=== PATIENT | female | born 1950 | race Caucasian/White ===

== ENCOUNTER → 2018-07-03 12:56 | Outpatient (CLI) | payer MEDICARE, OTHER, SELFPAY ==
--- NOTE | 2018-07-03 13:05 | XR_ITS ---
EXAM: XR thoracic spine 3V HISTORY: Back pain, follow-up fracture ITS.REASON: COMPRESSION FX Comparison: 04/05/2017 FINDINGS: There is normal alignment. There is diffuse osteopenia. There has been a prior vertebroplasty at T7. On her wedge compression changes are also present at the 5 with loss of height anteriorly of 50%. The compressive changes were present on 04/05/2017 MRI. The vertebral plasty has been performed in the interval. There is minimal amount of extrusion of the bone cement in the disc space. IMPRESSION: 1. Wedge compression fractures of T5 and T7. Prior vertebroplasty at T7. No significant change from the previous MRI 2. Generalized osteopenia
--- NOTE | 2018-07-03 13:05 | XR_ITS ---
EXAM: XR lumbar spine min 4V HISTORY: Back pain, follow-up compression fracture ITS.REASON: COMPRESSION FX ORDERING PHYSICIAN: Enio Pritchett PATIENT AGE: 68 years COMPARISON: None FINDINGS: Normal alignment. No fracture or dislocation. There is degenerative disc disease at L5-S1. Atherosclerotic calcification is present in the aortoiliac vessels. Facet arthritic changes are present also at L4-L5 and L5-S1. 3 mm calcific density overlies upper pole the right kidney and a 4 mm calcific density overlies upper pole the left kidney consistent with bilateral nephrolithiasis. IMPRESSION: 1. Degenerative disc disease L5-S1 with facet arthritic changes at L4-L5 and L5-S1. 2. Bilateral nephrolithiasis
== END ==
PROVIDERS: PCP Family Medicine; Visit Provider Family Medicine
DX: S22.050A Wedge compression fracture of T5-T6 vertebra, initial encounter for closed fracture (principal)
CPT/HCPCS: 72072; 72110

== ENCOUNTER → 2020-03-25 13:30 | Outpatient (CLI) | payer MEDICARE, OTHER, SELFPAY ==
[2020-03-25 13:45] LABS: Chol/HDL Ratio 3.7 (1-3.5); Cholesterol 187 mg/dl (140-200); HDL Cholesterol 51 mg/dl (40-60); Triglycerides 130 mg/dl (30-150); VLDL Cholesterol 26 mg/dL (0-40)
[2020-03-25 13:56] LABS: Direct LDL Cholesterol 106.81 mg/dL (100-129)
[2020-03-25 14:04] LABS: T4 (Thyroxine) 10.9 ug/dl (5.53-11.0)
[2020-03-25 14:17] LABS: Thyroid Stimulating Hormone 2.33 uIU/mL (0.465-4.68)
== END ==
PROVIDERS: Visit Provider Family Medicine
DX: I10 Essential (primary) hypertension (principal); R53.83 Other fatigue
CPT/HCPCS: 80061; 84436; 84443

== ENCOUNTER 2020-04-05 17:37 | Observation (INO) | payer MEDICARE, OTHER, SELFPAY ==
[2020-04-05] VITALS (8 sets, daily range): BP systolic 90–136; BP diastolic 51–87; PULSE 70–86; RESP 16–25; TEMP 36.9–37.2; O2SAT 95–97; BMI 27.4; BMI 29.0
--- NOTE | 2020-04-05 17:41 | XR_ITS ---
PROCEDURE: XR CHEST PORTABLE CLINICAL HISTORY: soa Shortness of air COMPARISON: No exams were available for comparison FINDINGS: Mild cardiomegaly without failure. The lungs are clear without infiltrates, suspicious nodules, or pleural effusions. Prior vertebroplasty midthoracic spine IMPRESSION: Mild cardiomegaly otherwise negative Dictated by: Demian Haskins MD 04/06/2020 07:21 Electronically signed by Demian Haskins MD in [place] 04/06/2020 07:21
--- NOTE | 2020-04-05 17:41 | ECG_ITS ---
APPROVED REPORT Exam: Resting ECG HR:83 bpm ECG Measurements Heart Rate 83 AXES WI 170 P 65 QRSd 88 QRS 41 QT 362 T 59 QTc 425 <Conclusion> Normal sinus rhythm RSR' or QR pattern in V1 suggests right ventricular conduction delay Borderline ECG Electronically signed by : Derrell Saeed, 04/06/2020 17:55:00
--- NOTE | 2020-04-05 17:41 | HMH.EDGENADL ---
ED Disposition Clinical Impression: Elevated troponin, Viral upper respiratory illness Disposition: Admitted as Observation Condition on Discharge: Fair Referrals: Rafael Pritchett MD [Primary Care Provider] - - Critical Care Critical Care Time: No Attestation: On , the high probability of a clinically significant, sudden or life threatening deterioration of the following system(s) required my full and direct attention, intervention and personal management. The time I documented below is in addition to time spent performing reported procedures but includes the following listed in this critical care notation. Medical Decision Making - Thanh Inquiry Pt receiving controlled substance: No Vital Signs: 04/05/20 17:37 04/05/20 18:32 Temperature 98.4 F Temperature Source Oral Pulse Rate [Right] 86 84 Respiratory Rate 25 H 20 Blood Pressure [Right Arm] 136/87 97/69 L Blood Pressure Mean [Right Arm] 103 78 Blood Pressure Source [Right Arm] Automatic Cuff Blood Pressure Position [Right Arm] Sitting 02 Sat by Pulse Oximetry 97 97 Oxygen Delivery Method Room Air - Lab Data Lab Results 04/05/20 18:02: Specimen Source R/r, O2 % R/a, ABG pH 7.42, ABG pCO2 29.8 L, ABG pO2 71.2 L, ABG HCO3 19.0 L, ABG Total CO2 19.9 L, ABG O2 Saturation 94, ABG Base Excess -5.5 L, Demian Test Y 04/05/20 18:04: WBC 11.2 H, RBC 3.76 L, Hgb 12.7, Hct 37.1, MCV 98.6, MCH 33.7 H, MCHC 34.2, RDW 13.0, Plt Count 213, MPV 7.9, Neut % (Auto) 90.3 H, Lymph % (Auto) 4.9 L, [place] % (Auto) 3.5, Eos % (Auto) 1.1, Baso % (Auto) 0.2, Neut # (Auto) 10.1 H, Lymph # (Auto) 0.5 L, [place] # (Auto) 0.4, Eos # (Auto) 0.1, Baso # (Auto) 0.0, Total Counted 100, Neutrophils % (Manual) 85 H, Band Neutrophils % 3.0, Lymphocytes % (Manual) 5 L, Monocytes % (Manual) 5, Metamyelocytes % 2.0 H, Platelet Estimate Normal, RBC Morphology Normal 04/05/20 18:04: Sodium 132 L, Potassium 4.6, Chloride 102, Carbon Dioxide 23, Anion Gap 11.6, BUN 29 H, Creatinine 1.80 H, Estimated Creat Clear 35, Estimated GFR 28 L, Est GFR ( Amer) 34 L, Glucose 113 H, Calcium 8.9, Total Bilirubin 0.9, AST 25, ALT 15, Alkaline Phosphatase 99, Troponin I 0.25 H, Total Protein 6.5, Albumin 3.5, Globulin 3.0, Albumin/Globulin Ratio 1.2 04/05/20 18:04: Lactate 1.2 04/05/20 18:04: NT-Pro-B Natriuret Pep 1060 H 04/05/20 18:04: SARS-CoV-2 IgG Ab (Rapid) Negative, SARS-CoV-2 IgM Ab (Rapid) Negative Result diagrams: 04/05/20 18:04 04/05/20 18:04 Orders (Tests/Meds): ED MEDICATIONS Discontinued Medications Generic Name Dose Route Start Last Admin Trade Name Cuongq PRN Reason Stop Dose Admin Ketorolac Tromethamine 15 mg 04/05/20 18:28 04/05/20 18:57 Toradol 30mg/Ml Vial IV 04/05/20 18:29 15 mg ONCE ONE Administration ORDERS Category Date Time Status XR chest portable Stat Exams 04/05/20 17:41 Taken C-Reactive Protein Stat Lab 04/05/20 18:04 Results Comprehensive Metabolic Panel Stat Lab 04/05/20 18:04 Results Erythrocyte Sedimentation Rate Stat Lab 04/05/20 18:04 Received Flu A&B Antigens, Rapid [Rapid Influenza A&B Antigens] Lab 04/05/20 18:45 Received Stat Respiratory Panel (COVID), PCR Stat Lab 04/05/20 18:45 Received Troponin I Q3H Lab 04/05/20 20:00 Ordered Troponin I Q3H Lab 04/05/20 23:45 Ordered Troponin I Stat Lab 04/05/20 18:04 Results Blood Culture Stat Micro 04/05/20 18:04 Received ABG [Arterial Blood Gas] Stat RT 04/05/20 17:43 Ordered ECG Request by /Reuben Stat Y 04/05/20 17:41 Ordered - Radiology Data #1 Image(s): Chest Image Reviewed: Yes I reviewed the patient's radiology image Preliminary Findings: Normal/NAD - ECG Data Tracing #1 EKG interpreted by Peewee Chaparro MD: Rhythm: sinus Rate: 83 [place]: normal Ectopy: none Conduction: normal ST Segment Changes: none T Wave Changes: none Q Waves: none No evidence of acute ischemia or injury Baseline artifact present, but I consider the EKG adequate for accur
[2020-04-05 18:03] LABS: ABG Base Excess -5.5 mmol/L (-2.4-2.3); ABG Oxygen Saturation 94 % (90-100); ABG PCO2 29.8 mmhg (35.0-45.0); ABG PH 7.42 mmol/L (7.35-7.45); ABG PO2 71.2 mmhg (80-100); ABG TCO2 19.9 mmhg (23-27); Allen's Test Y; Oxygen R/A %; Source R/R
[2020-04-05 18:16] LABS: Basophils % 0.2 % (0.1-2.0); Eosinophils # 0.1 K/mm3 (0.0-0.4); Eosinophils % 1.1 % (0.1-12.0); Hematocrit 37.1 % (37.0-47.0); Hemoglobin 12.7 g/dL (12.2-16.2); Lymphocytes # 0.5 K/mm3 (0.7-4.5); Lymphocytes % 4.9 % (10-50); Mean Corpuscular HGB Conc 34.2 g/dL (31.8-35.4); Mean Corpuscular Hemoglobin 33.7 pg (27.0-31.2); Mean Corpuscular Volume 98.6 fl (81-99); Mean Platelet Volume 7.9 fl (7.4-10.4); Monocytes # 0.4 K/mm3 (0.1-1.0); Monocytes % 3.5 % (1.7-9.3); Neutrophils # 10.1 K/mm3 (1.8-7.8); Neutrophils % 90.3 % (37.0-80.0); Platelet Count 213 K/mm3 (142-424); Red Blood Count 3.76 M/mm3 (4.20-5.40); White Blood Count 11.2 K/mm3 (4.8-10.8)
[2020-04-05 18:17] LABS: MANUAL DIFFERENTIAL MANUAL DIFFERENTIAL (MANUAL DIFF)
[2020-04-05 18:20] LABS: Chloride 102 mmol/L (98-107)
[2020-04-05 18:21] LABS: Sodium 132 mmol/L (136-145)
[2020-04-05 18:23] LABS: Alanine Aminotransferase 15 U/L (12-78); Alkaline Phosphatase 99 U/L (38-126); Aspartate Amino Transferase 25 U/L (14-36); Bilirubin,Total 0.9 mg/dl (0.2-1.3); Blood Urea Nitrogen 29 mg/dl (7-17); Creatinine Clearance Estimated 35 mL/min (50-200); Estimated Glomerular Filt Rate 28 ml/min (>60); GFR (African American) 34 ML/MIN (>60); Potassium 4.6 mmoL/L (3.5-5.1)
[2020-04-05 18:24] LABS: Albumin Level 3.5 g/dl (3.5-5.0); Albumin/Globulin Ratio 1.2 (1.1-1.8); Anion Gap 11.6 mEq/L (5-15); Calcium 8.9 mg/dl (8.4-10.2); Carbon Dioxide 23 mmol/L (22.0-30.0); Glucose 113 mg/dl (74-100); Lactic Acid 1.2 mmol/L (0.7-2.1); Total Protein,Serum 6.5 g/dl (6.3-8.2)
[2020-04-05 18:33] LABS: NT Pro Brain Natriuretic Pep. 1060 pg/mL (0-125)
[2020-04-05 18:36] LABS: Troponin I 0.25 ng/ml (0.00-0.034)
[2020-04-05 18:42] LABS: Lymphocytes % 5 % (10-50); Monocytes % 5 % (2-9); Neutrophils % 85 % (42-76); Platelet Estimate Normal; RBC Morphology Normal; Total Cells Counted 100
[2020-04-05 18:43] LABS: Coronavirus 19 IgG Antibody Negative (Negative); Coronavirus 19 IgM Antibody Negative (Negative)
--- NOTE | 2020-04-05 19:04 | PC.NURSE ---
speaking to Dr Montaño
[2020-04-05 19:07] LABS: Adenovirus,PCR Not Detected (NotDetected); Bordetella Pertussis Not Detected (NotDetected); Chlamydophila Pneumoniae, PCR Not Detected (NotDetected); Coronavirus 19, PCR Not Detected (NotDetected); Coronavirus 229E Not Detected (NotDetected); Coronavirus NL63 Not Detected (NotDetected); Coronavirus OC43 Not Detected (NotDetected); Coronovirus HKU1,PCR Not Detected (NotDetected); Human Metapneumovirus Not Detected (NotDetected); Influenza A, PCR Not Detected (NotDetected); Influenza AH1, 2009 Not Detected (NotDetected); Influenza AH1, PCR Not Detected (NotDetected); Influenza AH3,PCR Not Detected (NotDetected); Influenza B, PCR Not Detected (NotDetected); Mycoplasma Pneumoniae, PCR Not Detected (NotDected); Parainfluenza 1, PCR Not Detected (NotDetected); Parainfluenza 2, PCR Not Detected (NotDetected); Parainfluenza 3, PCR Not Detected (NotDetected); Parainfluenza 4, PCR Not Detected (NotDetected); Respiratory Syncytial Virus Not Detected (NotDetected); Rhinovirus/Enterovirus Not Detected (NotDetected)
[2020-04-05 19:08] LABS: C-Reactive Protein 172.4 mg/L (0-4)
[2020-04-05 19:20] LABS: Erythrocyte Sedimentation Rate 110 mm/hr (0-30)
--- NOTE | 2020-04-05 20:47 | PC.NURSE ---
report called to ALEXANDRA Zavala
--- NOTE | 2020-04-05 21:00 | PC.NURSE ---
patient up to floor via wheelchair.
[2020-04-05 21:13] LABS: Troponin I 0.21 ng/ml (0.00-0.034)
--- NOTE | 2020-04-05 21:18 | HMH.HP ---
*Admission Date: 04/05/20 *Chief complaint: cough *History of present illness: pt presented to the ed with fever and prod cough with headache and chest pain -ught in by ambulance. States that she has a bad headache. She has a cough, sometimes produces small amounts of colored mucus. She has a sore throat. She has rhinorrhea. She is short of breath when she lays down. She says she has had the symptoms for 5 days, but has had fevers for 9 days. She is a smoker and has been diagnosed with COPD, but is not on any treatment for that. No known exposures to any illnesses, including COVID-19. pt was admitted for eval and treatment - [facility] History I have reviewed the patient's past medical history: Yes Medical History: Reports:: Anxiety, Congestive Heart Failure, Chronic Obstructive Pulmonary Disease (COPD), Depression, Gall Bladder Disease, Hyperlipidemia, Hypertension, Renal Disease *Have you ever received a pneumonia vaccine?: No *Have you received a flu vaccine this season?: No Other Medical History: Reports: Arthritis Other Surgeries: Yes: Appendectomy - *Social History Smoking Status: Current every day smoker # Packs/Day (cigarettes): 1 Alcohol Intake: never *Occupational Status:: retired *Travel in the last 8 weeks: None - Psychiatric History Pschychiatric History:: Reports:: Anxiety, Depression Family Hx:: Non-contributory Review of Systems - Review of Systems Review of systems:: pertinent systems reviewed and negative unless documented below - Constitutional Reports fatigue, Reports fever(s), Reports weakness - Eyes Denies change in vision - ENT Denies sore throat - *Cardiovascular Reports shortness of breath with activity, Denies chest pain at rest - *Respiratory Denies cough - *Gastrointestinal Denies abdominal pain - *Genitourinary Denies blood in urine - *Musculoskeletal Denies joint pain - Integumentary/Breasts Denies rash - *Neurologic Reports headache(s), Denies seizure-like activity, Denies localized weakness - Psychiatric Denies anxiety Meds Home Medications Medication Instructions Recorded Confirmed Type aspirin 81 mg tablet,delayed 81 mg PO DAILY 03/25/20 04/05/20 History release diltiazem HCl 120 mg capsule,24 120 mg PO DAILY cap 03/25/20 04/05/20 History hr,extended release fluoxetine 20 mg capsule 20 mg PO DAILY cap 03/25/20 04/05/20 History lorazepam 1 mg tablet 1 mg PO TID tab 03/25/20 04/05/20 History losartan 100 mg tablet 100 mg PO DAILY tab 03/25/20 04/05/20 History meloxicam 7.5 mg tablet 7.5 mg PO DAILY tab 03/25/20 04/05/20 History omeprazole 40 mg capsule,delayed 40 mg PO DAILY cap 03/25/20 04/05/20 History release ropinirole 1 mg tablet 1 mg PO DAILY tab 03/25/20 04/05/20 History spironolactone 25 mg tablet 25 mg PO DAILY tab 03/25/20 04/05/20 History Atorvastatin Calcium [Lipitor 40mg 40 mg PO DAILY 04/05/20 04/05/20 History Tab] Hydrocodone/Acetaminophen [[place] 1 tab PO BID 04/05/20 04/05/20 History 7.5-325 Tablet] Ranolazine [Ranolazine ER] 500 mg PO BID 04/05/20 04/05/20 History Allergies Allergy/AdvReac Type Severity Reaction Status Date / Time No Known Allergies Allergy Unverified 03/25/20 10:29 Exam Vital signs and Labs for Last 24 Hours: Temp Pulse Resp BP Pulse Ox 98.7 F 71 21 90/57 L 96 04/05/20 21:11 04/05/20 21:11 04/05/20 21:11 04/05/20 21:11 04/05/20 21:11 Laboratory Results - last 24 hr 04/05/20 18:02: Specimen Source R/r, O2 % R/a, ABG pH 7.42, ABG pCO2 29.8 L, ABG pO2 71.2 L, ABG HCO3 19.0 L, ABG Total CO2 19.9 L, ABG O2 Saturation 94, ABG Base Excess -5.5 L, Demian Test Y 04/05/20 18:04: WBC 11.2 H, RBC 3.76 L, Hgb 12.7, Hct 37.1, MCV 98.6, MCH 33.7 H, MCHC 34.2, RDW 13.0, Plt Count 213, MPV 7.9, Neut % (Auto) 90.3 H, Lymph % (Auto) 4.9 L, [place] % (Auto) 3.5, Eos % (Auto) 1.1, Baso % (Auto) 0.2, Neut # (Auto) 10.1 H, Lymph # (Auto) 0.5 L, [place] # (Auto) 0.4, Eos # (Auto) 0.1, Baso # (Au
[2020-04-06] VITALS: BP 91/56; PULSE 60; PULSE 62; RESP 18; TEMP 36.7; O2SAT 94
[2020-04-06 00:23] LABS: Troponin I 0.16 ng/ml (0.00-0.034)
[2020-04-06 04:00] VITALS: BP 93/45; PULSE 60; PULSE 70; RESP 16; TEMP 36.7; O2SAT 94
--- NOTE | 2020-04-06 04:42 | PC.NURSE ---
Pt is a new admit this shift. Pt was admitted for elevated troponin and viral upper respiratory infection. Pt is A&O x4. Lung sounds are clear with the exception of the bilatral bases which have expiratory wheezing. Bowel sounds are active in all four quadrants. Skin is warm, dry and intact. Pt has a 20 g in the LAC, IV flushes appropriately. Pt is on RA and has tolerated appropriately t/o this shift. Call light is within reach along with all other safety precautions. No complaints at this time, will continue to monitor.
[2020-04-06 05:48] VITALS: BMI 29.0
--- NOTE | 2020-04-06 07:01 | PC.NURSE ---
MD Cain notified of blood culture results. New orders: Start pt on Invanz 1 Gram IV.
[2020-04-06 08:00] VITALS: BP 97/51; PULSE 60; PULSE 65; RESP 16; TEMP 36.7; O2SAT 94
--- NOTE | 2020-04-06 08:11 | P.CONPHA_ITS ---
[facility] Pharmacy VTE Monitoring - Patient Demographics Admission date: 04/05/20 Report Date: 04/06/20 Time: 08:11 Allergies/Adverse Reactions: Patient Allergies No Known Allergies Allergy (Unverified 03/25/20 10:29) Height: 1.65 m Weight: 78.982 kg Patient Problems: Current Active Problems Elevated troponin (Acute) Viral upper respiratory illness (Acute) - VTE Risk Labs: VTE Related Lab Results Hgb 12.7 g/dL (12.2-16.2) 04/05/20 18:04 Hct 37.1 % (37.0-47.0) 04/05/20 18:04 Plt Count 213 K/mm3 (142-424) 04/05/20 18:04 BUN 29 mg/dl (7-17) H 04/05/20 18:04 Creatinine 1.80 mg/dl (0.52-1.04) H 04/05/20 18:04 Estimated Creat Clear 35 mL/min (50-200) 04/05/20 18:04 VTE Score: 10 VTE Risk Level: Moderate Risk - Prophylaxis VTE Prophylaxis Ordered?: Yes Types of VTE Prophylaxis: TEDS Knee High Location of Applied Device: Bilateral Lower Extremeties - VTE Diagnosis Confirmed Treatment or plan recommended: Continue Current Treatment
--- NOTE | 2020-04-06 09:15 | HMH.ACPN2 ---
Internal Medicine - PN: Subj *Date: 04/07/20 *Time: 06:44 Interval history: doing ok - has positive blood culture - gram neg - abx started Exam Vital signs and Labs for Last 24 Hours: Temp Pulse Resp BP Pulse Ox 98.1 F 65 16 97/51 L 94 L 04/06/20 08:00 04/06/20 08:00 04/06/20 08:00 04/06/20 08:00 04/06/20 08:00 Laboratory Results - last 24 hr 04/05/20 18:02: Specimen Source R/r, O2 % R/a, ABG pH 7.42, ABG pCO2 29.8 L, ABG pO2 71.2 L, ABG HCO3 19.0 L, ABG Total CO2 19.9 L, ABG O2 Saturation 94, ABG Base Excess -5.5 L, Demian Test Y 04/05/20 18:04: WBC 11.2 H, RBC 3.76 L, Hgb 12.7, Hct 37.1, MCV 98.6, MCH 33.7 H, MCHC 34.2, RDW 13.0, Plt Count 213, MPV 7.9, Neut % (Auto) 90.3 H, Lymph % (Auto) 4.9 L, [place] % (Auto) 3.5, Eos % (Auto) 1.1, Baso % (Auto) 0.2, Neut # (Auto) 10.1 H, Lymph # (Auto) 0.5 L, [place] # (Auto) 0.4, Eos # (Auto) 0.1, Baso # (Auto) 0.0, Total Counted 100, Neutrophils % (Manual) 85 H, Band Neutrophils % 3.0, Lymphocytes % (Manual) 5 L, Monocytes % (Manual) 5, Metamyelocytes % 2.0 H, Platelet Estimate Normal, RBC Morphology Normal 04/05/20 18:04: Sodium 132 L, Potassium 4.6, Chloride 102, Carbon Dioxide 23, Anion Gap 11.6, BUN 29 H, Creatinine 1.80 H, Estimated Creat Clear 35, Estimated GFR 28 L, Est GFR ( Amer) 34 L, Glucose 113 H, Calcium 8.9, Total Bilirubin 0.9, AST 25, ALT 15, Alkaline Phosphatase 99, Troponin I 0.25 H, C-Reactive Protein 172.4 H, Total Protein 6.5, Albumin 3.5, Globulin 3.0, Albumin/Globulin Ratio 1.2 04/05/20 18:04: Lactate 1.2 04/05/20 18:04: NT-Pro-B Natriuret Pep 1060 H 04/05/20 18:04: SARS-CoV-2 IgG Ab (Rapid) Negative, SARS-CoV-2 IgM Ab (Rapid) Negative 04/05/20 18:04: ESR 110 H 04/05/20 18:45: Influenza Type A Ag Negative, Influenza Type B Ag Negative 04/05/20 18:45: Chlamy pneumoniae PCR Not detected, Adenovirus (PCR) Not detected, B. pertussis DNA (PCR) Not detected, Coronavirus OC43 (PCR) Not detected, Coronavirus HKU1 (PCR) Not detected, Coronavirus 229E (PCR) Not detected, COVID-19 PCR Not detected, Coronavirus NL63 (PCR) Not detected, Human Metapneumovir PCR Not detected, Influenza A (H1) PCR Not detected, Influ A (H1N1/09) PCR Not detected, Influenza A (H3) PCR Not detected, Influenza Type A (PCR) Not detected, Influenza Type B (PCR) Not detected, M. pneumoniae (PCR) Not detected, Parainfluenza 1 (PCR) Not detected, Parainfluenza 2 (PCR) Not detected, Parainfluenza 3 (PCR) Not detected, Parainfluenza 4 (PCR) Not detected, RSV (PCR) Not detected, Entero/Rhino (PCR) Not detected 04/05/20 20:40: Troponin I 0.21 H 04/05/20 23:50: Troponin I 0.16 H I & O for Last 24 hours: Intake & Output 04/03/20 04/04/20 04/05/20 04/06/20 11:59 11:59 11:59 11:59 Intake Total 480 / 480 Balance 480 / 480 Weight 174 lb 2 oz Microbiology Reports for the Last 24 Hours: Microbiology 04/05/20 18:04 Blood Blood Culture - Preliminary 04/05/20 18:04 Blood Blood Culture - Preliminary - Constitutional no acute distress - *Routine HEENT Exam Head: Present: normocephalic Eye: Present: EOMI, PERRL ENT: Present: mucous membranes dry - *Routine Neck Exam Present: supple - *Routine Respiratory Exam Present: CTA bilaterally - *Routine Cardiovascular Exam Present: RRR - *Routine Abdominal Exam Present: soft - *Routine Extremities Exam Absent: calf tenderness - *Routine Skin Exam Present: intact - *Routine Neurological Exam Present: alert - Routine Psychiatric Exam Present: normal affect Assessment and Plan (1) Elevated erythrocyte sedimentation rate Current visit: Yes Status: Acute Category: Medical Code(s): R70.0 - Elevated erythrocyte sedimentation rate (2) Elevated troponin Current visit: Yes Status: Acute Category: Medical Code(s): R79.89 - Other specified abnormal findings of blood chemistry (3) Overweight (BMI 25.0-29.9) Current visit: Yes Status: Acute Category: Medical Code(s): E66.3 - Overweight (4) H
[2020-04-06 10:11] LABS: Chloride 103 mmol/L (98-107); Sodium 132 mmol/L (136-145)
[2020-04-06 10:12] LABS: Potassium 3.9 mmoL/L (3.5-5.1)
[2020-04-06 10:15] LABS: Anion Gap 12.9 mEq/L (5-15); Blood Urea Nitrogen 32 mg/dl (7-17); Calcium 8.8 mg/dl (8.4-10.2); Carbon Dioxide 20 mmol/L (22.0-30.0); Creatinine Clearance Estimated 40 mL/min (50-200); Estimated Glomerular Filt Rate 32 ml/min (>60); GFR (African American) 38 ML/MIN (>60); Glucose 192 mg/dl (74-100)
[2020-04-06 10:17] LABS: Basophils % 0.1 % (0.1-2.0); Eosinophils % 0.2 % (0.1-12.0); Hemoglobin 12.6 g/dL (12.2-16.2); Lymphocytes # 0.6 K/mm3 (0.7-4.5); Lymphocytes % 5.1 % (10-50); Mean Corpuscular HGB Conc 34.9 g/dL (31.8-35.4); Mean Corpuscular Hemoglobin 33.7 pg (27.0-31.2); Mean Corpuscular Volume 96.6 fl (81-99); Mean Platelet Volume 8.5 fl (7.4-10.4); Monocytes # 0.2 K/mm3 (0.1-1.0); Monocytes % 1.7 % (1.7-9.3); Neutrophils % 92.9 % (37.0-80.0); Platelet Count 204 K/mm3 (142-424); Red Blood Count 3.73 M/mm3 (4.20-5.40); White Blood Count 10.8 K/mm3 (4.8-10.8)
[2020-04-06 10:19] LABS: MANUAL DIFFERENTIAL MANUAL DIFFERENTIAL (MANUAL DIFF)
--- NOTE | 2020-04-06 10:31 | HMH.PHAINT ---
MEDICATION RECONCILIATION COMPLETED ON PATIENT USING PATIENTS OWN RX BOTTLES AND EXTERNAL FILL HISTORY FROM PHARMACY. -BHAVNA GARCIA, TEED
[2020-04-06 10:45] LABS: Lymphocytes % 6 % (10-50); Neutrophils % 94 % (42-76); RBC Morphology Normal; Total Cells Counted 100
[2020-04-06 10:46] LABS: Platelet Estimate Clumped
[2020-04-06 12:00] VITALS: PULSE 80
--- NOTE | 2020-04-06 13:14 | PC.NURSE ---
WENT TO THE ROOM AND EXPLAINED TO PT WHY WE NEEDED A IN AND OUT CATH FOR A CLEAN SPECIMEN. PT STATED SHE DID NOT WANT THE IN AND OUT CATH. PT WAS GIVEN 3 CASTILE WIPES AND WAS EDUCATED ON HOW TO CLEAN PROPERLY BEFORE VOIDING. CLEAN HAT WAS PLACED IN THE TOILET. PT VOIDED. URINE COLLECTED. SENT TO LAB.
[2020-04-06 13:39] LABS: Microscopic, Urine URINE MICROSCOPIC (MICROSCOPIC)
[2020-04-06 14:12] LABS: Appearance,Urine CLOUDY (Clear); Bilirubin,Urine Negative (Negative); Blood, Urine TRACE-L (Negative); Color,Urine YELLOW (Yellow); Glucose,Urine (UA) Negative (Negative); Ketones,Urine Negative (Negative); Leukocyte Esterase,Urine 3+ (Negative); Nitrate,Urine Negative (Negative); PH,Urine 5.5 (5.0-8.5); Protein,Urine Negative (Negative)
[2020-04-06 14:22] LABS: Bacteria,Urine 1+ /lpf; RBC,Urine Occasional #/hpf (0-3); WBC,Urine TNTC #/hpf (0-3)
[2020-04-06 16:00] VITALS: BP 120/71; PULSE 69; PULSE 74; RESP 18; TEMP 37.1; O2SAT 93
--- NOTE | 2020-04-06 18:34 | PC.NURSE ---
PT IS RESTING IN BED. NO COMPLAINTS OF DISCOMFORT. ALERT AND ORIENTED X4. PT HAS BEEN AMBULATING TO THE BATHROOM T/O THE SHIFT. EATING AND DRINKING WELL. LUNG SOUNDS CLEAR. BOWEL SOUNDS NORMAL. PT STATES SHE IS HOPING TO GET TO GO HOME TOMORROW. WILL CONTINUE TO MONITOR.
[2020-04-06 20:00] VITALS: BP 124/73; PULSE 70; PULSE 71; RESP 18; TEMP 37.1; O2SAT 94
[2020-04-07] VITALS: BP 114/63; PULSE 70; PULSE 78; RESP 16; TEMP 36.7; O2SAT 95
[2020-04-07 03:52] VITALS: BP 123/72; PULSE 79; RESP 19; TEMP 36.6; O2SAT 94
[2020-04-07 04:00] VITALS: PULSE 70
[2020-04-07 05:00] VITALS: BMI 29.3
--- NOTE | 2020-04-07 07:55 | HMH.ACPN2 ---
Internal Medicine - PN: Subj *Date: 04/07/20 *Time: 07:55 Interval history: afebrile no chest pain gnr in bc final sensitivity pending Exam Vital signs and Labs for Last 24 Hours: Temp Pulse Resp BP Pulse Ox 97.8 F 70 19 123/72 94 L 04/07/20 03:52 04/07/20 04:00 04/07/20 03:52 04/07/20 03:52 04/07/20 03:52 Laboratory Results - last 24 hr 04/06/20 09:03: Urine Color Yellow, Urine Appearance Cloudy, Urine pH 5.5, Ur Specific [place] 1.010, Urine Protein Negative, Urine Glucose (UA) Negative, Urine Ketones Negative, Urine Blood Trace-l, Urine Nitrate Negative, Urine Bilirubin Negative, Urine Urobilinogen 1.0, Ur Leukocyte Esterase 3+ A, Urine RBC Occasional, Urine WBC Tntc, Ur Squamous Epith Cells 5-10, Urine Bacteria 1+ 04/06/20 09:57: Sodium 132 L, Potassium 3.9, Chloride 103, Carbon Dioxide 20 L, Anion Gap 12.9, BUN 32 H, Creatinine 1.60 H, Estimated Creat Clear 40, Estimated GFR 32 L, Est GFR ( Amer) 38 L, Glucose 192 H D, Calcium 8.8 04/06/20 09:57: WBC 10.8, RBC 3.73 L, Hgb 12.6, Hct 36.0 L, MCV 96.6, MCH 33.7 H, MCHC 34.9, RDW 13.0, Plt Count 204, MPV 8.5, Neut % (Auto) 92.9 H, Lymph % (Auto) 5.1 L, [place] % (Auto) 1.7, Eos % (Auto) 0.2, Baso % (Auto) 0.1, Neut # (Auto) 10.0 H, Lymph # (Auto) 0.6 L, [place] # (Auto) 0.2, Eos # (Auto) 0.0, Baso # (Auto) 0.0, Total Counted 100, Neutrophils % (Manual) 94 H, Lymphocytes % (Manual) 6 L, Platelet Estimate Clumped, RBC Morphology Normal I & O for Last 24 hours: Intake & Output 04/04/20 04/05/20 04/06/20 04/07/20 23:59 23:59 23:59 23:59 Intake Total 2295 / 2295 1270 / 1270 Output Total 900 / 900 Balance 1395 / 1395 1270 / 1270 Weight 174 lb 6 oz 174 lb 2 oz 176 lb 6 oz Microbiology Reports for the Last 24 Hours: Microbiology 04/05/20 18:04 Blood Blood Culture - Preliminary 04/05/20 18:04 Blood Blood Culture - Preliminary - Constitutional no acute distress - *Routine HEENT Exam Head: Present: normocephalic Eye: Absent: conjunctival icterus ENT: Present: mucous membranes moist - *Routine Neck Exam Present: supple, trachea midline - *Routine Respiratory Exam Present: CTA bilaterally. Absent: decreased breath sounds, prolonged expiratory phase, respiratory distress, wheezes, crackles - *Routine Cardiovascular Exam Present: RRR, Normal S1, Normal S2. Absent: murmur, JVD - *Routine Abdominal Exam Present: soft. Absent: tenderness, distended, rebound, guarding, organomegaly, mass - *Routine Extremities Exam Absent: cyanosis, clubbing, edema Comments: arthritic changes, diffuse compression fractures t spine - Routine Back/Spine/Pelvis Exam Back/Spine: Present: vertebral tenderness, pain with rotation - *Routine Skin Exam Present: intact. Absent: cyanosis - *Routine Neurological Exam Present: alert, oriented X3 - Routine Psychiatric Exam Present: normal affect, normal thought process Assessment and Plan (1) Elevated erythrocyte sedimentation rate Current visit: Yes Status: Acute Category: Medical Code(s): R70.0 - Elevated erythrocyte sedimentation rate (2) Elevated troponin Current visit: Yes Status: Acute Category: Medical Code(s): R79.89 - Other specified abnormal findings of blood chemistry (3) Overweight (BMI 25.0-29.9) Current visit: Yes Status: Acute Category: Medical Code(s): E66.3 - Overweight (4) Hyponatremia Current visit: Yes Status: Acute Category: Medical Code(s): E87.1 - Hypo-osmolality and hyponatremia (5) Renal insufficiency Current visit: Yes Status: Acute Category: Medical Code(s): N28.9 - Disorder of kidney and ureter, unspecified (6) Elevated brain natriuretic peptide (BNP) level Current visit: Yes Status: Acute Category: Medical Code(s): R79.89 - Other specified abnormal findings of blood chemistry (7) COPD (chronic obstructive pulmonary disease) Current visit: Yes Status: Acute Qualifiers: COPD type: unspecified C
--- NOTE | 2020-04-07 07:55 | HMH.CNCARD ---
History of Present Illness Consult date: 04/07/20 Requesting physician: Alvin Cain Consult reason: chest pain Chief complaint: chest pain, SOA Additional Medical History:: 1. Mild coronary artery disease by cardiac catheterization, 2012 and 2015, medical therapy recommended 2. Tobacco use A. COPD 3. Hypertension A. Echo, 04/07/2020, Preliminary report with EF>55% and no significant valve disease 4. Hyperlipidemia A. Statin therapy 5. Anxiety/depression 6. CKD, stage 3 A. Cr 1.6, GFR 32 and Cr clearance 40 during 03/2020 hospitalization History of present illness: 70-year-old white female admitted through the ER for chest pain and shortness of breath that have reportedly been ongoing over the last several years but recently worse to the point of waking her up at night. Patient states she will take up to 2 nitroglycerin before getting relief. Symptoms typically occur with activity and have been stable for a while but the onset at night was new. Work-up in the ER included elevated troponins of 2.25 along with evidence of UTI with E. coli noted on blood cultures. Patient is on ertapenem and has been afebrile during this hospitalization. EKG showed no acute ST segment changes. Review of her records show cardiac catheterizations both in 2012 and 2015 with reports of mild coronary artery disease with medical therapy recommended. Patient is anxious to get home to take care of her and her son who is 33 but mentally... age 11 and her 2 dogs. [facility] History Medical History: Reports:: Anxiety, Cancer (skin), Congestive Heart Failure, Chronic Obstructive Pulmonary Disease (COPD), Depression, Gall Bladder Disease, Heart Murmur, Hyperlipidemia, Hypertension, Renal Disease Denies:: Diabetes Mellitus Type 1, Diabetes Mellitus Type 2 *Have you ever received a pneumonia vaccine?: Yes *Have you received a flu vaccine this season?: Yes Other Medical History: Reports: Arthritis, Cataracts Laterality Cases: Left: Other Other Surgeries: Yes: Appendectomy, Cardiac Catheterization, Cholecystectomy, Skin Cancer Excision, Tubal Ligation - *Social History Last grade of school completed: 11th or 12th Smoking Status: Current every day smoker Tobacco Type: cigarettes # Packs/Day (cigarettes): 1 Alcohol Intake: current Alcohol Intake Frequency:: holidays/special occasions only *Occupational Status:: retired *Travel in the last 8 weeks: Inside the [place] - Psychiatric History Pschychiatric History:: Reports:: Anxiety, Depression Family Hx:: Non-contributory Meds Home Medications Medication Instructions Recorded Confirmed Type aspirin 81 mg tablet,delayed 81 mg PO DAILY 03/25/20 04/05/20 History release diltiazem HCl 120 mg capsule,24 120 mg PO DAILY cap 03/25/20 04/05/20 History hr,extended release fluoxetine 20 mg capsule 20 mg PO DAILY cap 03/25/20 04/05/20 History lorazepam 1 mg tablet 0.5 mg PO TIDP PRN tab 03/25/20 04/06/20 History losartan 100 mg tablet 100 mg PO DAILY tab 03/25/20 04/05/20 History meloxicam 7.5 mg tablet 7.5 mg PO DAILY tab 03/25/20 04/05/20 History omeprazole 40 mg capsule,delayed 40 mg PO DAILY cap 03/25/20 04/05/20 History release ropinirole 1 mg tablet 1 mg PO DAILY tab 03/25/20 04/05/20 History spironolactone 25 mg tablet 25 mg PO DAILY tab 03/25/20 04/05/20 History Atorvastatin Calcium [Lipitor 40mg 40 mg PO HS 04/05/20 04/06/20 History Tab] Hydrocodone/Acetaminophen [[place] 1 tab PO BIDP PRN 04/05/20 04/06/20 History 7.5-325 Tablet] Ranolazine [Ranolazine ER] 500 mg PO BID 04/05/20 04/05/20 History Allergies Allergy/AdvReac Type Severity Reaction Status Date / Time No Known Allergies Allergy Unverified 03/25/20 10:29 Review of Systems - Review of Systems Review of systems:: pertinent systems reviewed and negative unless documented below - *Cardiovascular Reports chest pain, Reports shortness of breath, Reports shortness of breath with a
[2020-04-07 08:00] VITALS: BP 137/84; PULSE 70; PULSE 73; RESP 18; TEMP 36.8; O2SAT 94
--- NOTE | 2020-04-07 08:00 | CA_ITS ---
APPROVED REPORT EXAM: Comprehensive 2D, Doppler, and color-flow Echocardiogram Coach Driver: Lesa Randolph RVT Ht: 5 ft 4 in Wt: 174lbs BSA: 1.84 BP: 97/51 mmHg Indications: MURMUR,ELEVATED TROP,FEVER,SOA,SMOKER,COPD, 2D Dimensions LVOT 2.22 cm (M/F) 1.5-2.5 M-Mode Dimensions RVDd 2.89 cm (0.9-2.6) LVDd 5.00 cm (3.5-5.7) LVDs 3.54 cm (3.5-5.7) IVSd 0.64 cm (0.6-1.1) PWd 0.68 cm (0.6-1.1) EF (Teich) 55.80% FS 29.20% EDV (Teich) 118.20 mL ESV (Teich) 52.30 mL LV Diastology E/A Ratio 0.95 Mitral Valve MV A Velocity 85.00 (40-130 cm/s) Left Ventricle Left atrium is mildly enlarged, left ventricle is normal size, mild concentric left ventricular hypertrophy, visually estimated ejection fraction 55% with no regional wall motion abnormality, grade 1 diastolic dysfunction seen without tissue Doppler evidence of raise left atrial pressure. Right Ventricle Right atrium and right ventricle are mildly enlarged with normal contractility. Aortic Valve Aortic valve is minimally thickened and fibrosed, there is no aortic stenosis or aortic insufficiency. Mitral Valve Mitral valve leaflets are minimally thickened, there is mild mitral regurgitation. Tricuspid Valve Tricuspid valve is grossly normal, there is mild tricuspid regurgitation, tricuspid regurgitation jet velocity is inadequate for calculation of the right ventricular systolic pressure. Pulmonic Valve Pulmonic valve is poorly visualized. Great Vessels Aortic root is normal size. Pericardium No significant pericardial effusion noted. Conclusion 1. Mild biatrial alignment, normal left ventricular size, mild concentric left ventricular hypertrophy, visually estimated ejection fraction 55% with no regional wall motion abnormality, grade 1 diastolic dysfunction seen without tissue Doppler evidence of raise left atrial pressure. 2. Mildly enlarged right ventricle with normal contractility. 3. Mild mitral and tricuspid regurgitation. 4. No significant pericardial effusion noted. Electronically signed by : Ubaldo Bagley, 04/07/2020 17:19:26
--- NOTE | 2020-04-07 10:18 | SW/DCPLANNER ---
I have spoke with this patient regarding discharge plans. Patient stated that she is ready to return home today. Patient will need IM/IV antibiotics at time of discharge. Patient is agreeable and prefers to return to [facility] daily for outpatient antibiotics. Patient may discharge home today.
[2020-04-07 12:00] VITALS: PULSE 60
--- NOTE | 2020-04-07 12:54 | HMH.DCSUM ---
General - General Admission date:: 04/05/20 Discharge date: 04/07/20 HPI HPI: pt presented to the ed with fever and prod cough with headache and chest pain -ught in by ambulance. States that she has a bad headache. She has a cough, sometimes produces small amounts of colored mucus. She has a sore throat. She has rhinorrhea. She is short of breath when she lays down. She says she has had the symptoms for 5 days, but has had fevers for 9 days. She is a smoker and has been diagnosed with COPD, but is not on any treatment for that. No known exposures to any illnesses, including COVID-19. pt was admitted for eval and treatment - Hospital Course Hospital Course: placed on iv invanz for uti bc=gram neg rods, ecoli final id pending troponins elevated x 3 seen in consultation w/cardiol plan is for cath later this week, she prefers Dr London only imdur added anxious to go home today will plan for 10 day course of antibiotics will stay on invanz for now pending final id Objective Vital signs: Temp Pulse Resp BP Pulse Ox 98.2 F 73 18 137/84 94 L 04/07/20 08:00 04/07/20 08:00 04/07/20 08:00 04/07/20 08:00 04/07/20 08:00 no acute distress, cooperative - *Routine HEENT Exam Head: Present: normocephalic, atraumatic. Absent: hematoma Eye: Absent: conjunctival icterus ENT: Present: mucous membranes moist - *Routine Neck Exam Present: supple, trachea midline - *Routine Respiratory Exam Present: CTA bilaterally, diminished air movement. Absent: accessory muscle use, rales, respiratory distress, wheezes, crackles - *Routine Cardiovascular Exam Present: RRR, Normal S1, Normal S2. Absent: murmur - *Routine Abdominal Exam Present: soft. Absent: tenderness, distended, rebound, guarding - *Routine Extremities Exam Present: joint swelling. Absent: cyanosis, clubbing, edema - Routine Back/Spine/Pelvis Exam Back/Spine: Present: vertebral tenderness. Absent: CVA tenderness - *Routine Skin Exam Present: intact, normal turgor. Absent: cyanosis, mottling, jaundice - *Routine Neurological Exam Present: alert, oriented X3, moving all extremities, hearing grossly intact, normal speech. Absent: vision grossly intact - Routine Psychiatric Exam Present: normal affect, normal thought process, cooperative, good insight, good judgment Results Pending studies at discharge: blood culture final sensitivity Labs on day of discharge: Labs from last 24 hours 04/06/20 09:03 Urine Color Yellow Urine Appearance Cloudy Urine pH 5.5 Ur Specific [place] 1.010 Urine Protein Negative Urine Glucose (UA) Negative Urine Ketones Negative Urine Blood Trace-l Urine Nitrate Negative Urine Bilirubin Negative Urine Urobilinogen 1.0 Ur Leukocyte Esterase 3+ A Urine RBC Occasional Urine WBC Tntc Ur Squamous Epith Cells 5-10 Urine Bacteria 1+ Preliminary micro results at discharge 04/05/20 18:04 Blood Culture - Preliminary Blood Gram Negative Rods 04/05/20 18:04 Blood Culture - Preliminary Blood Gram Negative Rods DS: Diagnosis - Discharge Diagnosis (1) Elevated erythrocyte sedimentation rate Start date: 04/05/20 Status: Acute (2) Elevated troponin Start date: 04/05/20 Status: Acute (3) Overweight (BMI 25.0-29.9) Status: Chronic (4) Hyponatremia Status: Acute (5) Renal insufficiency Start date: 04/05/20 Status: Acute (6) Elevated brain natriuretic peptide (BNP) level Start date: 04/05/20 Status: Acute (7) COPD (chronic obstructive pulmonary disease) Status: Chronic (8) Tobacco use Status: Chronic (9) UTI (urinary tract infection) Status: Acute (10) Arthritis Status: Chronic (11) History of stroke in adulthood Status: Chronic (12) Gram-negative bacteremia Start date: 04/05/20 Status: Acute Discharge Plan - Patient Discharge Instructions ACTIVITY: Limited activity DI
--- NOTE | 2020-04-07 15:05 | HMH.PHAINT ---
Discharge medication education completed. Pt prescriptions for Plavix and imdur sent to [facility] in [place]. Pt encouraged to call us with anyquestion or concerns
== END 2020-04-07 14:50 | disposition home or self-care (01) ==
LOC: ER 19:09 → 2ND 19:16
PROVIDERS: Admitting Provider Internal Medicine Adolescent Medicine; Emergency Provider Emergency Medicine; PCP Emergency Medicine; Visit Provider Family Medicine
DX: R07.9 Chest pain, unspecified (principal); N39.0 Urinary tract infection, site not specified; N18.3 Chronic kidney disease, stage 3 (moderate); I12.9 Hypertensive chronic kidney disease with stage 1 through stage 4 chronic kidney disease, or unspecified chronic kidney disease; I50.9 Heart failure, unspecified; J44.9 Chronic obstructive pulmonary disease, unspecified; Z72.0 Tobacco use; Z79.82 Long term (current) use of aspirin; Z79.899 Other long term (current) drug therapy; R78.81 Bacteremia; B96.20 Unspecified Escherichia coli [E. coli] as the cause of diseases classified elsewhere
CPT/HCPCS: 36415; 71045; 80048; 80053; 81001; 82803; 83605; 83880; 84484; 85007; 85025; 85651; 86140; 86328; 87040; 87077; 87086; 87088; 87186; 87275; 87276; 87581; 87633; 87798; 93005; 93306; 96374; 96375; 99285; G0378; J1335

== ENCOUNTER 2020-04-08 13:15 | Outpatient (CLI) | payer MEDICARE, OTHER, SELFPAY ==
[2020-04-08 13:38] VITALS: BP 111/70; PULSE 68; RESP 18; TEMP 36.8; O2SAT 96
== END 2020-04-08 13:38 | disposition home or self-care (01) ==
LOC: INF 13:26
PROVIDERS: Visit Provider Family Medicine
DX: R78.81 Bacteremia (principal)
CPT/HCPCS: 96372; J1335

== ENCOUNTER 2020-04-09 07:58 | Day surgery (SDC) | payer MEDICARE, OTHER, SELFPAY ==
[2020-04-09] VITALS (18 sets, daily range): BP systolic 100–163; BP diastolic 64–95; PULSE 52–67; RESP 16–20; TEMP 36.4; O2SAT 92–98; BMI 29.3
--- NOTE | 2020-04-09 | IR_ITS ---
APPROVED REPORT Patient Location: Outpatient PROCEDURES Left heart catheterization Left ventriculogram Selective coronary angiogram INDICATION Recent non-ST elevation myocardial infarction, Known coronary artery disease Informed consent was obtained prior to the procedure. COMPLICATIONS none Estimated Blood Loss: less than 10 mls TECHNIQUE One percent lidocaine was used to anesthetize the right groin. The right femoral artery was accessed via the Seldinger technique. A 4-Frisian sheath was placed in the right femoral artery. The JL-4 and JR-4 catheter was also used to perform left heart catheterization left ventriculogram and selective coronary angiogram. At the end of the procedure the patient was transferred to the post-op holding area in stable condition for arterial sheath removal. ANGIOGRAPHIC RESULTS The left main artery Normal The left anterior descending artery Has proximal 10 to 20% stenoses followed by mid vessel 30% stenosis The circumflex artery Nondominant has mid vessel 30% stenosis The right coronary artery Is a dominant vessel and has proximal 30% stenosis and a long tubular 30% stenosis through this entire mid course The JOHNSON ventriculogram reveals Normal 65% The left ventricular end-diastolic pressure 10 mmHg IMPRESSION Mild [id number] coronary artery disease as described above Type II myocardial infarction with recent elevated troponins likely stemming from urosepsis Normal ejection fraction Normal left ventricular end-diastolic pressure PLAN 1. Continue medical management Electronically signed by : Nicola London, 04/09/2020 10:49:15
[2020-04-09 08:56] LABS: Chloride 107 mmol/L (98-107); Potassium 4.2 mmoL/L (3.5-5.1); Sodium 136 mmol/L (136-145)
[2020-04-09 08:59] LABS: Anion Gap 10.2 mEq/L (5-15); Basophils % 0.6 % (0.1-2.0); Blood Urea Nitrogen 18 mg/dl (7-17); Calcium 8.7 mg/dl (8.4-10.2); Carbon Dioxide 23 mmol/L (22.0-30.0); Creatinine Clearance Estimated 54 mL/min (50-200); Eosinophils # 0.3 K/mm3 (0.0-0.4); Eosinophils % 3.5 % (0.1-12.0); Estimated Glomerular Filt Rate 44 ml/min (>60); GFR (African American) 54 ML/MIN (>60); Glucose 93 mg/dl (74-100); Hematocrit 35.5 % (37.0-47.0); Hemoglobin 12.4 g/dL (12.2-16.2); Lymphocytes # 1.3 K/mm3 (0.7-4.5); Lymphocytes % 18.9 % (10-50); Mean Corpuscular Hemoglobin 33.7 pg (27.0-31.2); Mean Corpuscular Volume 96.2 fl (81-99); Mean Platelet Volume 7.9 fl (7.4-10.4); Monocytes # 0.5 K/mm3 (0.1-1.0); Monocytes % 6.7 % (1.7-9.3); Neutrophils % 70.3 % (37.0-80.0); Platelet Count 264 K/mm3 (142-424); Red Blood Count 3.68 M/mm3 (4.20-5.40); Red Cell Distribution Width 13.3 % (11.5-17.5); White Blood Count 7.1 K/mm3 (4.8-10.8)
== END 2020-04-09 14:19 | disposition home or self-care (01) ==
PROVIDERS: PCP Family Medicine; Visit Provider Internal Medicine
DX: I21.A1 Myocardial infarction type 2 (principal); I21.4 Non-ST elevation (NSTEMI) myocardial infarction; I11.0 Hypertensive heart disease with heart failure; I50.9 Heart failure, unspecified; I25.10 Atherosclerotic heart disease of native coronary artery without angina pectoris; Z72.0 Tobacco use; Z79.899 Other long term (current) drug therapy
CPT/HCPCS: 80048; 85025; 93458; 99152; C1725; C1769; J1335; J1644; Q9967

== ENCOUNTER 2020-04-10 11:01 | Outpatient (CLI) | payer MEDICARE, OTHER, SELFPAY ==
[2020-04-10 11:24] VITALS: BP 148/89; PULSE 68; RESP 18; TEMP 36.1; O2SAT 97
== END 2020-04-10 11:24 | disposition home or self-care (01) ==
LOC: INF 11:01
PROVIDERS: Visit Provider Family Medicine
DX: R78.81 Bacteremia (principal); N39.0 Urinary tract infection, site not specified
CPT/HCPCS: 96372; J1335

== ENCOUNTER 2020-04-11 14:07 | Outpatient (CLI) | payer MEDICARE, OTHER, SELFPAY ==
[2020-04-11 14:24] VITALS: BP 134/74; PULSE 69; RESP 18; TEMP 36.7; O2SAT 97
--- NOTE | 2020-04-11 14:24 | PC.NURSE ---
1424 Invanz 1 gram IM given per B/L gluteus maxiumus, 500mg IM L, 500mg IM R. Pt tolerated well
== END 2020-04-11 14:37 | disposition home or self-care (01) ==
LOC: INF 14:07
PROVIDERS: Visit Provider Family Medicine
DX: N39.0 Urinary tract infection, site not specified (principal); R78.81 Bacteremia
CPT/HCPCS: 96372; J1335

== ENCOUNTER → 2020-04-12 13:21 | Outpatient (CLI) | payer MEDICARE, OTHER, SELFPAY ==
[2020-04-12 14:25] VITALS: BP 107/61; PULSE 54; RESP 16; TEMP 36.9; O2SAT 94
[2020-04-12 14:29] VITALS: BP 125/68; PULSE 63; RESP 16; TEMP 36.8; O2SAT 93
--- NOTE | 2020-04-12 15:05 | PC.NURSE ---
Pt given 1 gm invanz 0.5 gm in each gluteus. Pt tolerated well, and chose not to wait for mx after injections. VSS.
== END ==
PROVIDERS: PCP Family Medicine; Visit Provider Family Medicine
DX: N39.0 Urinary tract infection, site not specified (principal); R78.81 Bacteremia
CPT/HCPCS: 96372; 96374; J1335

== ENCOUNTER 2020-04-13 09:33 | Outpatient (CLI) | payer MEDICARE, OTHER, SELFPAY ==
[2020-04-13 09:33] VITALS: BP 108/69; PULSE 68; RESP 18; TEMP 36.8; O2SAT 95
== END 2020-04-13 10:00 | disposition home or self-care (01) ==
LOC: INF 09:35
PROVIDERS: PCP Family Medicine; Visit Provider Family Medicine
DX: N39.0 Urinary tract infection, site not specified (principal); R78.81 Bacteremia
CPT/HCPCS: 96372; J1335

== ENCOUNTER 2020-04-14 11:58 | Outpatient (CLI) | payer MEDICARE, OTHER, SELFPAY ==
[2020-04-14 12:09] VITALS: BP 125/71; PULSE 65; RESP 18; TEMP 36.2; O2SAT 95
--- NOTE | 2020-04-14 12:18 | PC.NURSE ---
1218 Invanz 1 gram IM given, 500mg L gluteus eyad, 500mg R gluteus eyad for total of 1 gram.
== END 2020-04-14 12:28 | disposition home or self-care (01) ==
LOC: INF 11:58
PROVIDERS: Visit Provider Family Medicine
DX: N39.0 Urinary tract infection, site not specified (principal); R78.81 Bacteremia
CPT/HCPCS: 96372; J1335

== ENCOUNTER 2020-04-15 12:48 | Outpatient (CLI) | payer MEDICARE, OTHER, SELFPAY ==
[2020-04-15 13:04] VITALS: BP 129/77; PULSE 63; RESP 18; TEMP 36.4; O2SAT 96
== END 2020-04-15 13:20 | disposition home or self-care (01) ==
LOC: INF 12:48
PROVIDERS: Visit Provider Family Medicine
DX: N39.0 Urinary tract infection, site not specified (principal); R78.81 Bacteremia
CPT/HCPCS: 96372; J1335

== ENCOUNTER → 2020-04-16 12:01 | Outpatient (CLI) | payer MEDICARE, OTHER, SELFPAY ==
--- NOTE | 2020-04-16 12:20 | CA_ITS ---
APPROVED REPORT Pit Steward: PINO Laterality: Bilateral Indications: bilateral bruits Risk Factors Hypertension: Hyperlipidemia Smoking Doppler Spectral Velocity Analysis ECA (R) 62.90/6.40 cm/s ECA (L) 62.60/13.40 cm/s dICA (R) 62.10/24.00 cm/s dICA (L) 89.80/29.90 cm/s Brown (R) 68.80/21.80 cm/s Brown (L) 75.60/24.70 cm/s pICA (R) 80.10/27.70 cm/s pICA (L) 48.60/15.00 cm/s dCCA (R) 48.30/12.80 cm/s dCCA (L) 49.20/14.50 cm/s pCCA (R) 59.90/12.40 cm/s pCCA (L) 60.70/9.00 cm/s Vert (R) 28.70/9.40 cm/s Vert (L) 41.20/14.40 cm/s ICA/CCA 1.66 ICA/CCA 1.83 Findings Duplex evaluation demonstrates stenosis of the right proximal internal carotid artery in the range of 20-49% with PSV <140 cm/sec, EDV <100 cm/sec, and IC/CC Ratio <4.0.Duplex evaluation demonstrates stenosis of the left proximal internal carotid artery 20-49% with PSV <140 cm/sec, EDV <100 cm/sec, and IC/CC Ratio <4.0. Conclusion Duplex evaluation demonstrates stenosis of the right proximal internal carotid artery in the range of 20-49% with PSV <140 cm/sec, EDV <100 cm/sec, and IC/CC Ratio <4.0.Duplex evaluation demonstrates stenosis of the left proximal internal carotid artery 20-49% with PSV <140 cm/sec, EDV <100 cm/sec, and IC/CC Ratio <4.0. Electronically signed by : Demian Haskins MD 04/16/2020 16:25:35
== END ==
PROVIDERS: PCP Family Medicine; Visit Provider Family Medicine
DX: R09.89 Other specified symptoms and signs involving the circulatory and respiratory systems (principal)
CPT/HCPCS: 93880

== ENCOUNTER → 2020-12-15 17:35 | Outpatient (CLI) | payer MEDICARE, OTHER, SELFPAY | PROVIDERS: Visit Provider Family Medicine | DX: L02.91 Cutaneous abscess, unspecified (principal) | CPT/HCPCS: 87070; 87077; 87186; 87205 ==

== ENCOUNTER → 2021-03-26 17:26 | Outpatient (CLI) | payer MEDICARE, OTHER, SELFPAY ==
[2021-03-26 20:00] LABS: Thyroid Stimulating Hormone 2.01 uIU/mL (0.465-4.68)
== END ==
PROVIDERS: Visit Provider Family Medicine
DX: E03.9 Hypothyroidism, unspecified (principal)
CPT/HCPCS: 84443

== ENCOUNTER 2021-04-19 15:30 | Emergency (ER) | payer MEDICARE, OTHER, SELFPAY ==
[2021-04-19 15:32] VITALS: BP 118/82; PULSE 70; RESP 18; TEMP 36.7; O2SAT 98; BMI 25.8
--- NOTE | 2021-04-19 15:44 | ECG_ITS ---
APPROVED REPORT Exam: Resting ECG HR:67 bpm ECG Measurements Heart Rate 67 AXES ND 188 P 91 QRSd 88 QRS 8 QT 408 T 63 QTc 431 Conclusion Normal sinus rhythm Normal ECG Electronically signed by : Reece Dumont, 04/21/2021 17:03:33
--- NOTE | 2021-04-19 15:55 | CT_ITS ---
PROCEDURE INFORMATION: Exam: CT Head Without Contrast Exam date and time: 04/19/2021 3:55 PM Age: 71 years old Clinical indication: Injury or trauma; Fall; Blunt trauma (contusions or hematomas); Additional info: Fall/loc TECHNIQUE: Imaging protocol: Computed tomography of the head without contrast. Radiation optimization: All CT scans at this facility use at least one of these dose optimization techniques: automated exposure control; mA and/or kV adjustment per patient size (includes targeted exams where dose is matched to clinical indication); or iterative reconstruction. COMPARISON: NECKW CT SOFT TISSUE NECK W/CONTRAST 07/27/2016 10:19 AM FINDINGS: Brain: No hemorrhage, mass effect or midline shift. Age-related atrophy and chronic white matter ischemic changes, with no evidence of an acute intracranial abnormality. Cerebral ventricles: No ventriculomegaly. Paranasal sinuses: Visualized sinuses are unremarkable. No fluid levels. Mastoid air cells: Visualized mastoid air cells are well aerated. Vasculature: The vasculature demonstrates diffuse mild atherosclerotic calcification. Bones/joints: No acute fracture. Soft tissues: No acute changes IMPRESSION: 1. No hemorrhage, mass effect or midline shift. 2. Age-related atrophy and chronic white matter ischemic changes, with no evidence of an acute intracranial abnormality.
--- NOTE | 2021-04-19 15:55 | XR_ITS ---
PROCEDURE INFORMATION: Exam: XR Left Elbow Exam date and time: 04/19/2021 3:55 PM Age: 71 years old Clinical indication: Injury or trauma; Fall; Blunt trauma (contusions or hematomas); Elbow; Left TECHNIQUE: Imaging protocol: XR Left elbow. Views: 1 or 2 views. COMPARISON: No relevant prior studies available. FINDINGS: Bones/joints: There is no evidence of acute fracture. There is no evidence of joint malalignment or dislocation. Soft tissues: There are no soft tissue masses or fluid collections. IMPRESSION: 1. No evidence of acute fracture. 2. No evidence of acute dislocation.
--- NOTE | 2021-04-19 15:55 | XR_ITS ---
PROCEDURE INFORMATION: Exam: XR Left Shoulder Exam date and time: 04/19/2021 3:55 PM Age: 71 years old Clinical indication: Injury or trauma; Fall; Blunt trauma (contusions or hematomas); Shoulder; Left TECHNIQUE: Imaging protocol: XR Left shoulder. Views: 2 or more views. COMPARISON: CR XR CHEST PORTABLE 04/05/2020 6:01 PM FINDINGS: Bones/joints: There is no evidence of acute fracture. There is no evidence of joint malalignment or dislocation. Soft tissues: There are no soft tissue masses or fluid collections. IMPRESSION: 1. No evidence of acute fracture. 2. No evidence of acute dislocation.
--- NOTE | 2021-04-19 15:55 | XR_ITS ---
PROCEDURE INFORMATION: Exam: XR Left Wrist Exam date and time: 04/19/2021 3:55 PM Age: 71 years old Clinical indication: Injury or trauma; Fall; Blunt trauma (contusions or hematomas); Wrist; Left TECHNIQUE: Imaging protocol: XR Left wrist. Views: 1 or 2 views. COMPARISON: No relevant prior studies available. FINDINGS: Bones/joints: Bones are osteopenic. There is no evidence of acute fracture. There is no evidence of joint malalignment or dislocation. Degenerative changes of the 1st carpometacarpal joint. Soft tissues: There are no soft tissue masses or fluid collections. IMPRESSION: 1. Bones are osteopenic. 2. No evidence of acute fracture. 3. No evidence of acute dislocation.
--- NOTE | 2021-04-19 15:55 | XR_ITS ---
PROCEDURE INFORMATION: Exam: XR Left Knee Exam date and time: 04/19/2021 3:55 PM Age: 71 years old Clinical indication: Injury or trauma; Fall; Blunt trauma; Knee; Left TECHNIQUE: Imaging protocol: XR Left knee. Views: 1 or 2 views. COMPARISON: No relevant prior studies available. FINDINGS: Bones/joints: Suprapatellar joint effusion. There is no evidence of acute fracture. There is no evidence of joint malalignment or dislocation. Soft tissues: Mild soft tissue swelling. IMPRESSION: 1. Suprapatellar joint effusion. 2. Mild soft tissue swelling. 3. No evidence of acute fracture. 4. No evidence of acute dislocation.
--- NOTE | 2021-04-19 15:55 | XR_ITS ---
PROCEDURE INFORMATION: Exam: XR Left Hip Exam date and time: 04/19/2021 3:55 PM Age: 71 years old Clinical indication: Injury or trauma; Fall; Blunt trauma (contusions or hematomas); Left; Hip TECHNIQUE: Imaging protocol: XR Left hip. Views: 2 or 3 views hip with pelvis when performed. COMPARISON: CR [id number] XR lumbar spine min 4V 07/03/2018 1:26 PM FINDINGS: Bones/joints: There is no evidence of acute fracture. There is no evidence of joint malalignment or dislocation. Mild degenerative changes of the left hip. Soft tissues: There are no soft tissue masses or fluid collections. IMPRESSION: 1. No evidence of acute fracture. 2. No evidence of acute dislocation. 3. Mild degenerative changes of the left hip.
--- NOTE | 2021-04-19 15:55 | XR_ITS ---
PROCEDURE INFORMATION: Exam: XR Chest Exam date and time: 04/19/2021 3:55 PM Age: 71 years old Clinical indication: Injury or trauma; Fall; Blunt trauma (contusions or hematomas) TECHNIQUE: Imaging protocol: XR of the chest. Views: 1 view. COMPARISON: CR XR CHEST PORTABLE 04/05/2020 6:01 PM FINDINGS: Lungs: The lungs are hyperinflated, consistent with underlying small airways disease. Pleural spaces: There is no evidence of pneumothorax. Heart/Mediastinum: Unremarkable. No cardiomegaly. Vasculature: The vasculature demonstrates diffuse mild atherosclerotic calcification. Bones/joints: Vertebroplasty changes of the thoracic spine present. The thoracic spine demonstrates moderate degenerative changes at multiple levels. IMPRESSION: 1. The lungs are hyperinflated, consistent with underlying small airways disease. 2. There is no evidence of pneumothorax.
--- NOTE | 2021-04-19 16:03 | CT_ITS ---
PROCEDURE INFORMATION: Exam: CT Cervical Spine Without Contrast Exam date and time: 04/19/2021 4:03 PM Age: 71 years old Clinical indication: Injury or trauma; Fall; Blunt trauma TECHNIQUE: Imaging protocol: Computed tomography images of the cervical spine without contrast. Radiation optimization: All CT scans at this facility use at least one of these dose optimization techniques: automated exposure control; mA and/or kV adjustment per patient size (includes targeted exams where dose is matched to clinical indication); or iterative reconstruction. COMPARISON: NECKW CT SOFT TISSUE NECK W/CONTRAST 07/27/2016 10:19 AM FINDINGS: Bones/joints: There is a nonspecific reversal of the normal cervical lordosis. There is no evidence of acute fracture. Discs/Spinal canal/Neural foramina: The cervical spine demonstrates mild degenerative changes at multiple levels. Lungs: Lung apices are normal. Vasculature: The vasculature demonstrates diffuse mild atherosclerotic calcification. Soft tissues: Unremarkable. IMPRESSION: 1. There is a nonspecific reversal of the normal cervical lordosis. 2. The cervical spine demonstrates mild degenerative changes at multiple levels. 3. No evidence of acute fracture.
[2021-04-19 16:05] LABS: Basophils # 0.1 K/mm3 (0-0.2); Basophils % 0.8 % (0.1-2.0); Eosinophils # 0.2 K/mm3 (0.0-0.4); Eosinophils % 2.7 % (0.1-12.0); Hematocrit 36.7 % (37.0-47.0); Hemoglobin 12.4 g/dL (12.2-16.2); Lymphocytes % 26.1 % (10-50); Mean Corpuscular HGB Conc 33.7 g/dL (31.8-35.4); Mean Corpuscular Volume 97.9 fl (81-99); Mean Platelet Volume 7.9 fl (7.4-10.4); Monocytes # 0.4 K/mm3 (0.1-1.0); Monocytes % 5.4 % (1.7-9.3); Neutrophils % 64.9 % (37.0-80.0); Platelet Count 325 K/mm3 (142-424); Red Blood Count 3.75 M/mm3 (4.20-5.40); Red Cell Distribution Width 13.8 % (11.5-17.5); White Blood Count 7.7 K/mm3 (4.8-10.8)
[2021-04-19 16:06] LABS: Chloride 106 mmol/L (98-107); Sodium 136 mmol/L (136-145)
[2021-04-19 16:07] LABS: Potassium 4.3 mmoL/L (3.5-5.1)
--- NOTE | 2021-04-19 16:07 | PC.NURSE ---
Pt with rad
[2021-04-19 16:09] LABS: Blood Urea Nitrogen 21 mg/dl (7-17); Creatinine Clearance Estimated 49 mL/min (50-200); Estimated Glomerular Filt Rate 44 ml/min (>60); GFR (African American) 53 ML/MIN (>60)
[2021-04-19 16:10] LABS: Anion Gap 11.3 mEq/L (5-15); Calcium 9.2 mg/dl (8.4-10.2); Carbon Dioxide 23 mmol/L (22.0-30.0); Glucose 87 mg/dl (74-100)
[2021-04-19 16:22] LABS: Troponin I < 0.01 ng/ml (0.00-0.034)
--- NOTE | 2021-04-19 16:33 | XR_ITS ---
PROCEDURE INFORMATION: Exam: XR Left Ribs Exam date and time: 04/19/2021 4:33 PM Age: 71 years old Clinical indication: Injury or trauma; Fall; Rib area, left side; Blunt trauma TECHNIQUE: Imaging protocol: XR Left ribs. Views: 2 views. COMPARISON: CR XR CHEST PORTABLE 04/19/2021 4:20 PM FINDINGS: Bones/joints: There is no evidence of acute fracture. Vertebroplasty changes of the thoracic spine noted. Pleural space: There is no evidence of pneumothorax. Soft tissues: There are no soft tissue masses or fluid collections. IMPRESSION: 1. No evidence of acute fracture. 2. There is no evidence of pneumothorax.
--- NOTE | 2021-04-19 16:42 | PC.NURSE ---
pt returned from rad
[2021-04-19 17:00] VITALS: BP 130/75; PULSE 67; O2SAT 96
[2021-04-19 17:29] VITALS: BP 109/64; PULSE 67; O2SAT 94
[2021-04-19 18:00] VITALS: BP 129/78; PULSE 64; RESP 12; O2SAT 96
--- NOTE | 2021-04-19 18:05 | HMH.EDFALL ---
ED Disposition Clinical Impression: Near syncope Concussion without loss of consciousness Qualifiers: Encounter type: initial encounter Qualified Code(s): S06.0X0A - Concussion without loss of consciousness, initial encounter Left knee sprain Qualifiers: Encounter type: initial encounter Involved ligament of knee: unspecified ligament Qualified Code(s): S83.92XA - Sprain of unspecified site of left knee, initial encounter Disposition: Home, Self-Care Condition on Discharge: Good Instructions: How to Prevent Falls Referrals: Rafael Pritchett MD [Primary Care Provider] - - Critical Care Critical Care Time: No Attestation: On 04/19/21, the high probability of a clinically significant, sudden or life threatening deterioration of the following system(s) required my full and direct attention, intervention and personal management. The time I documented below is in addition to time spent performing reported procedures but includes the following listed in this critical care notation. Medical Decision Making - Medical Records Medical records reviewed: Yes: I reviewed the patient's medical records. - Thanh Inquiry Pt receiving controlled substance: Yes Thanh was queried for this patient: No Reason not queried -: Thanh login issues Risks and benefits of using a controlled substance: were discussed with pt by me Vital Signs: 04/19/21 15:32 04/19/21 17:00 04/19/21 17:29 Temperature 98.1 F Temperature Source Oral Pulse Rate 67 67 Pulse Rate [Left Radial] 70 Respiratory Rate 18 Blood Pressure 130/75 109/64 L Blood Pressure [Right Arm] 118/82 Blood Pressure Mean [Right Arm] 94 Blood Pressure Source [Right Arm] Automatic Cuff Blood Pressure Position [Right Arm] Sitting 02 Sat by Pulse Oximetry 98 96 94 L Oxygen Delivery Method Room Air - Lab Data Lab Results 04/19/21 15:50: WBC 7.7, RBC 3.75 L, Hgb 12.4, Hct 36.7 L, MCV 97.9, MCH 33.0 H, MCHC 33.7, RDW 13.8, Plt Count 325, MPV 7.9, Neut % (Auto) 64.9, Lymph % (Auto) 26.1, Kane % (Auto) 5.4, Eos % (Auto) 2.7, Baso % (Auto) 0.8, Neut # (Auto) 5.0, Lymph # (Auto) 2.0, Kane # (Auto) 0.4, Eos # (Auto) 0.2, Baso # (Auto) 0.1 04/19/21 15:50: Sodium 136, Potassium 4.3, Chloride 106, Carbon Dioxide 23, Anion Gap 11.3, BUN 21 H, Creatinine 1.20 H, Estimated Creat Clear 49, Estimated GFR 44 L, Est GFR ( Amer) 53 L, Glucose 87, Calcium 9.2, Troponin I < 0.01 Result diagrams: 04/19/21 15:50 04/19/21 15:50 Orders (Tests/Meds): ED MEDICATIONS Discontinued Medications Generic Name Dose Route Start Last Admin Trade Name Freq PRN Reason Stop Dose Admin Morphine Sulfate 4 mg 04/19/21 16:57 04/19/21 17:25 Morphine 4mg/Ml Syringe IV 04/19/21 16:58 4 mg ONCE ONE Administration Ondansetron HCl 4 mg 04/19/21 16:57 04/19/21 17:25 Ondansetron 4mg/2ml Vial IV 04/19/21 16:58 4 mg ONCE ONE Administration ORDERS Category Date Time Status Troponin I Q3H Lab 04/19/21 19:00 Ordered Troponin I Q3H Lab 04/19/21 22:00 Ordered - Radiology Data #1 Image(s): Chest, Shoulder, Elbow, Wrist, Hip, Knee Image Reviewed: Yes I reviewed the patient's radiology results, Yes I reviewed the patient's radiology image, Yes I have reviewed radiologist's interpretation TECHNIQUE: Imaging protocol: XR Left ribs. Views: 2 views. COMPARISON: CR XR CHEST PORTABLE 04/19/2021 4:20 PM FINDINGS: Bones/joints: There is no evidence of acute fracture. Vertebroplasty changes of the thoracic spine noted. Pleural space: There is no evidence of pneumothorax. Soft tissues: There are no soft tissue masses or fluid collections. IMPRESSION: 1. No evidence of acute fracture. 2. There is no evidence of pneumothorax. TECHNIQUE: Imaging protocol: XR Left wrist. Views: 1 or 2 views. COMPARISON: No relevant prior studies available. FINDINGS: Bones/joints: Bones are osteopenic. There is no evidence of acute fracture.
[2021-04-19 19:01] VITALS: BP 129/78; PULSE 64; RESP 12; TEMP 36.7; O2SAT 98
== END 2021-04-19 19:03 | disposition home or self-care (01) ==
PROVIDERS: Emergency Provider Emergency Medicine; PCP Family Medicine
DX: R55 Syncope and collapse (principal); S06.0X0A Concussion without loss of consciousness, initial encounter; S83.92XA Sprain of unspecified site of left knee, initial encounter; W18.39XA Other fall on same level, initial encounter; Y92.019 Unspecified place in single-family (private) house as the place of occurrence of the external cause; I25.10 Atherosclerotic heart disease of native coronary artery without angina pectoris; E78.5 Hyperlipidemia, unspecified; I10 Essential (primary) hypertension; J44.9 Chronic obstructive pulmonary disease, unspecified; F41.8 Other specified anxiety disorders; F17.210 Nicotine dependence, cigarettes, uncomplicated; Z79.899 Other long term (current) drug therapy
CPT/HCPCS: 70450; 71045; 71100; 72125; 73030; 73070; 73100; 73502; 73560; 80048; 84484; 85025; 93005; 96374; 96375; 99283; J2405

== ENCOUNTER → 2021-07-20 18:19 | Outpatient (CLI) | payer MEDICARE, OTHER, SELFPAY ==
[2021-07-20 18:23] LABS: Adenovirus,PCR Not Detected (NotDetected); Bordetella Pertussis Not Detected (NotDetected); Chlamydophila Pneumoniae, PCR Not Detected (NotDetected); Coronavirus 19, PCR Not Detected (NotDetected); Coronavirus 229E Not Detected (NotDetected); Coronavirus NL63 Not Detected (NotDetected); Coronavirus OC43 Not Detected (NotDetected); Coronovirus HKU1,PCR Not Detected (NotDetected); Human Metapneumovirus Not Detected (NotDetected); Influenza A, PCR Not Detected (NotDetected); Influenza AH1, 2009 Not Detected (NotDetected); Influenza AH1, PCR Not Detected (NotDetected); Influenza AH3,PCR Not Detected (NotDetected); Influenza B, PCR Not Detected (NotDetected); Mycoplasma Pneumoniae, PCR Not Detected (NotDetected); Parainfluenza 1, PCR Not Detected (NotDetected); Parainfluenza 2, PCR Not Detected (NotDetected); Parainfluenza 3, PCR Not Detected (NotDetected); Parainfluenza 4, PCR Not Detected (NotDetected); Respiratory Syncytial Virus Not Detected (NotDetected); Rhinovirus/Enterovirus Not Detected (NotDetected)
== END ==
PROVIDERS: Visit Provider Family Medicine
DX: H93.90 Unspecified disorder of ear, unspecified ear (principal); Z20.822 Contact with and (suspected) exposure to COVID-19; R09.89 Other specified symptoms and signs involving the circulatory and respiratory systems; R05.9 Cough, unspecified; J44.9 Chronic obstructive pulmonary disease, unspecified; F17.210 Nicotine dependence, cigarettes, uncomplicated
CPT/HCPCS: 87581; 87632; 87798; C9803; U0003; U0005

== ENCOUNTER → 2022-02-02 16:00 | Outpatient (CLI) | payer MEDICARE, OTHER, SELFPAY ==
[2022-02-02 19:13] LABS: Basophils # 0.1 K/mm3 (0-0.2); Basophils % 1.1 % (0.1-2.0); Eosinophils # 0.3 K/mm3 (0.0-0.4); Eosinophils % 4.4 % (0.1-12.0); Hematocrit 38.7 % (37.0-47.0); Hemoglobin 12.9 g/dL (12.2-16.2); Lymphocytes % 32.4 % (10-50); Mean Corpuscular HGB Conc 33.2 g/dL (31.8-35.4); Mean Corpuscular Hemoglobin 33.8 pg (27.0-31.2); Mean Corpuscular Volume 101.9 fl (81-99); Mean Platelet Volume 7.9 fl (7.4-10.4); Monocytes # 0.5 K/mm3 (0.1-1.0); Monocytes % 7.7 % (1.7-9.3); Neutrophils # 3.3 K/mm3 (1.8-7.8); Neutrophils % 54.3 % (37.0-80.0); Platelet Count 403 K/mm3 (142-424); Red Cell Distribution Width 13.5 % (11.5-17.5); White Blood Count 6.1 K/mm3 (4.8-10.8)
[2022-02-02 19:27] LABS: Alanine Aminotransferase 14 U/L (12-78); Albumin Level 3.8 g/dl (3.5-5.0); Albumin/Globulin Ratio 1.5 (1.1-1.8); Alkaline Phosphatase 107 U/L (38-126); Anion Gap 13.3 mEq/L (5-15); Aspartate Amino Transferase 21 U/L (14-36); Bilirubin,Total 0.5 mg/dl (0.2-1.3); Blood Urea Nitrogen 26 mg/dl (7-17); Calcium 9.1 mg/dl (8.4-10.2); Carbon Dioxide 25 mmol/L (22.0-30.0); Chloride 104 mmol/L (98-107); Estimated Glomerular Filt Rate 37 ml/min (>60); GFR (African American) 45 ML/MIN (>60); Globulin 2.6 g/dL (1.3-3.2); Glucose 115 mg/dl (74-100); Potassium 4.3 mmoL/L (3.5-5.1); Sodium 138 mmol/L (136-145); Total Protein,Serum 6.4 g/dl (6.3-8.2)
[2022-02-02 19:58] LABS: Thyroid Stimulating Hormone 1.59 uIU/mL (0.465-4.68)
== END ==
PROVIDERS: Visit Provider Family Medicine
DX: E87.1 Hypo-osmolality and hyponatremia (principal); R55 Syncope and collapse; R42 Dizziness and giddiness
CPT/HCPCS: 80053; 84443; 85025

== ENCOUNTER → 2022-03-20 08:23 | Outpatient (CLI) | payer MEDICARE, OTHER, SELFPAY ==
[2022-03-19 18:08] LABS: Adenovirus,PCR Not Detected (NotDetected); Bordetella Pertussis Not Detected (NotDetected); Chlamydophila Pneumoniae, PCR Not Detected (NotDetected); Coronavirus 19, PCR Not Detected (NotDetected); Coronavirus 229E Not Detected (NotDetected); Coronavirus NL63 Not Detected (NotDetected); Coronavirus OC43 Not Detected (NotDetected); Coronovirus HKU1,PCR Not Detected (NotDetected); Human Metapneumovirus Not Detected (NotDetected); Influenza A, PCR Not Detected (NotDetected); Influenza AH1, 2009 Not Detected (NotDetected); Influenza AH1, PCR Not Detected (NotDetected); Influenza AH3,PCR Not Detected (NotDetected); Influenza B, PCR Not Detected (NotDetected); Mycoplasma Pneumoniae, PCR Not Detected (NotDetected); Parainfluenza 1, PCR Not Detected (NotDetected); Parainfluenza 2, PCR Not Detected (NotDetected); Parainfluenza 3, PCR Not Detected (NotDetected); Parainfluenza 4, PCR Not Detected (NotDetected); Respiratory Syncytial Virus Not Detected (NotDetected); Rhinovirus/Enterovirus Not Detected (NotDetected)
== END ==
PROVIDERS: PCP Family Medicine; Visit Provider Family Medicine
DX: Z20.822 Contact with and (suspected) exposure to COVID-19 (principal)
CPT/HCPCS: 87581; 87632; 87798; C9803; U0003; U0005

== ENCOUNTER → 2022-05-17 06:49 | Outpatient (CLI) | payer MEDICARE, OTHER, SELFPAY ==
[2022-05-17 20:55] LABS: Barbiturates Screen,Urine Negative ng/ml (<200)
[2022-05-17 20:56] LABS: Benzodiazepines Screen,Urine Negative ng/ml (<200)
[2022-05-17 20:57] LABS: Cannabinoid Screen,Urine Negative ng/ml (<50); Cocaine Screen,Urine Negative ng/ml (<300)
[2022-05-17 20:58] LABS: Methadone Screen,Urine Negative ng/ml (<300)
[2022-05-17 20:59] LABS: Phencyclidine Screen,Urine Negative ng/ml (<25)
[2022-05-17 21:31] LABS: Opiate Screen,Urine Positive ng/ml (<300)
[2022-05-17 21:32] LABS: Amphetamine/Metha Screen,Urine Negative ng/ml (<1000)
== END ==
PROVIDERS: PCP Family Medicine; Visit Provider Family Medicine
DX: G89.29 Other chronic pain (principal)
CPT/HCPCS: 80305

== ENCOUNTER → 2022-10-15 12:28 | Outpatient (CLI) | payer MEDICARE, OTHER, SELFPAY ==
[2022-10-14 19:01] LABS: Amphetamine/Metha Screen,Urine Negative ng/ml (<1000)
[2022-10-14 19:02] LABS: Barbiturates Screen,Urine Negative ng/ml (<200)
[2022-10-14 19:03] LABS: Benzodiazepines Screen,Urine Negative ng/ml (<200); Cannabinoid Screen,Urine Negative ng/ml (<50)
[2022-10-14 19:04] LABS: Cocaine Screen,Urine Negative ng/ml (<300)
[2022-10-14 19:05] LABS: Methadone Screen,Urine Negative ng/ml (<300); Opiate Screen,Urine Positive ng/ml (<300)
[2022-10-14 19:07] LABS: Phencyclidine Screen,Urine Negative ng/ml (<25)
== END ==
PROVIDERS: PCP Family Medicine; Visit Provider Family Medicine
DX: G89.4 Chronic pain syndrome (principal)
CPT/HCPCS: 80305

== ENCOUNTER → 2023-01-13 23:17 | Outpatient (CLI) | payer MEDICARE, OTHER, SELFPAY ==
[2023-01-13 17:56] LABS: Basophils # 0.1 K/mm3 (0-0.2); Basophils % 0.5 % (0.1-2.0); Eosinophils # 0.4 K/mm3 (0.0-0.4); Eosinophils % 3.7 % (0.1-12.0); Hemoglobin 13.6 g/dL (12.2-16.2); Lymphocytes # 2.7 K/mm3 (0.7-4.5); Mean Corpuscular HGB Conc 32.3 g/dL (31.8-35.4); Mean Corpuscular Hemoglobin 32.6 pg (27.0-31.2); Mean Corpuscular Volume 101.1 fl (81-99); Mean Platelet Volume 8.1 fl (7.4-10.4); Monocytes # 0.6 K/mm3 (0.1-1.0); Monocytes % 5.9 % (1.7-9.3); Neutrophils # 6.3 K/mm3 (1.8-7.8); Neutrophils % 62.9 % (37.0-80.0); Platelet Count 421 K/mm3 (142-424); Red Blood Count 4.16 M/mm3 (4.20-5.40); Red Cell Distribution Width 13.2 % (11.5-17.5)
[2023-01-13 18:16] LABS: Chloride 100 mmol/L (98-107); Potassium 5.1 mmoL/L (3.5-5.1); Sodium 135 mmol/L (136-145)
[2023-01-13 18:18] LABS: Alanine Aminotransferase 15 U/L (12-78); Aspartate Amino Transferase 26 U/L (14-36); Blood Urea Nitrogen 24 mg/dl (7-17); Estimated Glomerular Filt Rate 44 ml/min (>60); GFR (African American) 53 ML/MIN (>60)
[2023-01-13 18:19] LABS: Albumin Level 4.1 g/dl (3.5-5.0); Albumin/Globulin Ratio 1.2 (1.1-1.8); Alkaline Phosphatase 155 U/L (38-126); Anion Gap 17.1 mEq/L (5-15); Bilirubin,Total 0.6 mg/dl (0.2-1.3); Calcium 9.1 mg/dl (8.4-10.2); Carbon Dioxide 23 mmol/L (22.0-30.0); Globulin 3.3 g/dL (1.3-3.2); Glucose 88 mg/dl (74-100); Total Protein,Serum 7.4 g/dl (6.3-8.2)
== END ==
PROVIDERS: PCP Family Medicine; Visit Provider Family Medicine
DX: E87.1 Hypo-osmolality and hyponatremia (principal); R79.89 Other specified abnormal findings of blood chemistry
CPT/HCPCS: 80053; 85025

== ENCOUNTER → 2023-01-25 12:52 | Outpatient (CLI) | payer MEDICARE, OTHER, SELFPAY ==
--- NOTE | 2023-01-25 12:52 | MR_ITS ---
FINAL REPORT CLINICAL HISTORY: compression fracture per patient she hears crunching when she moves FINDINGS: Multiplanar MR imaging of the thoracic spine was performed without contrast. On the sagittal T2-weighted images, disc degeneration is is seen throughout the thoracic discs. There is a compression deformity of T5 measuring about 70%. There is a kyphoplasty deformity at T7 with a compression deformity measuring about 20%. There is accentuation of thoracic kyphosis. No bony mass is identified. The thoracic spinal cord has an unremarkable appearance without evidence of mass, edema or syrinx. There is no evidence of canal stenosis or cord compression. On the axial images, there is a mild diffuse disc bulge at T5-6 with mild bilateral neural foraminal narrowing. There is no evidence of significant canal stenosis. No paraspinous soft tissue abnormality is seen. IMPRESSION: Compression deformities at T5 and T7 with prior kyphoplasty at T7. No marrow edema. Mild diffuse disc bulge at T5-6 with mild bilateral neural foraminal narrowing. Reviewed, Interpreted and Dictated by Garcia Gracia MD Transcribed by Fabi Hawley Authenticated and [facility]
== END ==
PROVIDERS: PCP Family Medicine; Visit Provider Family Medicine
DX: S22.000A Wedge compression fracture of unspecified thoracic vertebra, initial encounter for closed fracture (principal); M54.6 Pain in thoracic spine
CPT/HCPCS: 72146

== ENCOUNTER → 2023-01-28 11:48 | Outpatient (POV) | payer MEDICARE, OTHER, SELFPAY ==
[2023-01-28 12:32] VITALS: BP 122/78; PULSE 70; RESP 18; O2SAT 98; BMI 25.2
--- NOTE | 2023-01-28 13:05 | EXP.PAIN.OV ---
[facility] Data of Consult Patient: new to practice Consult date: 01/28/23 Requesting Physician: Nikki Love APRN Primary Care Provider: Rafael Pritchett MD Consult Narrative Reason for consult: Mid back pain, neck pain History of present illness: Ms. Arguelles is a 72 year old female who presents today as a new patient. She is a referral from Reece Pritchett's office. Today she rates her pain a 6 out of 10. Patient states her pain is all in her mid back with radiating symptoms up into her neck and shoulder blades. Patient states that she has not had a recent injury or fall however she was having increased pain and they did additional imaging that did show a new compression fracture. Patient states she does previously have a prior kyphoplasty done at T7. She does describe her pain as a constant sharp sensation that is worse with increased activity. Patient does state it interferes with her ability to perform activities of daily living such as cooking and cleaning. Patient does live with several people and frequently provides preparation for the meals and she has not been able to help do any of this lately. Patient does have significant osteoporosis. Patient states she has tried [id number] medications along with heat and ice and topicals however she has not gotten any additional relief. She is currently prescribed [place] 7.5 mg 3 times a day from her primary care doctor and lorazepam 1 mg. Patient denies any side effects from this medication. She states she frequently takes the [place] with additional Tylenol to get better relief. Patient does state that she has a significant allergy to steroids. She states that prednisone in the past caused eye and mouth swelling. Her Thanh is [id number]. Its been reviewed and appropriate. CC: Nikki Love APRN [facility] Disclaimer: The information contained in this section may have been updated after the patient was seen, as this information can be updated by other users. Medical History Arthritis History of stroke in adulthood Hyperlipidemia Social History (Updated 01/28/23 @ 12:36 by Meg Mcbride RN) Smoking Status: Current every day smoker tobacco type: cigarettes packs per day: 1 alcohol intake: current substance use type: denies use current occupational status: retired Travel in the last 8 weeks: None household members: spouse housing: other caffeine: Yes Review of Systems Review of Systems Review of systems:: pertinent systems reviewed and negative unless documented below Review of systems (narrative): Review of Systems: General: No recent weight changes, no fever, no sleep disturbances Respiratory: No cough, no shortness of air, no recurring pulmonary infections Cardiovascular/peripheral vascular: No chest pain, no palpitations, no edema, no shortness of breath Gastrointestinal: No new onset incontinence, normal bowel movements reported Genitourinary: No new onset incontinence Musculoskeletal: Mid back pain, neck pain Psychiatric: [Normal mood/affect] Neurological: [Denies weakness in extremities], [denies balance issues] Meds Home Medications and Allergies Home Medications Medication Instructions Recorded Confirmed Type aspirin 81 mg tablet,delayed 81 mg PO DAILY CAD 03/25/20 01/28/23 History release (Adult Aspirin Regimen) albuterol sulfate 90 mcg/actuation 2 puff inhalation Q4-6H PRN 10/14/22 01/28/23 Rx aerosol inhaler (Ventolin HFA) shortness of breath or wheezing #8.5 grams hydrocodone 7.5 mg-acetaminophen 1 tab PO Q8H PRN Moderate Pain #90 01/13/23 01/28/23 Rx 325 mg tablet tabs atorvastatin 40 mg tablet See Rx Instructions .Route 01/28/23 01/28/23 History .COMPLEX Cholesterol clopidogrel 75 mg tablet See Rx Instructions .Route 01/28/23 01/28/23 History .COMPLEX Blood thinner clotrimazole 1 % topical cream 1 applic topical TID Skin condition 01/28/23 01/28/23 History (Lotrimin AF
== END | disposition home or self-care (01) ==
PROVIDERS: PCP Family Medicine; Visit Provider Nurse Practitioner Family
DX: M51.14 Intervertebral disc disorders with radiculopathy, thoracic region (principal); M50.10 Cervical disc disorder with radiculopathy, unspecified cervical region; S22.050A Wedge compression fracture of T5-T6 vertebra, initial encounter for closed fracture; G89.29 Other chronic pain
CPT/HCPCS: 99202; G0463

== ENCOUNTER → 2023-03-07 15:14 | Outpatient (POV) | payer MEDICARE, OTHER, SELFPAY ==
--- NOTE | 2023-03-07 15:26 | EXP.PAIN.SOA ---
[facility] Pain Management SOAP Note Subjective:: Patient is a pleasant 72-year-old female who presents today for follow-up. We are currently treating the patient for degenerative disc disease of cervical and thoracic spine with cervical and thoracic radiculopathy symptoms, chronic compression fracture at T7, chronic pain syndrome, acute compression fracture of T5. Today she rates her pain a 10 out of 10.? From our last visit patient was referred to Dr. Baltazar's office in [place] for possible kyphoplasty intervention. She states today that she does have an appointment scheduled with them on the of this month. Patient states that the compounding cream she was prescribed irritated her skin and she has since discontinued it. Patient was also prescribed methocarbamol 500 mg 3 times a day. She states that this has helped some of her pain symptoms. Patient continues to wear her back brace however she states that will occasionally bother her ribs. Patient denies any new trauma or injury. Patient denies any change location or type of pain she experiences. She states her pain is all still at her mid back with radiating symptoms up into her neck and shoulder blades. The recent compression fracture is unrelated to any fall.? She does previously have a prior kyphoplasty done at T7.? She does describe her pain as a constant sharp sensation that is worse with increased activity and it does interferes with her ability to perform activities of daily living such as cooking and cleaning.?She is currently prescribed [place] 7.5 mg 3 times a day from her primary care doctor and lorazepam 1 mg.? Patient denies any side effects from this medication.? She does continue to use Tylenol in addition as needed. She does have a history of allergy to steroids. Her Thanh is [id number]. Its been reviewed and appropriate. Review of Systems: General: No recent weight changes, no fever, no sleep disturbances Respiratory: No cough, no shortness of air, no recurring pulmonary infections Cardiovascular/peripheral vascular: No chest pain, no palpitations, no edema, no shortness of breath Gastrointestinal: No new onset incontinence, normal bowel movements reported Genitourinary: No new onset incontinence Musculoskeletal: Mid back pain Psychiatric: [Normal mood/affect] Neurological: [Denies weakness in extremities], [denies balance issues] Objective:: Physical Exam: General: Alert and oriented x3, no acute distress, pleasant and cooperative Lungs: Respirations even and unlabored, symmetrical chest expansion Eyes: PERRL Musculoskeletal: Flexion and extension of thoracic [spine] somewhat guarded secondary to pain, [antalgic gait noted] Neurological: Speech clear, no gross sensory deficit Assessment:: Degenerative disc disease of cervical and thoracic spine with cervical and thoracic radiculopathy symptoms, chronic compression fracture at T7, acute compression fracture of T5, chronic pain syndrome Plan:: Patient continues to experience significant pain in her mid back related to an acute compression fracture. I have discussed with the patient that she may benefit from thoracic epidural however at this time she is not interested. I will increase her methocarbamol to 1000 mg 3 times daily and provide a 2-month supply of this medication. Patient will contact our office with any questions or concerns before her next appointment date. Patient will return to clinic in 6 weeks for reevaluation of symptoms, medication refill and follow-up. Dr. Rice has reviewed this note and agrees with this plan of care. This note was dictated using voice recognition software and make contain errors or omissions. [facility] Disclaimer: The information contained in this section may have been updated after the patient was seen, as this information can be updated by other users. Medical History Arthritis History of stroke in adulthood Hyperlipidemia Social H
[2023-03-07 15:34] VITALS: BP 134/74; PULSE 68; RESP 18; O2SAT 97; BMI 24.3
== END | disposition home or self-care (01) ==
PROVIDERS: PCP Family Medicine; Visit Provider Nurse Practitioner Family
DX: M50.10 Cervical disc disorder with radiculopathy, unspecified cervical region (principal); M51.14 Intervertebral disc disorders with radiculopathy, thoracic region; S22.050D Wedge compression fracture of T5-T6 vertebra, subsequent encounter for fracture with routine healing; G89.4 Chronic pain syndrome
CPT/HCPCS: 99212; G0463

== ENCOUNTER → 2023-04-18 11:57 | Outpatient (CLI) | payer MEDICARE, OTHER, SELFPAY ==
--- NOTE | 2023-04-18 11:57 | CT_ITS ---
FINAL REPORT TECHNIQUE: Axial CT with contrast with 3-D MIP reconstruction CLINICAL HISTORY: Chest pain COMPARISON: None FINDINGS: Pulmonary vessels enhance in normal fashion without evidence of embolism. Thoracic aorta shows no dissection or aneurysm. No pulmonary mass or infiltrate is present. There is no significant pleural effusion. There is no significant pericardial effusion. No mediastinal or hilar adenopathy is present. There are three levels of mid thoracic compression fractures, one of which is post kyphoplasty. IMPRESSION: No acute abnormality identified. Reviewed, Interpreted and Dictated by Cassandra Gillis MD Transcribed by Anastacia Hooker Authenticated and [facility]
[2023-04-18 12:28] LABS: Blood Urea Nitrogen 24 mg/dl (7-17); Estimated Glomerular Filt Rate 49 ml/min (>60); GFR (African American) 59 ML/MIN (>60)
== END ==
PROVIDERS: PCP Family Medicine; Visit Provider Family Medicine
DX: R07.9 Chest pain, unspecified (principal)
CPT/HCPCS: 36415; 71260; 82565; 84520; Q9967

== ENCOUNTER → 2023-05-11 12:49 | Outpatient (POV) | payer MEDICARE, OTHER, SELFPAY ==
[2023-05-11 13:01] VITALS: BP 120/72; PULSE 61; RESP 18; O2SAT 96; BMI 24.6
--- NOTE | 2023-05-11 13:10 | EXP.PAIN.SOA ---
[facility] Pain Management SOAP Note Subjective:: Patient is a pleasant 73-year-old female who presents today for follow-up. We are currently treating the patient for degenerative disc disease of cervical and lumbar spine with cervical and lumbar radiculopathy symptoms, chronic compression fracture at T7, chronic pain syndrome, acute compression fracture of T5. Today she rates her pain a 10 out of 10. Patient denies any new trauma or injury or any change to location or type of pain that she experiences. Patient states that she was in the hospital last month for pneumonia and that due to this she had to cancel her appointment at Dr. Carter's office. Patient was sent there for referral for possible surgical intervention for a kyphoplasty due to her acute compression fracture of T5. Today she states that she is planning on calling them back and trying to reschedule her appointment. Patient states that her back brace has been more irritating than helpful. She states she feels like she cannot breathe in it. Patient was prescribed methocarbamol 500 mg 3 times a day in the past. She is also prescribed [place] 7.5 mg 3 times a day and lorazepam 1 mg twice a day from her primary care doctor. Patient does state that this helps take the edge off. her Thanh has been reviewed and is appropriate. Review of Systems: General: No recent weight changes, no fever, no sleep disturbances Respiratory: No cough, no shortness of air, no recurring pulmonary infections Cardiovascular/peripheral vascular: No chest pain, no palpitations, no edema, no shortness of breath Gastrointestinal: No new onset incontinence, normal bowel movements reported Genitourinary: No new onset incontinence Musculoskeletal: Mid back pain Psychiatric: [Normal mood/affect] Neurological: [Denies weakness in extremities], [denies balance issues] Objective:: Physical Exam: General: Alert and oriented x3, no acute distress, pleasant and cooperative Lungs: Respirations even and unlabored, symmetrical chest expansion Eyes: PERRL Musculoskeletal: Flexion and extension of thoracic [spine] somewhat guarded secondary to pain, [antalgic gait noted] Neurological: Speech clear, no gross sensory deficit Assessment:: Degenerative disc disease of cervical and lumbar spine with cervical and lumbar radiculopathy symptoms, chronic compression fracture at T7, chronic pain syndrome, acute compression fracture of T5 Plan:: Patient continues to experience significant pain in her mid back with radiating symptoms. I have highly recommended that she contact Dr. Carter's office as soon as possible to see about getting in for possible kyphoplasty intervention. I have explained that this is a time sensitive procedure. I have also discussed with the patient that she may benefit from thoracic epidurals at the side of her compression fracture however she previously had a lumbar epidural that did not provide significant relief and at this time she is not interested in injections. I will refill her methocarbamol 500 mg 3 times daily and provide a 1 month supply of this medication. Patient was also counseled to discuss with her PCP that she needs to be on a osteoporosis medication due to the extent of her osteoporosis to minimize further fracture risk. Patient will return to clinic in 1 month for reevaluation of symptoms and plan of care. Patient has been instructed to contact the clinic with any concerns before the next appointment. Dr. Rice has reviewed this note and agrees with this plan of care. This note was dictated using voice recognition software and make contain errors or omissions. [facility] Disclaimer: The information contained in this section may have been updated after the patient was seen, as this information can be updated by other users. Medical History Arthritis History of stroke in adulthood Hyperlipidemia Social History (Reviewed 04/08/23 @ 13:51 by Sita Rodas
== END ==
PROVIDERS: PCP Family Medicine; Visit Provider Nurse Practitioner Family
DX: M50.10 Cervical disc disorder with radiculopathy, unspecified cervical region (principal); M51.16 Intervertebral disc disorders with radiculopathy, lumbar region; M84.48XS Pathological fracture, other site, sequela; G89.4 Chronic pain syndrome; S22.050D Wedge compression fracture of T5-T6 vertebra, subsequent encounter for fracture with routine healing
CPT/HCPCS: 99212; G0463

== ENCOUNTER → 2023-06-08 13:49 | Outpatient (POV) | payer MEDICARE, OTHER, SELFPAY ==
--- NOTE | 2023-06-08 14:14 | EXP.PAIN.SOA ---
[facility] Pain Management SOAP Note Subjective:: Patient is a pleasant 73-year-old female who presents today for follow-up. We are currently treating the patient for degenerative disc disease of cervical and lumbar spine with cervical and lumbar radiculopathy symptoms, chronic compression fracture at T7, chronic pain syndrome, acute compression fracture at T5. Today she rates her pain a 9 out of 10. Patient denies any new trauma or injury. Patient denies any change to location or type of pain she experiences. From our last visit she does state that she has not rescheduled her appointment with Dr. Carter's office. Patient states she is planning on calling and getting this appointment May. Patient also states that she has not discussed the osteoporosis medication with her primary care provider. Patient does state that she is unable to tolerate any steroids due to previous reaction of lip swelling and trouble with her airway. Patient is currently managed with methocarbamol 500 mg 3 times a day however she states that she has not noticed it working as well as it initially did. Patient was also prescribed [place] 7.5 mg 3 times a day and lorazepam 1 mg twice a day from her primary care provider. Her Thanh is [id number]. Its been reviewed and appropriate. Review of Systems: General: No recent weight changes, no fever, no sleep disturbances Respiratory: No cough, no shortness of air, no recurring pulmonary infections Cardiovascular/peripheral vascular: No chest pain, no palpitations, no edema, no shortness of breath Gastrointestinal: No new onset incontinence, normal bowel movements reported Genitourinary: No new onset incontinence Musculoskeletal: Mid back pain, neck pain Psychiatric: [Normal mood/affect] Neurological: [Denies weakness in extremities], [denies balance issues] Objective:: Physical Exam: General: Alert and oriented x3, no acute distress, pleasant and cooperative Lungs: Respirations even and unlabored, symmetrical chest expansion Eyes: PERRL Musculoskeletal: Flexion and extension of thoracic [spine] somewhat guarded secondary to pain, [antalgic gait noted] point tenderness noted along cervical paraspinous muscles and bilateral trapezius muscles Neurological: Speech clear, no gross sensory deficit Assessment:: Degenerative disc disease of cervical and lumbar spine with cervical and lumbar radiculopathy symptoms, chronic compression fracture at T7, chronic pain syndrome, acute compression fracture of T5, myofascial pain of bilateral cervical paraspinous muscles and bilateral trapezius muscles Plan:: Patient continues to experience significant pain in multiple areas including her neck and mid back. I have counseled the patient that due to her allergy to prednisone we could always do injections with just numbing medication however it would be very limited how long the relief lasts. I have counseled the patient that I do highly recommend her still making her follow-up appointment with Dr. Carter's office as well as talking to her primary care doctor regarding starting her on a osteoporosis medication. I will increase her methocarbamol to 750 mg 3 times daily and provide a 1 month supply of this medication. Patient will return to clinic in 1 month for reevaluation of symptoms and plan of care. Patient has been instructed to contact the clinic with any concerns before the next appointment. Dr. Rice has reviewed this note and agrees with this plan of care. This note was dictated using voice recognition software and make contain errors or omissions. [facility] Disclaimer: The information contained in this section may have been updated after the patient was seen, as this information can be updated by other users. Medical History Arthritis History of stroke in adulthood Hyperlipidemia Social History Smoking Status: Current every day smoker tobacco type: cig
[2023-06-08 14:33] VITALS: BP 124/70; PULSE 67; RESP 18; O2SAT 95; BMI 24.6
== END | disposition home or self-care (01) ==
PROVIDERS: PCP Family Medicine; Visit Provider Nurse Practitioner Family
DX: M50.10 Cervical disc disorder with radiculopathy, unspecified cervical region (principal); M51.16 Intervertebral disc disorders with radiculopathy, lumbar region; M84.48XS Pathological fracture, other site, sequela; G89.4 Chronic pain syndrome; M79.18 Myalgia, other site
CPT/HCPCS: 99212; G0463

== ENCOUNTER → 2023-06-23 14:44 | Outpatient (CLI) | payer MEDICARE, OTHER, SELFPAY ==
--- NOTE | 2023-06-23 14:45 | MR_ITS ---
FINAL REPORT TECHNIQUE: Multiplanar and multisequence imaging of the lumbar spine was obtained without contrast. CLINICAL HISTORY: low back pain. left leg tingling when sitting FINDINGS: There is normal alignment of the lumbar vertebral bodies. Vertebral body height is preserved. The spinal cord ends at the level of L1. There is normal signal intensity within the substance of the distal spinal cord. There are degenerative marrow changes. No acute bone marrow edema or pathologic marrow replacement. No acute paraspinal abnormality is identified. Bilateral renal cysts are identified. L1-2: There is no focal disc herniation, central canal stenosis or neuroforaminal narrowing. L2-3: There is no focal disc herniation, central canal stenosis or neuroforaminal narrowing. L3-4: An annular disc bulge is present with degenerative endplate changes and facet osteoarthropathy. There is mild central stenosis. There is moderate left neural foraminal narrowing. L4-5: An annular disc bulge is present with degenerative endplate changes and facet osteoarthropathy. There is mild to moderate central stenosis with [id number] bilateral neural foraminal narrowing. L5-S1: An annular disc bulge is present with degenerative endplate changes and facet osteoarthropathy. There is a left paracentral disc protrusion with moderate to severe bilateral neural foraminal narrowing. IMPRESSION: Multilevel degenerative disc disease, most pronounced at L5-S1. Left paracentral disc protrusion at L5-S1. Reviewed, Interpreted and Dictated by Geno Barrios MD Transcribed by Marisela Torres Authenticated and [facility]
== END ==
PROVIDERS: PCP Family Medicine; Visit Provider Family Medicine
DX: M54.16 Radiculopathy, lumbar region (principal); M54.50 Low back pain, unspecified
CPT/HCPCS: 72148; 76376

== ENCOUNTER → 2023-07-08 13:02 | Outpatient (POV) | payer MEDICARE, OTHER, SELFPAY ==
[2023-07-08 13:30] VITALS: BP 106/68; PULSE 61; RESP 20; BMI 25.0
--- NOTE | 2023-07-08 13:46 | A.OFFVIS_ITS ---
[facility] Pain Management SOAP Note Subjective:: This patient is a pleasant 73-year-old female comes our clinic today for follow- up visit and Robaxin 500 mg 1 p.o. 3 times daily refill. We see the patient regarding degenerative disc disease lumbar spine. Lumbar radiculopathy degenerative disc disease cervical spine with cervical radiculopathy. Chronic compression fracture T7. Chronic pain syndrome. Acute compression fracture at T5. Patient rates her pain today 10/10. Patient reports she has spine surgery consultation at the [facility] within the next 30 days. Lumbar MRI shows degenerative disc lumbar spine multiple levels. Lumbar disc bulge multilevel lumbar spine. Lumbar spondylosis. Multilevel lumbar spondylosis. Patient unable to take any type of steroid injection secondary to anaphylaxis. Patient taking lorazepam 1 mg 1 p.o. 1 to 2/day also hydrocodone 5 mg 1 p.o. 3 times daily. Both of these medications come from her PCP. Her Thanh #[id number] been reviewed and appropriate. Objective:: Patient is awake alert [place] x3. No acute distress. Flexion-extension lumbar spine guarded secondary to pain. Flexion-extension cervical spine somewhat guarded secondary to pain. Motor strength upper and lower extremities normal. There is no gross sensory deficit. Gait is normal. Assessment:: Degenerative disc lumbar spine multilevels. Lumbar radiculopathy. Degenerative disc cervical spine multilevels. Cervical radiculopathy chronic compression fracture at T7. Chronic acute fracture at T5. Plan:: I will refill the patient's Robaxin 500 mg 1 p.o. 3 times daily. I will give her 2 refills. She will return to clinic in 3 months. [facility] Disclaimer: The information contained in this section may have been updated after the patient was seen, as this information can be updated by other users. Medical History Arthritis History of stroke in adulthood Hyperlipidemia Social History Smoking Status: Current every day smoker tobacco type: cigarettes packs per day: 1 alcohol intake: current substance use type: denies use current occupational status: retired Travel in the last 8 weeks: None household members: spouse housing: other caffeine: Yes
== END ==
PROVIDERS: Visit Provider Nurse Anesthetist, Certified Registered
DX: M51.16 Intervertebral disc disorders with radiculopathy, lumbar region (principal); M50.10 Cervical disc disorder with radiculopathy, unspecified cervical region; M84.48XS Pathological fracture, other site, sequela
CPT/HCPCS: 99212; G0463

== ENCOUNTER → 2023-08-04 23:35 | Outpatient (CLI) | payer MEDICARE, SELFPAY ==
[2023-08-04 21:31] LABS: Basophils # 0.1 K/mm3 (0-0.2); Basophils % 0.7 % (0.1-2.0); Eosinophils # 0.3 K/mm3 (0.0-0.4); Hemoglobin 13.9 g/dL (12.2-16.2); Lymphocytes # 2.5 K/mm3 (0.7-4.5); Lymphocytes % 32.9 % (10-50); Mean Corpuscular HGB Conc 33.9 g/dL (31.8-35.4); Mean Corpuscular Hemoglobin 34.6 pg (27.0-31.2); Mean Platelet Volume 8.1 fl (7.4-10.4); Monocytes # 0.4 K/mm3 (0.1-1.0); Monocytes % 5.7 % (1.7-9.3); Neutrophils # 4.2 K/mm3 (1.8-7.8); Neutrophils % 56.7 % (37.0-80.0); Platelet Count 394 K/mm3 (142-424); Red Blood Count 4.02 M/mm3 (4.20-5.40); Red Cell Distribution Width 13.3 % (11.5-17.5); White Blood Count 7.4 K/mm3 (4.8-10.8)
[2023-08-04 21:56] LABS: Alanine Aminotransferase 16 U/L (12-78); Albumin Level 4.1 g/dl (3.5-5.0); Albumin/Globulin Ratio 1.3 (1.1-1.8); Alkaline Phosphatase 132 U/L (38-126); Anion Gap 14.7 mEq/L (5-15); Aspartate Amino Transferase 26 U/L (14-36); Bilirubin,Total 0.5 mg/dl (0.2-1.3); Blood Urea Nitrogen 19 mg/dl (7-17); Calcium 9.4 mg/dl (8.4-10.2); Carbon Dioxide 26 mmol/L (22.0-30.0); Chloride 102 mmol/L (98-107); Chol/HDL Ratio 3.6 (1-3.5); Cholesterol 179 mg/dl (140-200); Estimated Glomerular Filt Rate 40 ml/min (>60); GFR (African American) 48 ML/MIN (>60); Globulin 3.2 g/dL (1.3-3.2); Glucose 92 mg/dl (74-100); HDL Cholesterol 50 mg/dl (40-60); Potassium 4.7 mmoL/L (3.5-5.1); Sodium 138 mmol/L (136-145); Total Protein,Serum 7.3 g/dl (6.3-8.2); Triglycerides 180 mg/dl (30-150); VLDL Cholesterol 36 mg/dL (0-40)
[2023-08-04 22:08] LABS: Direct LDL Cholesterol 87.66 mg/dL (100-129)
[2023-08-04 22:26] LABS: Thyroid Stimulating Hormone 1.65 uIU/mL (0.465-4.68)
== END ==
PROVIDERS: PCP Family Medicine; Visit Provider Family Medicine
DX: H92.09 Otalgia, unspecified ear (principal); E78.5 Hyperlipidemia, unspecified
CPT/HCPCS: 80053; 80061; 84443; 85025

== ENCOUNTER → 2023-09-02 09:07 | Outpatient (CLI) | payer MEDICARE, SELFPAY ==
[2023-09-02 23:19] LABS: Amphetamine/Metha Screen,Urine Negative ng/ml (<1000); Barbiturates Screen,Urine Negative ng/ml (<200)
[2023-09-02 23:20] LABS: Benzodiazepines Screen,Urine Negative ng/ml (<200)
[2023-09-02 23:21] LABS: Cannabinoid Screen,Urine Negative ng/ml (<50); Cocaine Screen,Urine Negative ng/ml (<300)
[2023-09-02 23:22] LABS: Methadone Screen,Urine Negative ng/ml (<300)
[2023-09-02 23:23] LABS: Opiate Screen,Urine Positive ng/ml (<300); Phencyclidine Screen,Urine Negative ng/ml (<25)
== END ==
PROVIDERS: PCP Family Medicine; Visit Provider Family Medicine
DX: G89.4 Chronic pain syndrome (principal)
CPT/HCPCS: 80305

== ENCOUNTER 2024-01-16 11:41 | Outpatient (CLI) | payer MEDICARE, OTHER, SELFPAY ==
--- NOTE | 2024-01-16 | CA_ITS ---
APPROVED REPORT Exam: Pharmacologic Technologist: Lisbet Luther Ht: 5 ft 5 in Wt: 150 lbs BSA: 1.75 m2 HR: 71 bpm BP: 141/77 mmHg Indications: Chest pain Medical History Medications: Lorazepam,,,,, Omeprazole,,,,, Hydralazine,,,,, Aspirin,,,,, Losartan,,,,, Atorvastatin,,,,, Ropinirole,,,,, Albuterol,,,,, CloPIdogrel,,,,, Fluoxetine,,,,, Nitroglycerin,,,,, DilTiazem,,,,, Stress Test Details Test: LEXISCAN HR Resting HR: 69 bpm Max Heart Rate (APMHR): 146 bpm Max HR Achieved: 96 bpm Target HR (85% APMHR): 124 bpm % of APMHR: 66 Recovery HR: 74 bpm BP Resting BP: 141.0/77.0 mmHg Max BP: 148.0/76.0 mmHg Recovery BP: 140.0/71.0 mmHg ECG Clinical Exercise duration: 04:00 min Highest Stage Achieved: Exercise capacity: 1.0 METs Stress ECG Conclusion Symptoms: None Arrhythmias/Ectopy: None ST-T Changes: No significant ST changes Conclusion: Unremarkable Lexiscan stress test. Myoview images reported separately. Test Summary REST . . . . . . . Resting REST 16:00 . . 69 . 141/ 77 . . Stage 1 . . . . . . . Myoview Injected Stage 1 01:00 . . 82 . . . . Stage 2 01:00 . . 93 . 141/ 81 . . Stage 3 01:00 . . 89 . 142/ 71 . . Stage 4 01:00 . . 83 . 142/ 79 . Stop exercise at 04:00 RECOVERY 01:00 . . 77 . 148/ 76 . . RECOVERY 02:00 . . 77 . 148/ 76 . . RECOVERY 03:00 . . 76 . 140/ 71 . . RECOVERY 03:36 . . 74 . 140/ 71 . . Electronically signed by : Pham Rascon MD 01/17/2024 13:19:23
--- NOTE | 2024-01-16 11:42 | NM_ITS ---
APPROVED REPORT Exam: Nuclear Stress Test Indication: chest pain..soa..palpitatins..syncope..fatigue Patient Location: Outpatient Stress Tech: Lisbet Luther [place] Tech:Luz Elena Rangel, ARRT, RT (R)(N) Ht: 5 ft 5 in Wt: 148 lbs Bra Size: d HR: 71 bpm BP: 141/77 mmHg BSA: 1.74 m2 TID: 1.36 BMI: 24.6 History: chest pain..soa..palpitatins..syncope..fatigue Procedure: Patient received 0.4 mg of intravenous Lexiscan, resting heart rate 71 bpm, resting blood pressure 141/77 mmHg, with Lexiscan maximum heart rate achieved was 90 bpm which is 85 % of the maximum predicted heart rate and blood pressure was 142/79 mmHg. With Lexiscan, patient denied any complaint of chest pain. Cardiac Stress and Resting SPECT Images: Cardiac Stress and Resting SPECT images were obtained using technetium 99m Myoview 31.6 mCi stress and 10.56 mCi at rest. Resting and stress imaging in supine and prone positions demonstrate no evidence of focal fixed or reversible perfusion defects. There is increased transient ischemic dilatation ratio (TID 1.36), suggestive of possible multivessel disease or balanced ischemia. Gated imaging demonstrates normal global and regional LV systolic function. LVEF is calculated at 64%. Conclusion: No evidence of focal fixed or reversible perfusion defects. There is increased transient ischemic dilatation ratio (TID 1.36), suggestive of possible multivessel disease or balanced ischemia. Gated imaging demonstrates normal global and regional LV systolic function. LVEF is calculated at 64%. Electronically signed by : Pham Rascon MD 01/17/2024 13:20:53
--- NOTE | 2024-01-16 12:44 | CA_ITS ---
FINAL REPORT TECHNIQUE: Color Doppler, duplex Doppler and burnett scale sonography of the bilateral neck vasculature was performed. Velocities were measured in the carotid arteries. Stenosis evaluation based on velocity criteria. CLINICAL HISTORY: HX CVA,DIZZINESS,HTN,HLD,SMOKER,MILY COMPARISON: None FINDINGS: The peak systolic velocity of the right common carotid artery is 67 cm/sec and internal carotid artery 77 cm/sec. The diastolic velocity in the internal carotid artery is 21 cm/sec. The ICA/CCA ratio is 1.4. Visually, a small amount of plaque is seen. These findings are consistent with less than 50% stenosis. The external carotid artery is patent. The right vertebral artery is patent with antegrade flow. The peak systolic velocity of the left common carotid artery is 69 cm/sec and internal carotid artery 94 cm/sec. The diastolic velocity in the internal carotid artery is 30 cm/sec. The ICA/CCA ratio is 1.4. Visually, a small to moderate amount of plaque is seen. These findings are consistent with less than 50% stenosis. The external carotid artery is patent. The left vertebral artery is patent with antegrade flow. IMPRESSION: No evidence of significant carotid stenosis with mild plaque in the right carotid, and mild to moderate plaque in the left carotid. Bilateral patent vertebral arteries. If indicated, CTA or MRA could further evaluate. Reviewed, Interpreted and Dictated by Garcia Gracia MD Transcribed by Anastacia Hooker Authenticated and [facility]
[2024-01-16] MEDS: ISOTOPE MYOVIEW (PER STUDY) 1 DOSE IV (13:28)
[2024-01-16] MEDS: REGADENOSON 0.4MG/5ML SYRINGE 0.400000000000000022 MG IV (13:28)
[2024-01-16] MEDS: SODIUM CHLORIDE 0.9% 10ML SYR (RAD ONLY) 10 ML IV ×2 (13:28)
== END 2024-01-16 23:59 | disposition home or self-care (01) ==
PROVIDERS: PCP Family Medicine; Visit Provider Family Medicine
DX: R07.9 Chest pain, unspecified (principal); Z86.73 Personal history of transient ischemic attack (TIA), and cerebral infarction without residual deficits
CPT/HCPCS: 78452; 93017; 93018; 93880; A9502; J2785

== ENCOUNTER 2024-03-16 14:21 | Emergency (ER) | payer MEDICARE, OTHER, SELFPAY ==
[2024-03-16 14:22] VITALS: BP 138/75; PULSE 75; RESP 18; TEMP 36.7; O2SAT 95; BMI 31.6
[2024-03-16 14:31] VITALS: BP 138/75; PULSE 77; O2SAT 96
--- NOTE | 2024-03-16 14:44 | XR_ITS ---
FINAL REPORT CLINICAL HISTORY: FALL, RIGHT HIP PAIN RIGHT HIP PAIN S/P FALL 5 WEEKS AGO FINDINGS: Three views of the right hip demonstrate no acute fracture or dislocation. The joint spaces appear normal. No soft tissue abnormality is seen. IMPRESSION: No acute bony abnormality. Reviewed, Interpreted and Dictated by Cassandra Gillis MD Transcribed by Marisela Torres Authenticated and [facility][1]
--- NOTE | 2024-03-16 14:46 | PC.NURSE ---
DR LAL AT BEDSIDE
--- NOTE | 2024-03-16 14:50 | CT_ITS ---
FINAL REPORT TECHNIQUE: Axial images of the pelvis was performed by computed tomography. Sagittal and coronal reformatted images were obtained and reviewed. This study was performed with techniques to keep radiation doses as low as reasonably achievable (ALARA). Individualized dose reduction techniques using automated exposure control or adjustment of mA and/or kV according to the patient's size were employed. CLINICAL HISTORY: R hip pain after fall FALL 5 WEEKS AGO, UNABLE TO BEAR WEIGHT ON RIGHT LEG FINDINGS: No acute fracture is identified. There are mild degenerative changes of the right sacroiliac joint. There are moderate degenerative changes in the lower lumbar spine. IMPRESSION: No acute fracture. Reviewed, Interpreted and Dictated by Cassandra Gillis MD Transcribed by Marisela Torres Authenticated and [facility]
[2024-03-16 14:52] LABS: Basophils # 0.1 K/mm3 (0-0.2); Basophils % 1.2 % (0.1-2.0); Chloride 106 mmol/L (98-107); Eosinophils # 0.2 K/mm3 (0.0-0.4); Hematocrit 41.8 % (37.0-47.0); Hemoglobin 13.2 g/dL (12.2-16.2); Lymphocytes # 2.1 K/mm3 (0.7-4.5); Lymphocytes % 26.9 % (10-50); Mean Corpuscular HGB Conc 31.7 g/dL (31.8-35.4); Mean Corpuscular Hemoglobin 32.9 pg (27.0-31.2); Mean Corpuscular Volume 103.9 fl (81-99); Mean Platelet Volume 7.5 fl (7.4-10.4); Monocytes # 0.4 K/mm3 (0.1-1.0); Monocytes % 5.7 % (1.7-9.3); Neutrophils % 64.3 % (37.0-80.0); Platelet Count 423 K/mm3 (142-424); Potassium 3.6 mmoL/L (3.5-5.1); Red Blood Count 4.03 M/mm3 (4.20-5.40); Red Cell Distribution Width 13.7 % (11.5-17.5); Sodium 136 mmol/L (136-145); White Blood Count 7.7 K/mm3 (4.8-10.8)
[2024-03-16 14:55] LABS: Alanine Aminotransferase 28 U/L (12-78); Albumin Level 4.1 g/dl (3.5-5.0); Albumin/Globulin Ratio 1.1 (1.1-1.8); Alkaline Phosphatase 178 U/L (38-126); Anion Gap 13.6 mEq/L (5-15); Aspartate Amino Transferase 31 U/L (14-36); Bilirubin,Total 0.5 mg/dl (0.2-1.3); Blood Urea Nitrogen 14 mg/dl (7-17); Calcium 9.2 mg/dl (8.4-10.2); Carbon Dioxide 20 mmol/L (22.0-30.0); Creatinine Clearance Estimated 60 mL/min (50-200); Estimated Glomerular Filt Rate 48 ml/min (>60); GFR (African American) 59 ML/MIN (>60); Globulin 3.7 g/dL (1.3-3.2); Glucose 119 mg/dl (74-100); Total Protein,Serum 7.8 g/dl (6.3-8.2)
--- NOTE | 2024-03-16 15:15 | ED_ITS ---
Discharge Plan Disposition Patient Disposition: Home, Self-Care Prescriptions Prescriptions: No Action nitroglycerin 0.4 mg tablet, sublingual 0.4 mg sublingual Q5-15M PRN (Reason: chest pain) Qty: 20 5RF Rx Instructions: do not exceed 3 doses per episode atorvastatin 40 mg tablet See Rx Instructions .ROUTE .COMPLEX Qty: 90 3RF Rx Instructions: TAKE 1 TABLET BY MOUTH DAILY. diltiazem HCl 240 mg capsule,extended release 24hr 240 mg PO DAILY Qty: 90 3RF losartan 100 mg tablet 100 mg PO DAILY Qty: 90 3RF clopidogrel 75 mg tablet See Rx Instructions .ROUTE .COMPLEX Qty: 90 3RF Rx Instructions: TAKE 1 TABLET BY MOUTH DAILY. hydralazine 25 mg tablet 25 mg PO TID Qty: 90 3RF hydrocodone-acetaminophen 10-325 mg tablet 1 tab PO Q8H PRN (Reason: pain) Qty: 90 0RF methocarbamol 500 mg tablet 500 mg PO TID Qty: 90 0RF aspirin [Adult Aspirin Regimen] 81 mg tablet,delayed release (DR/EC) 81 mg PO DAILY albuterol sulfate [Ventolin HFA] 90 mcg/actuation HFA aerosol inhaler 2 puff INHALATION Q4-6H PRN (Reason: shortness of breath or wheezing) Qty: 8.5 5RF ranolazine 500 mg tablet extended release 12 hr See Rx Instructions .ROUTE .COMPLEX Qty: 180 3RF Rx Instructions: TAKE ONE (1) TABLET BY MOUTH TWO TIMES A DAY. fluoxetine 20 mg capsule See Rx Instructions .ROUTE .COMPLEX Qty: 90 0RF Dose Instruction: TAKE 1 CAPSULE BY MOUTH DAILY FOR MOOD. Rx Instructions: TAKE 1 CAPSULE BY MOUTH DAILY FOR MOOD. lorazepam 1 mg tablet 0.5 mg PO TID 30 Days Qty: 45 1RF spironolactone 25 mg tablet See Rx Instructions .ROUTE .COMPLEX Qty: 30 2RF Rx Instructions: TAKE 1 TABLET BY MOUTH DAILY. omeprazole 40 mg capsule,delayed release(DR/EC) See Rx Instructions .ROUTE .COMPLEX Qty: 90 1RF Dose Instruction: TAKE 1 CAPSULE BY MOUTH DAILY FOR GERD. Rx Instructions: TAKE 1 CAPSULE BY MOUTH DAILY FOR GERD. ropinirole 1 mg tablet See Rx Instructions .ROUTE .COMPLEX Qty: 30 0RF Dose Instruction: TAKE 1 TABLET BY MOUTH DAILY FOR RESTLESS LEG. Rx Instructions: TAKE 1 TABLET BY MOUTH DAILY FOR RESTLESS LEG. Stiolto Respimat 2.5-2.5 mcg/actuation mist 2 puff INHALATION DAILY Rx Instructions: on regular basis Referrals Follow up/Referrals: Mode Love DO [Staff Physician] - See instructions Rafael Pritchett MD [Primary Care Provider] - See instructions Activity Restrictions/Add. Instructions Additional Instructions/Restrictions: Please follow-up with Dr. Love if you continue to have symptoms for an outpatient MRI you may bear weight as tolerated use your walker and assist devices as indicated. Clinical Impressions Clinical Impression: Acute hip pain Discharge ED Provider: George Garcia General Adult HPI <George Garcia MD - Last Filed: 03/16/24 15:22> General Chief complaint: Fall Stated complaint: fell x 5 weeks, pain in R hip Time Seen by Provider: 03/16/24 14:40 Mode of Arrival: Wheelchair Source of Information: Patient Limitations: No Limitations Description of Symptoms (Recalled from ER Triage Doc. by RN): PT REPORTS FALL FROM STANDING ABOUT 5 WEEKS AGO. PT STATES SHE FELT A POP PRIOR TO FALL. PT C/O RIGHT HIP PAIN. HAS BEEN AMBULATING WITH INCREASING PAIN. PT SAW PCP ON 03/08, RECEIVED TORADOL WITHOUT RELIEF. History of Present Illness HPI narrative: Please note that above description of symptoms, in this electronic medical record under categorization of recalled from ER triage doctor by RN are reflective of an initial nursing assessment, however, is not reflective of my full history and physical exam that was personally taken and clarified. Consequentially, this preceding description of symptoms, which may include the patient's categorized chief complaint in the EMR, do not reflect my personal clinical impression, and the ultimate description of history of present illness and patient stated complaints should be deferred to this section of the note. Unless stated otherwise or congruent with this section of the note, additional signs, symptoms, or incongruence should be interpreted as inaccurate with my clinical impression. Related Data Home Medications Medication Instructions Recorded Confirmed aspirin 81 mg tablet,delayed 81 mg PO DAILY CAD 03/25/20 03/08/24 release (Adult Aspirin Regimen) tiotropium 2.5 mcg-olodaterol 2.5 2 puff inhalation DAILY Breathing 01/28/23 03/08/24 mcg/actuation mist for inhalation problems (Stiolto Respimat) Previous Rx's Medication Instructions Recorded albuterol sulfate 90 mcg/actuation 2 puff inhalation Q4-6H PRN 10/14/22 aerosol inhaler (Ventolin HFA) shortness of breath or wheezing #8.5 grams ranolazine 500 mg tablet,extended See Rx Instructions .Route 06/09/23 release,12 hr .COMPLEX Chest Pain #180 tabs nitroglycerin 0.4 mg sublingual 0.4 mg sublingual Q5-15M PRN chest 10/20/23 tablet pain #20 tabs spironolactone 25 mg tablet See Rx Instructions .Route 12/15/23 .COMPLEX Fluid #30 tabs omeprazole 40 mg capsule,delayed See Rx Instructions .Route 12/19/23 release .COMPLEX #90 caps clopidogrel 75 mg tablet See Rx Instructions .Route 12/26/23 .COMPLEX Blood thinner #90 tabs diltiazem HCl 240 mg 240 mg PO DAILY #90 caps 12/26/23 capsule,extended release 24 hr hydralazine 25 mg tablet 25 mg PO TID #90 tabs 12/26/23 losartan 100 mg tablet 100 mg PO DAILY #90 tabs 12/26/23 atorvastatin 40 mg tablet See Rx Instructions .Route 01/09/24 .COMPLEX Cholesterol #90 tabs fluoxetine 20 mg capsule See Rx Instructions .Route 02/06/24 .COMPLEX #90 caps lorazepam 1 mg tablet 0.5 mg (1/2 x 1 mg) PO TID Anxiety 02/06/24 30 days #45 tabs hydrocodone 10 mg-acetaminophen 1 tab PO Q8H PRN pain #90 tabs 03/08/24 325 mg tablet methocarbamol 500 mg tablet 500 mg PO TID Pain #90 tabs 03/08/24 ropinirole 1 mg tablet See Rx Instructions .Route 03/13/24 .COMPLEX #30 tabs Allergies Allergy/AdvReac Type Severity Reaction Status Date / Time methylprednisolone AdvReac Severe Anaphylaxis Verified 03/08/24 14:02 [facility] <George Garcia MD - Last Filed: 03/16/24 15:22> [facility] Disclaimer: The information contained in this section may have been updated after the patient was seen, as this information can be updated by other users. Medical History Hyperlipidemia History of stroke in adulthood Arthritis Surgical History Hx of eye surgery Hx of bladder repair surgery History of total replacement of left ankle Family History Other Cancer Diabetes Heart attack Hypertension Social History Smoking Status: Current every day smoker tobacco type: cigarettes packs per day: 1 alcohol intake: current alcohol intake frequency: holidays/special occasions only substance use type: denies use current occupational status: other Travel in the last 8 weeks: None household members: spouse housing: other caffeine: Yes <George Garcia MD - Last Filed: 03/16/24 15:22> ROS Obtained: Yes All systems reviewed & no additional complaints except as documented Physical Exam <George Garcia MD - Last Filed: 03/16/24 15:22> General General appearance: alert and in distress (Secondary to pain) Head Head exam: atraumatic and normocephalic Eye Eye exam: Present normal appearance, PERRL and EOMI ENT ENT exam: Present mucous membranes moist Neck Neck exam: Present normal inspection, full ROM and trachea midline Respiratory Respiratory exam: Absent respiratory distress, wheezes, stridor, accessory muscle use or prolonged expiratory phase Cardiovascular Cardiovascular exam: Present normal rhythm Abdominal Exam Abdominal exam: Present soft; Absent distention, tenderness, guarding, rebound or rigidity Extremities Exam Extremities exam: Present other (Patient sitting with leg internally rotated most comfortable. Able to straighten leg and externally rotate without issue. Not shortened. Neurovascularly intact. Just most comfortable in this position.); Absent edema Neurological Exam Neurological exam: Present alert, oriented X3, CN II-XII intact and normal gait; Absent motor sensory deficit Skin Skin exam: Present warm and dry; Absent diaphoresis or erythema Medical Decision Making <George Garcia MD - Last Filed: 03/16/24 15:22> Medical Records Medical records reviewed: Yes I reviewed the patient's medical records. Thanh Inquiry Pt receiving controlled substance: No Thanh was queried for this patient: No Vital Signs: 03/16/24 14:22 03/16/24 14:31 03/16/24 15:30 Temperature 98.0 F Temperature Source Oral Pulse Rate 77 59 L Pulse Rate [Radial] 75 Respiratory Rate 18 Blood Pressure 138/75 144/79 H Blood Pressure [Right Arm] 138/75 Blood Pressure Mean [Right Arm] 96 Blood Pressure Source [Right Arm] Automatic Cuff Blood Pressure Position [Right Arm] Sitting 02 Sat by Pulse Oximetry 95 96 96 Oxygen Delivery Method Room Air Room Air Room Air 03/16/24 16:00 Temperature Temperature Source Pulse Rate 60 Pulse Rate [Radial] Respiratory Rate Blood Pressure 165/100 H Blood Pressure [Right Arm] Blood Pressure Mean [Right Arm] Blood Pressure Source [Right Arm] Blood Pressure Position [Right Arm] 02 Sat by Pulse Oximetry 97 Oxygen Delivery Method Room Air Lab Data Lab Results 03/16/24 14:40: WBC 7.7, RBC 4.03 L, Hgb 13.2, Hct 41.8, MCV 103.9 H, MCH 32.9 H , MCHC 31.7 L, RDW 13.7, Plt Count 423, MPV 7.5, Neut % (Auto) 64.3, Lymph % (Auto) 26.9, [place] % (Auto) 5.7, Eos % (Auto) 2.0, Baso % (Auto) 1.2, Neut # (Auto) 5.0, Lymph # (Auto) 2.1, [place] # (Auto) 0.4, Eos # (Auto) 0.2, Baso # (Auto) 0.1, Sodium 136, Potassium 3.6, Chloride 106, Carbon Dioxide 20 L, Anion Gap 13.6, BUN 14, Creatinine 1.10 H, Estimated Creat Clear 60, Estimated GFR 48 L, Est GFR ( Amer) 59, Glucose 119 H, Calcium 9.2, Total Bilirubin 0.5, AST 31, ALT 28, Alkaline Phosphatase 178 H, Total Protein 7.8, Albumin 4.1, G lobulin 3.7 H, Albumin/Globulin Ratio 1.1 03/16/24 14:40 03/16/24 14:40 Orders (Tests/Meds): ED MEDICATIONS Generic Name Dose Route Start Last Admin Trade Name Freq PRN Reason Stop Dose Admin Sodium Chloride 10 ml 03/16/24 14:44 Sodium Chloride 0.9% 10ml Flush Syringe IV 04/15/24 14:43 NEEDED PRN Maintain IV Site ORDERS Category Date Time Status CT bony pelvis Stat Cat Scan 03/16/24 14:50 Completed XR hip RT 2-3V w/pelvis Stat Exams 03/16/24 14:44 Completed Complete Blood Count Auto Diff Stat Lab 03/16/24 14:40 Completed Comprehensive Metabolic Panel Stat Lab 03/16/24 14:40 Completed Medical Decision Narrative: 74-year-old female history of previous CVA not currently on anticoagulation, hypertension, hyperlipidemia presenting with right hip pain. Patient states that she fell from standing 5 weeks ago onto hardwood. Had immediate pain in right hip. When she was getting up she felt a pop in her right hip. Was not trying to be seen until following up today at the discretion of her family members. Has not noticed anything that makes it any better. No bowel or bladder dysfunction, no back pain, no numbness, tingling, or weakness. History obtained with patient and family. On arrival, patient hemodynamically stable. She is in mild distress secondary to pain and she is tearful. She has maximal pain with range of motion of her right hip actively and passively. Sitting with her hip breasted internally rotated and flexed at the hip and knee for maximal comfort. Neurovascular intact and range of motion is intact. Differential includes fracture, sprain, strain, among others. Patient was given Toradol for pain management. X-ray of the right hip appears to be negative on my read. CT pelvis performed, I do not appreciate any fracture or bony abnormality on CT. Final read pending at time of handoff to oncoming physician. <Dung Kowalski MD - Last Filed: 03/16/24 17:34> Vital Signs: 03/16/24 14:22 03/16/24 14:31 03/16/24 15:30 Temperature 98.0 F Temperature Source Oral Pulse Rate 77 59 L Pulse Rate [Radial] 75 Respiratory Rate 18 Blood Pressure 138/75 144/79 H Blood Pressure [Right Arm] 138/75 Blood Pressure Mean [Right Arm] 96 Blood Pressure Source [Right Arm] Automatic Cuff Blood Pressure Position [Right Arm] Sitting 02 Sat by Pulse Oximetry 95 96 96 Oxygen Delivery Method Room Air Room Air Room Air 03/16/24 16:00 Temperature Temperature Source Pulse Rate 60 Pulse Rate [Radial] Respiratory Rate Blood Pressure 165/100 H Blood Pressure [Right Arm] Blood Pressure Mean [Right Arm] Blood Pressure Source [Right Arm] Blood Pressure Position [Right Arm] 02 Sat by Pulse Oximetry 97 Oxygen Delivery Method Room Air Lab Data Lab results reviewed: Yes I reviewed the patient's lab results. Lab Results 03/16/24 14:40: WBC 7.7, RBC 4.03 L, Hgb 13.2, Hct 41.8, MCV 103.9 H, MCH 32.9 H , MCHC 31.7 L, RDW 13.7, Plt Count 423, MPV 7.5, Neut % (Auto) 64.3, Lymph % (Auto) 26.9, [place] % (Auto) 5.7, Eos % (Auto) 2.0, Baso % (Auto) 1.2, Neut # (Auto) 5.0, Lymph # (Auto) 2.1, [place] # (Auto) 0.4, Eos # (Auto) 0.2, Baso # (Auto) 0.1, Sodium 136, Potassium 3.6, Chloride 106, Carbon Dioxide 20 L, Anion Gap 13.6, BUN 14, Creatinine 1.10 H, Estimated Creat Clear 60, Estimated GFR 48 L, Est GFR ( Amer) 59, Glucose 119 H, Calcium 9.2, Total Bilirubin 0.5, AST 31, ALT 28, Alkaline Phosphatase 178 H, Total Protein 7.8, Albumin 4.1, G lobulin 3.7 H, Albumin/Globulin Ratio 1.1 Orders (Tests/Meds): ED MEDICATIONS Generic Name Dose Route Start Last Admin Trade Name Freq PRN Reason Stop Dose Admin Sodium Chloride 10 ml 03/16/24 14:44 Sodium Chloride 0.9% 10ml Flush Syringe IV 04/15/24 14:43 NEEDED PRN Maintain IV Site ORDERS Category Date Time Status CT bony pelvis Stat Cat Scan 03/16/24 14:50 Completed XR hip RT 2-3V w/pelvis Stat Exams 03/16/24 14:44 Completed Complete Blood Count Auto Diff Stat Lab 03/16/24 14:40 Completed Comprehensive Metabolic Panel Stat Lab 03/16/24 14:40 Completed Medical Decision Narrative: 74-year-old female history of previous CVA not currently on anticoagulation, hypertension, hyperlipidemia presenting with right hip pain. Patient states that she fell from standing 5 weeks ago onto hardwood. Had immediate pain in right hip. When she was getting up she felt a pop in her right hip. Was not trying to be seen until following up today at the discretion of her family members. Has not noticed anything that makes it any better. No bowel or bladder dysfunction, no back pain, no numbness, tingling, or weakness. History obtained with patient and family. On arrival, patient hemodynamically stable. She is in mild distress secondary to pain and she is tearful. She has maximal pain with range of motion of her right hip actively and passively. Sitting with her hip breasted internally rotated and flexed at the hip and knee for maximal comfort. Neurovascular intact and range of motion is intact. Differential includes fracture, sprain, strain, among others. Patient was given Toradol for pain management. X-ray of the right hip appears to be negative on my read. CT pelvis performed, I do not appreciate any fracture or bony abnormality on CT. Final read pending at time of handoff to oncoming physician. Reassessment 5:[address] scan performed and x-ray performed which I first interpreted also reviewed radiology read which shows no acute orthopedic abnormality or emergency. Patient able to b bear some weight but is still having difficulty. She states she has assistive vices at home her son is at the bedside she does not want to be admitted for any type of physical therapy or rehab she will follow-up with orthopedic surgery in outpatient setting to get an MRI if she continues to be symptomatic. She was discharged in stable condition. Critical Care <George Garcia MD - Last Filed: 03/16/24 15:22> Critical Care Time Critical Care Time: No
[2024-03-16 15:30] VITALS: BP 144/79; PULSE 59; O2SAT 96
[2024-03-16 16:00] VITALS: BP 165/100; PULSE 60; O2SAT 97
--- NOTE | 2024-03-16 16:38 | PC.NURSE ---
AT BEDSIDE TO HELP PT WITH AMBULATION. PT REFUSED WALKER OR CANE FOR ASSISTANCE. UPON STANDING PT IN PAIN, WEAKNESS IN RIGHT LEG. PT ASSISTED BACK TO BED.
--- NOTE | 2024-03-16 17:30 | PC.NURSE ---
DR CASTILLO AT BEDSIDE FOR REEVALUATION
[2024-03-16 17:32] VITALS: BP 129/83; PULSE 65; RESP 20; TEMP 36.8; O2SAT 95
== END 2024-03-16 17:39 | disposition home or self-care (01) ==
PROVIDERS: Emergency Provider Emergency Medicine; PCP Family Medicine
DX: M25.551 Pain in right hip (principal); F17.210 Nicotine dependence, cigarettes, uncomplicated; I10 Essential (primary) hypertension; E78.5 Hyperlipidemia, unspecified; Z86.73 Personal history of transient ischemic attack (TIA), and cerebral infarction without residual deficits
CPT/HCPCS: 72192; 73502; 80053; 85025; 99284

== ENCOUNTER 2024-04-05 15:35 | Outpatient (CLI) | payer MEDICARE, OTHER, SELFPAY ==
[2024-04-05 18:58] LABS: C-Reactive Protein 9.3 mg/L (0-4)
[2024-04-05 19:03] LABS: Uric Acid 4.3 mg/dl (2.5-6.2)
[2024-04-05 19:17] LABS: Erythrocyte Sedimentation Rate 113 mm/hr (0-30)
[2024-04-07 05:23] LABS: RA Latex Turbid. <10.0 IU/mL (<14.0)
[2024-04-09 19:31] LABS: Antinuclear Antibodies, IFA Negative (.)
== END 2024-04-05 23:59 | disposition home or self-care (01) ==
LOC: LAB.DROPOF 04-06 10:11
PROVIDERS: PCP Family Medicine; Visit Provider Family Medicine
DX: M54.12 Radiculopathy, cervical region (principal); M25.559 Pain in unspecified hip; M50.30 Other cervical disc degeneration, unspecified cervical region; M51.34 Other intervertebral disc degeneration, thoracic region; M54.14 Radiculopathy, thoracic region; S22.050G Wedge compression fracture of T5-T6 vertebra, subsequent encounter for fracture with delayed healing
CPT/HCPCS: 84550; 85651; 86038; 86140; 86431

== ENCOUNTER 2024-08-16 17:46 | Emergency (ER) | payer MEDICARE, OTHER, SELFPAY ==
[2024-08-16 17:47] VITALS: BP 128/73; PULSE 64; RESP 20; TEMP 36.7; O2SAT 93; BMI 25.0
--- NOTE | 2024-08-16 17:49 | ED_ITS ---
<Statement entered by Nikki Acevedo DO - 08/16/24 20:50> I was consulted by the ERIN, and we discussed the complexity of the problems being addressed. I approved the treatment and management plan for this patient's care in the emergency department, thus performing a substantive portion of the medical decision making. Nikki Acevedo DO Discharge Plan Prescriptions Prescriptions: New methocarbamol 750 mg tablet 750 mg PO Q6H PRN (Reason: muscle spasm) Qty: 20 0RF lidocaine 5 % adhesive patch,medicated 1 patch topical DAILY Qty: 30 0RF Rx Instructions: leave on most painful area for up to 12 hrs No Action nitroglycerin 0.4 mg tablet, sublingual 0.4 mg sublingual Q5-15M PRN (Reason: chest pain) Qty: 20 5RF Rx Instructions: do not exceed 3 doses per episode atorvastatin 40 mg tablet See Rx Instructions .ROUTE .COMPLEX Qty: 90 3RF Rx Instructions: TAKE 1 TABLET BY MOUTH DAILY. diltiazem HCl 240 mg capsule,extended release 24hr 240 mg PO DAILY Qty: 90 3RF losartan 100 mg tablet 100 mg PO DAILY Qty: 90 3RF clopidogrel 75 mg tablet See Rx Instructions .ROUTE .COMPLEX Qty: 90 3RF Rx Instructions: TAKE 1 TABLET BY MOUTH DAILY. hydralazine 25 mg tablet 25 mg PO TID Qty: 90 3RF methocarbamol 500 mg tablet 500 mg PO TID Qty: 90 0RF Stiolto Respimat 2.5-2.5 mcg/actuation mist 2 puff INHALATION DAILY Qty: 4 3RF Rx Instructions: on regular basis azithromycin 250 mg tablet See Rx Instructions PO .COMPLEX Qty: 6 0RF Rx Instructions: take 500 mg today (day 1), then 250 mg for 4 days (days 2-5) benzonatate 100 mg capsule 100 mg PO TID PRN (Reason: cough) Qty: 30 0RF ipratropium-albuterol 0.5 mg-3 mg(2.5 mg base)/3 mL solution for nebulization 3 ml inhalation Q6H PRN (Reason: shortness of breath or wheezing) Qty: 90 3RF oxycodone-acetaminophen [Percocet] 10-325 mg tablet 1 tab PO Q6H PRN (Reason: pain) Qty: 120 0RF aspirin [Adult Aspirin Regimen] 81 mg tablet,delayed release (/EC) 81 mg PO DAILY ranolazine 500 mg tablet extended release 12 hr See Rx Instructions .ROUTE .COMPLEX Qty: 180 3RF Rx Instructions: TAKE ONE (1) TABLET BY MOUTH TWO TIMES A DAY. spironolactone 25 mg tablet See Rx Instructions .ROUTE .COMPLEX Qty: 30 2RF Rx Instructions: TAKE 1 TABLET BY MOUTH DAILY. naproxen [Naprosyn] 500 mg tablet 500 mg PO BID Qty: 60 2RF omeprazole 40 mg capsule,delayed release(DR/EC) See Rx Instructions .ROUTE .COMPLEX Qty: 90 1RF Dose Instruction: TAKE 1 CAPSULE BY MOUTH DAILY FOR GERD. Rx Instructions: TAKE 1 CAPSULE BY MOUTH DAILY FOR GERD. albuterol sulfate [Ventolin HFA] 90 mcg/actuation HFA aerosol inhaler 2 puff INHALATION Q4-6H PRN (Reason: shortness of breath or wheezing) Qty: 8.5 5RF lorazepam 1 mg tablet 0.5 mg PO TID 30 Days Qty: 45 1RF ropinirole 1 mg tablet See Rx Instructions .ROUTE .COMPLEX Qty: 30 6RF Dose Instruction: TAKE 1 TABLET BY MOUTH DAILY FOR RESTLESS LEG. Rx Instructions: TAKE 1 TABLET BY MOUTH DAILY FOR RESTLESS LEG. fluoxetine 20 mg capsule See Rx Instructions .ROUTE .COMPLEX Qty: 90 0RF Dose Instruction: TAKE 1 CAPSULE BY MOUTH DAILY FOR MOOD. Rx Instructions: TAKE 1 CAPSULE BY MOUTH DAILY FOR MOOD. Referrals Follow up/Referrals: Rafael Pritchett MD [Primary Care Provider] - See instructions Activity Restrictions/Add. Instructions Additional Instructions/Restrictions: Follow-up with your PCP for no improvement or worsening signs or symptoms or return to the ER as needed. I have sent in a muscle relaxer and a numbing patch to your pharmacy. Please do not drive while on the muscle relaxer. Clinical Impressions Clinical Impression: Fall Print Language Print Language: [place] Discharge ED Provider: Nikki Acevedo General Adult HPI General Chief complaint: Fall Stated complaint: Ao08/16 fall back pain Time Seen by Provider: 08/16/24 17:49 History of Present Illness HPI narrative: Patient presents for evaluation of a fall. Patient reports that she sneezed real hard and felt a pop in her upper thoracic back on the right side under her scapula that caused her to fall due to the pain. She thinks she may have lost consciousness due to how bad it hurt but did not strike her head. She reports that it is now painful to move that area of her back but she denies any chest pain shortness of breath fever chills hemoptysis hematochezia melena nausea vomiting diarrhea. Related Data Home Medications ?Medication ?Instructions ?Recorded ?Confirmed aspirin 81 mg tablet,delayed 81 mg PO DAILY CAD 03/25/20 08/03/24 release (Adult Aspirin Regimen) Previous Rx's ?Medication ?Instructions ?Recorded ranolazine 500 mg tablet,extended See Rx Instructions .Route 06/09/23 release,12 hr .COMPLEX Chest Pain #180 tabs nitroglycerin 0.4 mg sublingual 0.4 mg sublingual Q5-15M PRN chest 10/20/23 tablet pain #20 tabs clopidogrel 75 mg tablet See Rx Instructions .Route 12/26/23 .COMPLEX Blood thinner #90 tabs diltiazem HCl 240 mg 240 mg PO DAILY #90 caps 12/26/23 capsule,extended release 24 hr hydralazine 25 mg tablet 25 mg PO TID #90 tabs 12/26/23 losartan 100 mg tablet 100 mg PO DAILY #90 tabs 12/26/23 atorvastatin 40 mg tablet See Rx Instructions .Route 01/09/24 .COMPLEX Cholesterol #90 tabs methocarbamol 500 mg tablet 500 mg PO TID Pain #90 tabs 03/08/24 spironolactone 25 mg tablet See Rx Instructions .Route 04/02/24 .COMPLEX Fluid #30 tabs naproxen 500 mg tablet (Naprosyn) 500 mg PO BID #60 tabs 04/12/24 omeprazole 40 mg capsule,delayed See Rx Instructions .Route 06/04/24 release .COMPLEX #90 caps albuterol sulfate 90 mcg/actuation 2 puff inhalation Q4-6H PRN 06/28/24 aerosol inhaler (Ventolin HFA) shortness of breath or wheezing #8.5 grams lorazepam 1 mg tablet 0.5 mg (1/2 x 1 mg) PO TID Anxiety 07/04/24 30 days #45 tabs fluoxetine 20 mg capsule See Rx Instructions .Route 08/02/24 .COMPLEX #90 caps ropinirole 1 mg tablet See Rx Instructions .Route 08/02/24 .COMPLEX #30 tabs azithromycin 250 mg tablet See Rx Instructions PO .COMPLEX #6 08/03/24 tabs benzonatate 100 mg capsule 100 mg PO TID PRN cough #30 caps 08/03/24 ipratropium 0.5 mg-albuterol 3 mg 3 ml inhalation Q6H PRN shortness 08/03/24 (2.5 mg base)/3 mL nebulization of breath or wheezing #90 mL soln oxycodone-acetaminophen 10 mg-325 1 tab PO Q6H PRN pain #120 tabs 08/03/24 mg tablet (Percocet) tiotropium 2.5 mcg-olodaterol 2.5 2 puff inhalation DAILY Breathing 08/03/24 mcg/actuation mist for inhalation problems #4 grams (Stiolto Respimat) lidocaine 5 % topical patch 1 patch topical DAILY #30 ea 08/16/24 methocarbamol 750 mg tablet 750 mg PO Q6H PRN muscle spasm #20 08/16/24 tabs Allergies Allergy/AdvReac Type Severity Reaction Status Date / Time methylprednisolone AdvReac Severe Anaphylaxis Verified 08/03/24 13:35 [facility] Disclaimer: The information contained in this section may have been updated after the patient was seen, as this information can be updated by other users. Medical History Hyperlipidemia History of stroke in adulthood Arthritis Surgical History Hx of eye surgery Hx of bladder repair surgery History of total replacement of left ankle Family History Other Cancer Diabetes Heart attack Hypertension Social History Smoking Status: Current every day smoker tobacco type: cigarettes packs per day: 1 alcohol intake: current alcohol intake frequency: holidays/special occasions only substance use type: denies use current occupational status: other household members: spouse housing: other caffeine: Yes Other Medical History Have you received the Flu Vaccine for this season: No Have you received the Pneumonia Vaccine: Yes ROS Obtained: Yes Systems reviewed as appropriate & no additional complaints except as documented Physical Exam General General appearance: alert and in no apparent distress Respiratory Respiratory exam: Present normal lung sounds bilaterally Cardiovascular Cardiovascular exam: Present regular rate Neurological Exam Neurological exam: Present alert and oriented X3 Medical Decision Making Medical Records Screening: Per USPSTF and CDC recommendations, given the prevalence of disease in our region, it is our hospital?s policy to screen for HIV and viral Hepatitis for all patients aged 18 and over and those with ongoing risk factors. Thanh Inquiry Pt receiving controlled substance: No Vital Signs: 08/16/24 17:47 08/16/24 17:55 08/16/24 18:01 Temperature 98.1 F Temperature Source Oral Pulse Rate 70 64 Pulse Rate [Left] 64 Respiratory Rate 20 Blood Pressure 133/80 128/73 Blood Pressure [Left Arm] 128/73 Blood Pressure Mean Blood Pressure Mean [Left Arm] 91 02 Sat by Pulse Oximetry 93 L 92 L 93 L Oxygen Delivery Method Room Air 08/16/24 18:30 08/16/24 19:00 Temperature Temperature Source Pulse Rate 62 63 Pulse Rate [Left] Respiratory Rate Blood Pressure 119/81 120/73 Blood Pressure [Left Arm] Blood Pressure Mean 101 Blood Pressure Mean [Left Arm] 02 Sat by Pulse Oximetry 93 L 92 L Oxygen Delivery Method Room Air Lab Data Lab results reviewed: Yes I reviewed the patient's lab results. Orders (Tests/Meds): ED MEDICATIONS Discontinued Medications Generic Name Dose Route Start Last Admin Trade Name Freq PRN Reason Stop Dose Admin Acetaminophen 1,000 mg 08/16/24 17:54 08/16/24 18:25 Acetaminophen 500mg Tab PO 08/16/24 17:55 1,000 mg ONCE ONE Administration Lidocaine 1 each 08/16/24 17:54 08/16/24 18:25 Lidocaine 5% Transdermal Patch TP 08/16/24 17:55 1 each ONCE ONE Administration Methocarbamol 500 mg 08/16/24 19:40 08/16/24 19:57 Methocarbamol 500mg Tablet PO 08/16/24 19:41 500 mg ONCE ONE Administration Oxycodone HCl 5 mg 08/16/24 19:40 08/16/24 19:57 Oxycodone 5mg Immediate Release Tablet PO 08/16/24 19:41 5 mg ONCE ONE Administration ORDERS Category Date Time Status CT cervical spine wo con Stat Cat Scan 08/16/24 17:[address] head/brain wo con Stat Cat Scan 08/16/24 17:[address] head/brain wo con Stat Cat Scan 08/16/24 19:[address] lumbar spine wo con Stat Cat Scan 08/16/24 17:[address] thoracic spine wo con Stat Cat Scan 08/16/24 17:59 Completed HIV (1&2) Antibody Rapid Stat Lab 08/16/24 18:02 Ordered Hep C Ab with Reflex to RNA Stat Lab 08/16/24 18:02 Ordered Medical Decision Narrative: In summary patient is a 74-year-old female who presents to the emergency department for evaluation of a fall and right upper back pain. Patient is hemodynamically upon arrival, afebrile. Physical exam is remarkable for no signs of visible trauma including bony deformity ecchymosis abrasions contusions anywhere on the dorsal spine head and neck. Patient's Glascow coma score is 15 she is awake alert and oriented person place and circumstance and she has no C- spine tenderness and full range of motion. She is however tender about the right scapula but again no palpable bony deformity noted. She also reports some tenderness along the dorsal midline thoracic spine negative on the C-spine or lumbar spine. Differential diagnosis includes contusion versus fracture versus closed head injury data. Initial workup will be conducted with CT scan of the head neck C-spine T-spine L-spine. Initial interventions include Tylenol and Lidoderm patch for now. Initial workup reviewed by me and my informal interpretation of her imaging shows no acute fracture or intracranial injury however initial radiology read on the CT scan was concerning for possible intracranial injury but the quality of the study was poor. Given that we repeated the Noncon CT of the head that does not show any concerns for intracranial injury and likely first imaging findings were artifact. Upon repeat evaluation patient still reports some right upper back pain. Given this patient is appropriate discharge with prescription for Robaxin and Lidoderm patch with follow-up with her PCP. Critical Care Critical Care Time Critical Care Time: No
[2024-08-16 17:55] VITALS: BP 133/80; PULSE 70; O2SAT 92
--- NOTE | 2024-08-16 17:59 | CT_ITS ---
PROCEDURE INFORMATION: Exam: CT Lumbar Spine Without Contrast Exam date and time: 08/16/2024 6:13 PM Age: 74 years old Clinical indication: Injury or trauma; Fall; Blunt trauma (contusions or hematomas); Additional info: Trauma, critical injury suspected TECHNIQUE: Imaging protocol: Computed tomography of the lumbar spine without contrast. Radiation optimization: All CT scans at this facility use at least one of these dose optimization techniques: automated exposure control; mA and/or kV adjustment per patient size (includes targeted exams where dose is matched to clinical indication); or iterative reconstruction. COMPARISON: MR LUMBAR SPINE WO CON 06/23/2023 2:52 PM FINDINGS: Bones/joints: Osseous alignment is normal. No vertebral body compression. No acute fracture. Bones are diffusely osteopenic. Significant degenerative disc changes are present at the L3-L4 and L5-S1 disc levels. Prominent disc bulge and uncovertebral spurring produces severe stenosis of the right L5 neural foramen. Otherwise mild multilevel spinal stenosis is present. Mild degenerative changes noted in the lower thoracic spine and bilateral sacroiliac joints. Kidneys and ureters: Multiple bilateral renal cysts noted, as seen on prior studies. Vasculature: Diffuse atherosclerotic calcification of the distal aorta and iliac arteries. Soft tissues: Unremarkable. IMPRESSION: No acute abnormality. Chronic findings as noted. COMMENTS: Consistent with the [employer]'s Incidental Findings Committee white paper (J Am Mary Ann Radiol 2018): Any incidental renal lesion less than 1 cm or classified as too small to characterize, or any incidental cystic renal lesion characterized as simple-appearing, is likely benign. No follow-up imaging is recommended for these lesions per consensus recommendations based on imaging criteria.
--- NOTE | 2024-08-16 17:59 | CT_ITS ---
PROCEDURE INFORMATION: Exam: CT Head Without Contrast Exam date and time: 08/16/2024 6:11 PM Age: 74 years old Clinical indication: Injury or trauma; Fall; Other: Pain; Additional info: Trauma, critical injury suspected TECHNIQUE: Imaging protocol: Computed tomography of the head without contrast. Radiation optimization: All CT scans at this facility use at least one of these dose optimization techniques: automated exposure control; mA and/or kV adjustment per patient size (includes targeted exams where dose is matched to clinical indication); or iterative reconstruction. COMPARISON: CT HEAD/BRAIN WO CON 04/19/2021 4:08 PM FINDINGS: Brain: Ill-defined cortical hypodensity and blurring of burnett-white matter differentiation in the bilateral anterior frontal lobes, bilateral posterior occipital lobes, and anterior-inferior temporal lobes. No sulcal effacement, significant mass effect or midline shift. Basal cisterns are patent. No evidence of acute intracranial hemorrhage or vascular territory acute/subacute infarct. No intra- or extra-axial fluid collection. Cerebral ventricles: No hydrocephalus. Paranasal sinuses: No air fluid levels in the visualized paranasal sinuses. Mastoid air cells: Visualized mastoid air cells are clear. Bones: No evidence of acute calvarial or skull base fracture. Soft tissues: Unremarkable. IMPRESSION: Ill-defined cortical hypodensity and blurring of burnett-white matter differentiation in the bilateral anterior frontal lobes, bilateral posterior occipital lobes, and anterior-inferior temporal lobes. 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 No evidence of acute intracranial hemorrhage.
--- NOTE | 2024-08-16 17:59 | CT_ITS ---
PROCEDURE INFORMATION: Exam: CT Maxillofacial Without Contrast Exam date and time: 08/16/2024 6:13 PM Age: 74 years old Clinical indication: Injury or trauma; Fall; Blunt trauma; Additional info: Trauma, critical injury suspected TECHNIQUE: Imaging protocol: Computed tomography of the face without contrast. Radiation optimization: All CT scans at this facility use at least one of these dose optimization techniques: automated exposure control; mA and/or kV adjustment per patient size (includes targeted exams where dose is matched to clinical indication); or iterative reconstruction. COMPARISON: CT HEAD/BRAIN WO CON 08/16/2024 6:11 PM FINDINGS: Paranasal sinuses: No air-fluid levels. Orbital cavities: Globes and orbital structures are unremarkable. No evidence of retrobulbar hematoma. Bones: No evidence of acute fracture. Bilateral temporomandibular joints are congruent. Pterygoid plates and lamina papyracea are intact. Soft tissues: Unremarkable. IMPRESSION: No evidence of acute traumatic maxillofacial injury. PROCEDURE INFORMATION: Exam: CT Cervical Spine Without Contrast Exam date and time: 08/16/2024 6:13 PM Age: 74 years old Clinical indication: Injury or trauma; Fall; Blunt trauma; Additional info: Trauma, critical injury suspected TECHNIQUE: Imaging protocol: Computed tomography of the cervical spine without contrast. Radiation optimization: All CT scans at this facility use at least one of these dose optimization techniques: automated exposure control; mA and/or kV adjustment per patient size (includes targeted exams where dose is matched to clinical indication); or iterative reconstruction. COMPARISON: CT CERVICAL SPINE WO CON 08/16/2024 6:13 PM FINDINGS: Bones: No evidence of acute fracture or malalignment. Lungs: No acute abnormality or suspicious mass lesion in the visualized lung apices. Soft tissues: Unremarkable. IMPRESSION: No evidence of acute osseous abnormality in the cervical spine.
--- NOTE | 2024-08-16 17:59 | CT_ITS ---
PROCEDURE INFORMATION: Exam: CT Thoracic Spine Without Contrast Exam date and time: 08/16/2024 6:13 PM Age: 74 years old Clinical indication: Injury or trauma; Fall; Blunt trauma (contusions or hematomas); Additional info: Trauma, critical injury suspected TECHNIQUE: Imaging protocol: Computed tomography of the thoracic spine without contrast. Radiation optimization: All CT scans at this facility use at least one of these dose optimization techniques: automated exposure control; mA and/or kV adjustment per patient size (includes targeted exams where dose is matched to clinical indication); or iterative reconstruction. COMPARISON: MR THORACIC SPINE WO CON 01/25/2023 12:57 PM FINDINGS: Bones/joints: Moderate chronic appearing compression of the T5 vertebra. Evidence of prior vertebroplasty at T6. Multiple old, healed right rib fractures. No acute fracture. Osseous alignment is normal. Moderate degenerative disc changes throughout the lower thoracic spine. Soft tissues: Unremarkable. Vasculature: Moderate atherosclerotic calcification throughout the aorta. No aneurysm. Lymph nodes: Calcified right hilar and mediastinal lymph nodes. No lymphadenopathy. Lungs: Calcified granulomas noted in the right lower lobe. Spleen: Multiple calcified granulomas noted in the spleen. IMPRESSION: No acute abnormality. Chronic findings as noted.
[2024-08-16 18:01] VITALS: BP 128/73; PULSE 64; O2SAT 93
[2024-08-16] MEDS: ACETAMINOPHEN 500MG TAB 1000 MG PO (18:25)
[2024-08-16] MEDS: LIDOCAINE 5% TRANSDERMAL PATCH 1 EACH TP (18:25)
[2024-08-16 18:30] VITALS: BP 119/81; PULSE 62; O2SAT 93
--- NOTE | 2024-08-16 18:30 | PC.NURSE ---
pt removed her c collar
[2024-08-16 19:00] VITALS: BP 120/73; PULSE 63; O2SAT 92
--- NOTE | 2024-08-16 19:30 | PC.NURSE ---
rounded on patient, patient asking about radiology reads, patient informed of time frame
--- NOTE | 2024-08-16 19:38 | CT_ITS ---
PROCEDURE INFORMATION: Exam: CT Head Without Contrast Exam date and time: 08/16/2024 7:50 PM Age: 74 years old Clinical indication: Injury or trauma; Fall; Other: Pain; Additional info: Fall, abnormal previous CT noncon TECHNIQUE: Imaging protocol: Computed tomography of the head without contrast. Radiation optimization: All CT scans at this facility use at least one of these dose optimization techniques: automated exposure control; mA and/or kV adjustment per patient size (includes targeted exams where dose is matched to clinical indication); or iterative reconstruction. COMPARISON: CT HEAD/BRAIN WO CON 08/16/2024 6:11 PM FINDINGS: Brain: Areas of hypodensity previously described in the frontal, occipital and temporal regions are not readily apparent on the current study, suggesting there may have been artifactual. No mass effect or midline shift. No acute intracranial hemorrhage or definite evidence of acute ischemia. Cerebral ventricles: No ventriculomegaly. Paranasal sinuses: Visualized sinuses are unremarkable. No fluid levels. Mastoid air cells: Visualized mastoid air cells are well aerated. Bones: Unremarkable. No acute fracture. Soft tissues: Unremarkable. IMPRESSION: No acute intracranial abnormality evident on the current study. Previously described abnormalities are no longer apparent and may have been artifactual. If there is persistent clinical concern for intracranial pathology, consider MRI
[2024-08-16] MEDS: OXYCODONE 5MG IMMEDIATE RELEASE TABLET 5 MG PO (19:57)
[2024-08-16] MEDS: METHOCARBAMOL 500MG TABLET 500 MG PO (19:57)
[2024-08-16 20:24] VITALS: BP 146/85; PULSE 61; RESP 18; TEMP 36.8; O2SAT 95
== END 2024-08-16 20:26 | disposition home or self-care (01) ==
PROVIDERS: Emergency Provider Emergency Medicine; PCP Family Medicine
DX: M54.9 Dorsalgia, unspecified (principal); W19.XXXA Unspecified fall, initial encounter; Y93.9 Activity, unspecified; Y92.9 Unspecified place or not applicable
CPT/HCPCS: 70450; 72125; 72128; 72131; 99284

== ENCOUNTER 2024-09-12 12:15 | Outpatient (CLI) | payer MEDICARE, OTHER, SELFPAY ==
[2024-09-12] VITALS (7 sets, daily range): BP systolic 109–166; BP diastolic 60–83; PULSE 60–70; RESP 18–20; TEMP 36.6; O2SAT 93–99; BMI 23.6
--- NOTE | 2024-09-12 12:16 | CT_ITS ---
APPROVED REPORT Radio Mechanic: CLINICAL INDICATION Chest Pain TECHNIQUE Image Acquisition: A 128 slice MDCT scanner (Cel-Fi by [employer] View) was used for data acquisition. A noncontrast coronary calcium scan was performed. A CT attenuation threshold of 130 Hounsfield units (HU) was used for the detection of calcium in contiguous voxels of 1 sq mm in area to be counted as individual lesions. Bolus tracking in the ascending aorta with a threshold of 180 HU was performed. Immediately afterwards, ECG synchronized cardiac CT was then performed from the cardiac base to apex using retrospective gating with ECG tube current modulation. A total of 85 mL of Isovue 370 mg/mL contrast medium was administered at 5 mL/sec followed by a saline flush using a biphasic injection protocol. A tube voltage of 120 KVp was used. The patient received the following medications prior to the cardiac CT. The average heart rate at the time of acquisition was 64 bpm and regular. Image Reconstruction Transaxial images were reconstructed at 0.67 mm slide thickness. Data was reviewed interactively on an advanced workstation capable of 2 and 3-dimensional displays in all conventional reconstruction formats, including multiplanar reformations, maximum intensity projections, curved multiplanar reformations, and volume rendered reconstructions. When applicable, selected routine images describing the relevant coronary anatomy and pathology were saved and sent to PACS. Complications None Technical Quality Overall image quality was suboptimal due to significant motion and blurring artifact. Coronary artery opacification was adequate. Total DLP (Dose-Length Product) is 1500.3 mGy-cm. The reported value represents the total of one or more individual components during the CT acquisition of this date and at this time, and as such, the same value may appear in more than one CT report depending on the interpreting/reporting physicians. COMPARISON None FINDINGS CT Coronary Calcium Scoring LMA (Left Main Artery) = 54 LAD (Left Anterior Descending) = 325 LCX (Left Coronary Circumflex) = 187 RCA (Right Coronary Artery) = 376 Total Calcium Score = 887 using the AJ-130 method. The observed calcium score of 887 is at 93th percentile for subjects of the same age, sex, and race/ethnicity. The interpretation of the calcium heart score is based on the following continuum*: 0 = no calcified plaque detected (risk of coronary artery disease is very low ??? less than 5%) 1-10 = calcium detected in extremely minimal levels (risk of coronary diseases is still low ??? less than 10%) 11-100 = mild levels of plaque detected with certainty (mild or minimal narrowing of heart arteries is likely) 101-400 = definite,at least moderate levels of plaque detected (relatively high risk of a heart attack within 3-5 years) >401-999 = extensive levels of plaque detected (high risk of heart attack, high levels of vascular disease are present, high likelihood of at least one significant coronary narrowing) *The calcium heart score quantifies the burden of coronary calcification/plaque in the coronary arteries. The calcium heart score is not able to evaluate the presence or burden of non-calcified (i.e. soft) plaque. There is also calcification in the aortic valve, as well as descending thoracic aorta. Coronary CT Angiography The coronary arterial system is right dominant. Quantitative Stenosis Grading: Left Main (LM): The left main originates normally from the left sinus of Valsalva. The LM bifurcates into the left anterior descending artery and left circumflex artery. There is mixed calcified/noncalcified plaque in the LM, with < 25% luminal stenosis. Left Anterior Descending (LAD) and Diagonal Branches: The LAD gives off 2 diagonal branch(es). There is mixed calcified/non-calcified plaque in the proximal to mid LAD segments, with up to 70-90% luminal stenosis. There is no evidence of LAD-myocardial bridge. Left Circumflex (LCX) and Obtuse Marginals (OM): The LCX gives off 1 Obtuse Marginal (OM) branch(es). There is mixed calcified/noncalcified plaque in the proximal LCx with up to 30-50% luminal stenosis. Right Coronary Artery (RCA): The RCA originates normally from the right sinus of Valsalva. The RCA gives off a posterior descending artery (PDA) and posterolateral (PL) branches. There is mixed calcified/non-calcified plaque in the proximal to mid RCA segments, with up to 50-70% luminal stenosis. Non-Coronary Cardiac Findings: Analysis of the left ventricular (LV) structure and function was performed after 3-D reconstruction of the LV from axial images, with user-corrected automatic contouring for assessment of LV volumes and user-defined reconstruction from oblique planes for measurement of 3-D cardiac structure and function. -The left ventricle systolic function is normal. -There is no left atrial appendage filling defect. Two right pulmonary veins and two left pulmonary veins drain normally into the left atrium. -No pericardial thickening or calcification. -Central and branch pulmonary arteries in the [id number] are unremarkable. -Thoracic aorta within the visualized thoracic aortic-branches in the [id number] is unremarkable. Extracardiac Structures No significant extra-cardiac findings. Note, however, that this study is focused on the cardiac findings. IMPRESSION -Suboptimal image quality due to significant motion and blurring artifact. -Presence of coronary calcification with an Agatston score = 887 using the AJ-130 method. -The observed calcium score of 887 is at 93rd percentile for subjects of the same age, sex, and race/ethnicity. -Moderate to severe multivessel atherosclerotic coronary disease, with possible evidence of significant flow-limiting atherosclerosis of the coronary arteries. -CAD-RADS 4A. Management recommendations per ACC/AHA guidelines*, as clinically appropriate. *Recommendations: CAD RADS 0: Reassurance. Consider non-atherosclerotic causes of chest pain. CAD RADS 1: Consider non-atherosclerotic causes of chest pain. Consider preventive therapy and risk factor modification. CAD RADS 2: Consider non-atherosclerotic causes of chest pain. Consider preventive therapy and risk factor modification, particularly for patients with nonobstructive plaque in multiple segments. CAD RADS 3: Consider further functional testing. Consider symptom-guided anti-ischemic and preventive pharmacotherapy as well as risk factor modification per published guideline statements. CAD RADS 4A: Consider further functional testing or invasive coronary angiography with revascularization per published guideline statements. Consider symptom-guided anti-ischemic and preventive pharmacotherapy as well as risk factor modification per published guideline statements. CAD RADS 4B: Invasive coronary angiography recommended with revascularization per published guideline statements. Consider symptom-guided anti-ischemic and preventive pharmacotherapy as well as risk factor modification per published guideline statements. CAD RADS 5: Consider invasive angiography and/or viability assessment with revascularization per published guideline statements. Consider symptom-guided anti-ischemic and preventive pharmacotherapy as well as risk factor modification per published guideline statements. CRITICAL RESULT None COMMUNICATION Per this written report The coronary and cardiac findings of this CCTA were reviewed, reported, and signed by Artie Rascon MD (Occupational Therapy Supervisor) Conclusion Electronically signed by : Pham Rascon MD 09/13/2024 23:51:30
[2024-09-12 13:00] LABS: Chloride 103 mmol/L (98-107); Potassium 4.4 mmoL/L (3.5-5.1); Sodium 132 mmol/L (136-145)
[2024-09-12 13:03] LABS: Anion Gap 6.4 mEq/L (5-15); Blood Urea Nitrogen 18 mg/dl (7-17); Calcium 8.9 mg/dl (8.4-10.2); Carbon Dioxide 27 mmol/L (22.0-30.0); Creatinine Clearance Estimated 42 mL/min (50-200); Estimated Glomerular Filt Rate 44 ml/min (>60); GFR (African American) 53 ML/MIN (>60); Glucose 114 mg/dl (74-100)
--- NOTE | 2024-09-12 13:41 | PC.NURSE ---
Spoke w/ B AISHWARYA Richter about pt's recent labs. Per protocol pt to recieve 1 L of NS. Pt has not dx of CHF and no recent echo noted. Physician gave go ahead for pt to recieve 1 L bolus and to proceed w/ CTA.
--- NOTE | 2024-09-12 14:00 | CA_ITS ---
APPROVED REPORT EXAM: Comprehensive 2D, Doppler, and color-flow Echocardiogram Professional Shopper: Consuelo Monson RT(R) Ht: 5 ft 5 in Wt: 147lbs BSA: 1.74 BP: 100/66 mmHg Indications: CP, COPD, smoker, HTN, HLD, CAD, hx stroke 2D Dimensions LVEF (Liu's) 71.20 % F: 54 - 74 LV Volume 72.50 mL F: 46 - 106 LV Volume Index 41.7 mL/m2 F: 29 - 61 EF AP4 69.50 % EF AP2 69.1 % EF BP 71.2 % GL Strain -19.3 % M-Mode Dimensions RVDd 2.78 cm (0.9-2.6) LA Diam 3.16 cm (1.9-4.0) LVDd 4.39 cm (3.5-5.7) LVDs 2.96 cm (3.5-5.7) IVSd 0.71 cm (0.6-1.1) PWd 0.82 cm (0.6-1.1) EF (Teich) 61.10% FS 32.60% EDV (Teich) 87.20 mL ESV (Teich) 33.90 mL LV Diastology E Decel Time 183 (160-240 msec) E/A Ratio 0.6 Mitral Valve MV E Max Yonathan. 68.0 (40-130 cm/s) MV A Velocity 107.0 (40-130 cm/s) E/A Ratio 0.64 MV PHT 54.0 ms Left Ventricle The left ventricle is normal size. The left ventricular systolic function is normal. The left ventricular ejection fraction is within the normal range. There is increased LV wall thickness. There is normal LV segmental wall motion. The left ventricular diastolic function is normal. LVEF is 55%. Right Ventricle The right ventricle is normal size. The right ventricular systolic function is normal. Atria Left atrium is mildly dilated. Right atrium is mildly dilated. There is no Doppler evidence of interatrial shunt. Aortic Valve The aortic valve is mildly thickened. There is no aortic valvular stenosis. No aortic regurgitation is present. Mitral Valve The mitral valve is normal in structure. No evidence of mitral valve stenosis. Trace mitral regurgitation. Tricuspid Valve Tricuspid valve is grossly normal in structure and function. Trace tricuspid regurgitation. There is insufficient TR jet to estimate RVSP. Pulmonic Valve The pulmonary valve is normal in structure. Trace pulmonic regurgitation. Great Vessels The aortic root is normal in size. The ascending aorta is normal in size. IVC is normal in size and collapses >50% with inspiration. Pericardium There is no pericardial effusion. Other Information Study Quality: Fair Conclusion Normal biventricular systolic function. Mild biatrial dilation. No significant valvular stenosis or regurgitation. Electronically signed by : Pham Rascon MD 09/23/2024 11:54:15
[2024-09-12] MEDS: SODIUM CHLORIDE 0.9% 10ML SYR (RAD ONLY) 10 ML IV (14:13)
[2024-09-12] MEDS: 0.9 % SODIUM CHLORIDE 50 ML VIAL IV (14:13)
[2024-09-12] MEDS: IOPAMIDOL-370 (76%);100ML BOTTLE 85 ML IV (14:13)
[2024-09-12] MEDS: 0.9 % SODIUM CHLORIDE 1000ML 1,000 ML 999 ML IV (14:25)
== END 2024-09-12 15:45 | disposition home or self-care (01) ==
PROVIDERS: PCP Family Medicine; Visit Provider Nurse Practitioner Family
DX: R94.30 Abnormal result of cardiovascular function study, unspecified (principal); R07.89 Other chest pain; J44.9 Chronic obstructive pulmonary disease, unspecified; Z72.0 Tobacco use; E78.5 Hyperlipidemia, unspecified
CPT/HCPCS: 75574; 80048; 93306; J7030; Q9967

== ENCOUNTER 2024-10-05 16:05 | Observation (INO) | payer MEDICARE, OTHER, SELFPAY ==
[2024-10-05] VITALS (11 sets, daily range): BP systolic 84–112; BP diastolic 51–65; PULSE 56–68; RESP 12–20; TEMP 36.5–36.8; O2SAT 94–96; BMI 24.4; BMI 24.3
--- NOTE | 2024-10-05 16:08 | ECG_ITS ---
APPROVED REPORT Exam: Resting ECG HR:66 bpm ECG Measurements Heart Rate 66 AXES MO 187 P 41 QRSd 93 QRS 75 QT 380 T 75 QTc 393 Conclusion SINUS RHYTHM NORMAL ECG UNCONFIRMED REPORT Electronically signed by : ELVIRA NAVARRO, 10/07/2024 06:34:40
--- NOTE | 2024-10-05 16:27 | ED_ITS ---
Discharge Plan Disposition Patient Disposition: Admitted Clinical Impressions Clinical Impression: MASON (acute kidney injury) Discharge ED Provider: Jj Hayes Adult HPI General Chief complaint: Weakness Stated complaint: cp Time Seen by Provider: 10/05/24 16:27 History of Present Illness HPI narrative: Patient presents for evaluation following episode of hypotension noted by home health. She reports that she has been experiencing nausea and vomiting for the past several days in the absence of abdominal pain, urinary symptoms, or any changes in medications, missed doses of medications, sick contacts, overt fevers, headache, trauma, or other identifiable exacerbating or alleviating symptoms. She reports chronic pain all over her body. She states to me that she drinks plenty of liquids however also reports at times decreased p.o. intake. No other complaints at this time. Please note that above description of symptoms, in this electronic medical record under categorization of recalled from ER triage doctor by RN are reflective of an initial nursing assessment, however, is not reflective of my full history and physical exam that was personally taken and clarified. Consequentially, this preceding description of symptoms, which may include the patient's categorized chief complaint in the EMR, do not reflect my personal clinical impression, and the ultimate description of history of present illness and patient stated complaints should be deferred to this section of the note. Unless stated otherwise or congruent with this section of the note, additional signs, symptoms, or incongruence should be interpreted as inaccurate with my clinical impression. Related Data Home Medications ?Medication ?Instructions ?Recorded ?Confirmed aspirin 81 mg tablet,delayed 81 mg PO DAILY CAD 03/25/20 10/05/24 release (Adult Aspirin Regimen) clopidogrel 75 mg tablet 75 mg PO DAILY Blood thinner 10/05/24 10/05/24 fluoxetine 20 mg capsule 20 mg PO DAILY 10/05/24 10/05/24 omeprazole 40 mg capsule,delayed 40 mg PO DAILY 10/05/24 10/05/24 release ropinirole 1 mg tablet 1 mg PO DAILY 10/05/24 10/05/24 Previous Rx's ?Medication ?Instructions ?Recorded nitroglycerin 0.4 mg sublingual 0.4 mg sublingual Q5-15M PRN chest 10/20/23 tablet pain #20 tabs diltiazem HCl 240 mg 240 mg PO DAILY #90 caps 12/26/23 capsule,extended release 24 hr nystatin 100,000 unit/mL oral 5 ml PO QID #250 mL 08/22/24 suspension naproxen 500 mg tablet (Naprosyn) 500 mg PO BID #60 tabs 08/27/24 lorazepam 1 mg tablet 0.5 mg (1/2 x 1 mg) PO TID Anxiety 08/31/24 30 days #45 tabs oxycodone-acetaminophen 10 mg-325 1 tab PO Q6H PRN pain #120 tabs 09/28/24 mg tablet (Percocet) methocarbamol 500 mg tablet 500 mg PO TID Pain #90 tabs 10/03/24 Allergies Allergy/AdvReac Type Severity Reaction Status Date / Time methylprednisolone AdvReac Severe Anaphylaxis Verified 10/05/24 18:34 [facility] Dis[facility]: The information contained in this section may have been updated after the patient was seen, as this information can be updated by other users. Medical History Bipolar 1 disorder Cholecystectomy planned Angina pectoris Hypertension Coronary artery disease Tobacco use COPD (chronic obstructive pulmonary disease) Hyperlipidemia History of stroke in adulthood Arthritis Surgical History Hx of eye surgery Hx of bladder repair surgery History of total replacement of left ankle Family History Diabetes Heart attack Cancer Hypertension Social History Smoking Status: Current every day smoker tobacco type: cigarettes packs per day: 1 alcohol intake: never substance use type: denies use current occupational status: retired Travel in the last 8 weeks: None household members: spouse housing: other caffeine: Yes Have you lived/traveled outside [place] in past 30 days?: No Contact w/someone who lives/traveled outside [place] past 30 days?: No Exposure to someone with infectious disease in past 14 days?: No Do you have a fever (greater than 100.4 F or 38 C)?: No Have you tested positive for COVID-19: No Exposed to someone with COVID-19 in past 14 days?: No Do you have a sore throat?: No Do you have a cough?: No Do you have any weakness?: No Do you have any diarrhea?: No Are you experiencing any unusual bleeding?: No Do you have any muscle aches/pain?: No Do you have any abdominal pain?: No Are you experiencing loss of taste or smell?: No Other Medical History Have you received the Flu Vaccine for this season: No Have you received the Pneumonia Vaccine: No ROS Obtained: Yes other As per HPI Physical Exam General General appearance: alert and in no apparent distress Head Head exam: atraumatic and normocephalic Eye Eye exam: Present normal appearance Neck Neck exam: Present normal inspection Chest Chest inspection: Present normal inspection and symmetric chest wall rise Respiratory Respiratory exam: Present normal lung sounds bilaterally; Absent respiratory distress Cardiovascular Cardiovascular exam: Present regular rate and normal rhythm Abdominal Exam Abdominal exam: Present soft Neurological Exam Neurological exam: Present alert and oriented X3 Psychiatric Psychiatric exam: Present normal affect and normal mood Skin Skin exam: Present warm and dry Medical Decision Making Medical Records Medical records reviewed: Yes I reviewed the patient's medical records. Screening: Per USPSTF and CDC recommendations, given the prevalence of disease in our region, it is our hospital?s policy to screen for HIV and viral Hepatitis for all patients aged 18 and over and those with ongoing risk factors. Thanh Inquiry Pt receiving controlled substance: No Vital Signs: 10/05/24 16:06 10/05/24 16:10 10/05/24 16:30 Temperature 98.3 F Temperature Source Oral Pulse Rate 64 56 L Pulse Rate [Left Radial] 65 Respiratory Rate 20 19 Blood Pressure 108/58 L 84/51 L Blood Pressure [Right Arm] 108/58 L Blood Pressure Mean [Right Arm] 74 02 Sat by Pulse Oximetry 96 95 95 Oxygen Delivery Method Room Air Room Air 10/05/24 16:39 10/05/24 16:59 10/05/24 17:00 Temperature Temperature Source Pulse Rate 58 L 60 61 Pulse Rate [Left Radial] Respiratory Rate 15 15 18 Blood Pressure 85/54 L 101/56 L 95/57 L Blood Pressure [Right Arm] Blood Pressure Mean [Right Arm] 02 Sat by Pulse Oximetry 94 L 94 L 94 L Oxygen Delivery Method Room Air Room Air Room Air 10/05/24 17:30 10/05/24 18:01 10/05/24 18:30 Temperature Temperature Source Pulse Rate 57 L 62 66 Pulse Rate [Left Radial] Respiratory Rate 16 16 16 Blood Pressure 98/53 L 105/55 L 97/59 L Blood Pressure [Right Arm] Blood Pressure Mean [Right Arm] 02 Sat by Pulse Oximetry 94 L 94 L 94 L Oxygen Delivery Method Room Air Room Air Room Air 10/05/24 18:37 10/05/24 19:29 Temperature 98.1 F Temperature Source Pulse Rate 66 Pulse Rate [Left Radial] Respiratory Rate 16 Blood Pressure 97/59 L Blood Pressure [Right Arm] Blood Pressure Mean [Right Arm] 02 Sat by Pulse Oximetry Oxygen Delivery Method Room Air Room Air Lab Data Lab Results 10/05/24 16:11: WBC 8.7, RBC 4.04 L, Hgb 12.7, Hct 38.9, MCV 96.3, MCH 31.4 H, MCHC 32.6, RDW 13.3, Plt Count 378, MPV 9.0, Neut % (Auto) 60.5, Lymph % (Auto) 25.7, Gregory % (Auto) 11.0 H, Eos % (Auto) 1.8, Baso % (Auto) 0.5, Neut # (Auto) 5.3, Lymph # (Auto) 2.2, Gregory # (Auto) 1.0, Eos # (Auto) 0.2, Baso # (Auto) 0.0, Sodium 132 L, Potassium 4.2, Chloride 100, Carbon Dioxide 23, Anion Gap 13.2, B UN 28 H, Creatinine 2.50 H, Estimated Creat Clear 20, Estimated GFR 19 L*, Est GFR ( Amer) 23 L, Glucose 99, Calcium 9.0, Magnesium 1.6, Total Bilirubin 0.5, AST 29, ALT 14, Alkaline Phosphatase 127 H, Total Creatine Kinase 29 L, Troponin I < 0.01, NT-Pro-B Natriuret Pep 122, Total Protein 7.4, Albumin 4.1, G lobulin 3.3 H, Albumin/Globulin Ratio 1.2, Lipase 73, HCV Ab KATYA w/Rflx PCR Qn Negative, HIV Ag/Ab Combo Qual Negative 10/05/24 16:11 10/05/24 16:11 Orders (Tests/Meds): ED MEDICATIONS Discontinued Medications Generic Name Dose Route Start Last Admin Trade Name Freq PRN Reason Stop Dose Admin Lactated Ringer's 1,000 mls @ 999 mls/hr 10/05/24 16:48 10/05/24 16:55 Lactated Ringer's 1000 Ml Bag IV 10/05/24 17:48 999 mls/hr .Q1H1M ONE Administration ORDERS Category Date Time Status XR chest portable Stat Exams 10/05/24 16:48 Completed BNP [NT Pro Brain Natriuretic Pep.] Stat Lab 10/05/24 16:11 Completed CBC w/Auto Diff [Complete Blood Count Auto Diff] Stat Lab 10/05/24 16:11 Completed CK [Creatine Kinase] Stat Lab 10/05/24 16:11 Completed CMP [Comprehensive Metabolic Panel] Stat Lab 10/05/24 16:11 Completed Complete Blood Count Auto Diff AMLAB Lab 10/06/24 06:00 Ordered Comprehensive Metabolic Panel AMLAB Lab 10/06/24 06:00 Ordered HIV Combo Stat Lab 10/05/24 16:11 Completed Hepatitis C Ab Qual. W/ RFX Stat Lab 10/05/24 16:11 Completed Lipase Stat Lab 10/05/24 16:11 Completed MAG [Magnesium] Stat Lab 10/05/24 16:11 Completed Magnesium AMLAB Lab 10/06/24 06:00 Ordered Troponin I Q3H Lab 10/05/24 16:11 Completed Troponin I Q3H Lab 10/05/24 19:55 Completed Urinalysis and Microscopic Stat Lab 10/05/24 16:49 Ordered Medical Decision Narrative: Patient with history and exam per above presenting for evaluation of generalized weakness Diagnoses considered include electrolyte abnormality, acute kidney injury, pneumonia, occult infectious process, although no clear identifiable infectious symptoms or evidence of overt infection at this time in the setting of hypotension with regular heart rate. Per chart review and on examination, I suspect polypharmacy and deconditioning precipitating decreased p.o. intake and subsequent hypovolemic state. ED workup and treatment included: ED MEDICATIONS Discontinued Medications Generic Name Dose Route Start Last Admin Trade Name Freq PRN Reason Stop Dose Admin Lactated Ringer's 1,000 mls @ 999 mls/hr 10/05/24 16:48 10/05/24 16:55 Lactated Ringer's 1000 Ml Bag IV 10/05/24 17:48 999 mls/hr .Q1H1M ONE Administration ORDERS Category Date Time Status XR chest portable Stat Exams 10/05/24 16:48 Completed BNP [NT Pro Brain Natriuretic Pep.] Stat Lab 10/05/24 16:11 Completed CBC w/Auto Diff [Complete Blood Count Auto Diff] Stat Lab 10/05/24 16:11 Completed CK [Creatine Kinase] Stat Lab 10/05/24 16:11 Completed CMP [Comprehensive Metabolic Panel] Stat Lab 10/05/24 16:11 Completed Complete Blood Count Auto Diff AMLAB Lab 10/06/24 06:00 Ordered Comprehensive Metabolic Panel AMLAB Lab 10/06/24 06:00 Ordered HIV Combo Stat Lab 10/05/24 16:11 Completed Hepatitis C Ab Qual. W/ RFX Stat Lab 10/05/24 16:11 Completed Lipase Stat Lab 10/05/24 16:11 Completed MAG [Magnesium] Stat Lab 10/05/24 16:11 Completed Magnesium AMLAB Lab 10/06/24 06:00 Ordered Troponin I Q3H Lab 10/05/24 16:11 Completed Troponin I Q3H Lab 10/05/24 19:55 Completed Urinalysis and Microscopic Stat Lab 10/05/24 16:49 Ordered Labs were independently interpreted by me, significant for acute kidney injury, sodium 132. Imaging was independently visualized and interpreted by me, significant for no acute findings Please refer to radiology report for full details. Given acute kidney injury and functional decline, patient will benefit from mission for further management. Patient was accepted for admission by hospitalist. Critical Care Critical Care Time Critical Care Time: No
--- NOTE | 2024-10-05 16:48 | XR_ITS ---
PROCEDURE INFORMATION: Exam: XR Chest Exam date and time: 10/05/2024 4:53 PM Age: 74 years old Clinical indication: Other: Acute on chronic SOA, cp TECHNIQUE: Imaging protocol: Radiologic exam of the chest. Views: 1 view. COMPARISON: CT CHEST W CON 04/18/2023 12:47 PM FINDINGS: Lungs: No evidence of acute pulmonary disease or infiltrates Pleural spaces: No large effusion or pneumothorax. Heart/Mediastinum: Stable cardiac and mediastinal contours. Vasculature: There are calcifications of the aortic arch. Bones/joints: No evidence of acute osseous abnormalities within the visualized portions of the thoracic spine and ribs. Osseous structures appear appropriate for patient age. IMPRESSION: No dense parenchymal consolidation, pleural effusion, or pneumothorax.
[2024-10-05 16:55] LABS: Basophils % 0.5 % (0.1-2.0); Eosinophils # 0.2 K/mm3 (0.0-0.4); Eosinophils % 1.8 % (0.1-12.0); Hematocrit 38.9 % (37.0-47.0); Hemoglobin 12.7 g/dL (12.2-16.2); Lymphocytes # 2.2 K/mm3 (0.7-4.5); Lymphocytes % 25.7 % (10-50); Mean Corpuscular HGB Conc 32.6 g/dL (31.8-35.4); Mean Corpuscular Hemoglobin 31.4 pg (27.0-31.2); Mean Corpuscular Volume 96.3 fl (81-99); Neutrophils # 5.3 K/mm3 (1.8-7.8); Neutrophils % 60.5 % (37.0-80.0); Platelet Count 378 K/mm3 (142-424); Red Blood Count 4.04 M/mm3 (4.20-5.40); Red Cell Distribution Width 13.3 % (11.5-17.5); White Blood Count 8.7 K/mm3 (4.8-10.8)
[2024-10-05] MEDS: LACTATED RINGERS 1000ML 1,000 ML 999 ML IV (16:55)
[2024-10-05 17:02] LABS: Lipase 73 U/L (23-300)
[2024-10-05 17:14] LABS: Albumin Level 4.1 g/dl (3.5-5.0); Chloride 100 mmol/L (98-107); Sodium 132 mmol/L (136-145)
[2024-10-05 17:15] LABS: Potassium 4.2 mmoL/L (3.5-5.1)
[2024-10-05 17:17] LABS: Alanine Aminotransferase 14 U/L (12-78); Albumin/Globulin Ratio 1.2 (1.1-1.8); Alkaline Phosphatase 127 U/L (38-126); Anion Gap 13.2 mEq/L (5-15); Aspartate Amino Transferase 29 U/L (14-36); Bilirubin,Total 0.5 mg/dl (0.2-1.3); Blood Urea Nitrogen 28 mg/dl (7-17); Carbon Dioxide 23 mmol/L (22.0-30.0); Creatinine Clearance Estimated 20 mL/min (50-200); Estimated Glomerular Filt Rate 19 ml/min (>60); GFR (African American) 23 ML/MIN (>60); Globulin 3.3 g/dL (1.3-3.2); Total Protein,Serum 7.4 g/dl (6.3-8.2)
[2024-10-05 17:18] LABS: Creatine Kinase 29 U/L (30-135); Glucose 99 mg/dl (74-100); Magnesium 1.6 mg/dl (1.6-2.3)
[2024-10-05 17:25] LABS: Troponin I < 0.01 ng/ml (0.00-0.034)
[2024-10-05 17:42] LABS: HIV Combo NEGATIVE (Negative)
[2024-10-05 17:50] LABS: Hepatitis C Ab Qual. W/ RFX NEGATIVE (Negative)
[2024-10-05 18:11] LABS: NT Pro Brain Natriuretic Pep. 122 pg/mL (0-450)
--- NOTE | 2024-10-05 18:28 | PC.NURSE ---
warehouse checker made aware of bed placement
--- NOTE | 2024-10-05 18:40 | PC.NURSE ---
report called to adolph on second floor
--- NOTE | 2024-10-05 20:09 | PC.NURSE ---
Patient unsure of meds she takes at home, went over med list on file and she was able to tell some, others I based off of external med list. Her list is in her pocket book at home.
[2024-10-05 20:40] LABS: Troponin I < 0.01 ng/ml (0.00-0.034)
--- NOTE | 2024-10-05 23:15 | P.HP_ITS ---
History of Present Illness *Admission Date: 10/05/24 *Reason for visit:: Weakness *History of present illness: The patient is a 74year-old female, with past medical history of bipolar 1, hypertension, coronary artery disease, tobacco dependence, COPD, arthritis, presenting for evaluation after an episode of hypotension noted by home health. She reports several days of nausea and vomiting without abdominal pain, urinary symptoms, medication changes, missed doses, or identifiable exacerbating or alleviating factors. She denies sick contacts, fevers, headache, trauma, or other concerning symptoms. The patient also endorses chronic pain throughout her body for which she takes opiate pain medication and states that she drinks plenty of liquids but acknowledges periods of decreased oral intake. Laboratory studies show hyponatremia (sodium 132 mmol/L), elevated BUN (28 mg/dL), elevated creatinine (2.5 mg/dL), and significantly reduced estimated glomerular filtration rate (eGFR 19 mL/min/1.73m?). Alkaline phosphatase is mildly elevated, but other liver enzymes and lipase are within normal limits. NT-proBNP is 122 pg/mL, suggesting no significant cardiac strain. Troponin is negative, and inflammatory markers, including white blood cell count and neutrophil percentage, are unremarkable. Given her symptoms, history of decreased oral intake, and laboratory findings, she will require evaluation and management for acute kidney injury, likely secondary to volume depletion, with rule out consideration of other potential contributing factors such as chronic kidney disease or systemic illness. [facility] Disclaimer: The information contained in this section may have been updated after the patient was seen, as this information can be updated by other users. Medical History (Updated 10/06/24 @ 03:26 by Twan Garcia APRN) Bipolar 1 disorder Cholecystectomy planned Angina pectoris Hypertension Coronary artery disease Tobacco use COPD (chronic obstructive pulmonary disease) Hyperlipidemia History of stroke in adulthood Arthritis Surgical History Hx of eye surgery Hx of bladder repair surgery History of total replacement of left ankle Family History Other Cancer Diabetes Heart attack Hypertension Social History Smoking Status: Current every day smoker tobacco type: cigarettes packs per day: 1 alcohol intake: never substance use type: denies use current occupational status: retired Travel in the last 8 weeks: None household members: spouse housing: other caffeine: Yes Have you lived/traveled outside [place] in past 30 days?: No Contact w/someone who lives/traveled outside US past 30 days?: No Exposure to someone with infectious disease in past 14 days?: No Do you have a fever (greater than 100.4 F or 38 C)?: No Have you tested positive for COVID-19: No Exposed to someone with COVID-19 in past 14 days?: No Do you have a sore throat?: No Do you have a cough?: No Do you have any weakness?: No Do you have any diarrhea?: No Are you experiencing any unusual bleeding?: No Do you have any muscle aches/pain?: No Do you have any abdominal pain?: No Are you experiencing loss of taste or smell?: No Other Medical History Have you received the Flu Vaccine for this season: Yes Have you received the Pneumonia Vaccine: Yes Review of Systems Review of Systems Review of systems:: pertinent systems reviewed and negative unless documented below Review of systems (narrative): Review of Systems: General: No recent weight changes, no fever, no sleep disturbances Respiratory: No cough, no shortness of air, no recurring pulmonary infections Cardiovascular/peripheral vascular: No chest pain, no palpitations, no edema, no shortness of breath Gastrointestinal: No new onset incontinence, normal bowel movements reported, episodes of nausea and vomiting Genitourinary: No new onset incontinence Musculoskeletal: Mid back pain, neck pain Psychiatric: [Normal mood/affect] Neurological: [Denies weakness in extremities], [denies balance issues] Meds Home Medications and Allergies Home Medications ?Medication ?Instructions ?Recorded ?Confirmed ?Type aspirin 81 mg tablet,delayed 81 mg PO DAILY 03/25/20 10/05/24 History release (Adult Aspirin Regimen) diltiazem HCl 240 mg 240 mg PO DAILY #90 caps 12/26/23 10/05/24 Rx capsule,extended release 24 hr naproxen 500 mg tablet (Naprosyn) 500 mg PO BID #60 tabs 08/27/24 10/05/24 Rx lorazepam 1 mg tablet 0.5 mg (1/2 x 1 mg) PO TID Anxiety 08/31/24 10/05/24 Rx 30 days #45 tabs oxycodone-acetaminophen 10 mg-325 1 tab PO Q6H PRN pain #120 tabs 09/28/24 10/05/24 Rx mg tablet (Percocet) methocarbamol 500 mg tablet 500 mg PO TID Pain #90 tabs 10/03/24 10/05/24 Rx clopidogrel 75 mg tablet 75 mg PO DAILY 10/05/24 10/05/24 History fluoxetine 20 mg capsule 20 mg PO DAILY 10/05/24 10/05/24 History omeprazole 40 mg capsule,delayed 40 mg PO DAILY 10/05/24 10/05/24 History release ropinirole 1 mg tablet 1 mg PO DAILY 10/05/24 10/05/24 History New Prescriptions to Start Prescriptions: Allergies Allergy/AdvReac Type Severity Reaction Status Date / Time methylprednisolone AdvReac Severe Anaphylaxis Verified 10/05/24 18:34 Exam Data for Last 24 hours Vital signs and Labs for Last 24 Hours: Temp Pulse Resp BP Pulse Ox O2 Del Method 97.7 F 68 12 112/65 94 L Room Air, Nasal Cannula 10/05/24 21:04 10/05/24 21:04 10/05/24 21:04 10/05/24 21:04 10/05/24 21:04 10/06/24 01:00 Laboratory Results - last 24 hr 10/05/24 16:11: WBC 8.7, RBC 4.04 L, Hgb 12.7, Hct 38.9, MCV 96.3, MCH 31.4 H, MCHC 32.6, RDW 13.3, Plt Count 378, MPV 9.0, Neut % (Auto) 60.5, Lymph % (Auto) 25.7, [place] % (Auto) 11.0 H, Eos % (Auto) 1.8, Baso % (Auto) 0.5, Neut # (Auto) 5.3, Lymph # (Auto) 2.2, [place] # (Auto) 1.0, Eos # (Auto) 0.2, Baso # (Auto) 0.0, Sodium 132 L, Potassium 4.2, Chloride 100, Carbon Dioxide 23, Anion Gap 13.2, BUN 28 H, Creatinine 2.50 H, Estimated Creat Clear 20, Estimated GFR 19 L*, Est GFR ( Amer) 23 L, Glucose 99, Calcium 9.0, Magnesium 1.6, Total Bilirubin 0.5, AST 29, ALT 14, Alkaline Phosphatase 127 H, Total Creatine Kinase 29 L, Troponin I < 0.01, NT-Pro-B Natriuret Pep 122, Total Protein 7.4, Albumin 4.1, Globulin 3.3 H, Albumin/Globulin Ratio 1.2, Lipase 73, HCV Ab KATYA w/Rflx PCR Qn Negative, HIV Ag/Ab Combo Qual Negative 10/05/24 19:55: Troponin I < 0.01 I & O for Last 24 hours: Intake & Output 10/03/24 10/04/24 10/05/24 10/06/24 23:59 23:59 23:59 23:59 Intake Total 1025 / 1025 Balance 1025 / 1025 Weight 66.179 kg Constitutional Constitutional: no acute distress *Routine HEENT Exam Head: Present normocephalic Eye: Present EOMI and PERRL ENT: Present mucous membranes moist *Routine Neck Exam Neck: Present supple; Absent lymphadenopathy *Routine Respiratory Exam Respiratory: Present CTA bilaterally *Routine Cardiovascular Exam Cardiovascular: Present RRR *Routine Abdominal Exam Abdominal: Present soft and normoactive bowel sounds; Absent tenderness *Routine Rectal Exam Rectal:: deferred *Routine Genitalia Exam Genitalia:: deferred *Routine Extremities Exam Extremities: Absent cyanosis, clubbing or edema *Routine Skin Exam Skin: Present warm; Absent rash *Routine Neurological Exam Neurological: Present alert and oriented X3 H&P: Result Imaging and Cardiology Chest x-ray: Status: image reviewed by me Assessment and Plan *Assessment and plan (1) MASON (acute kidney injury): Status: Acute Category: Medical Code(s): N17.9 - Acute kidney failure, unspecified Plan: Likely prerenal (2) Hypovolemia: Status: Acute Category: Medical Code(s): E86.1 - Hypovolemia (3) Nausea and vomiting: Status: Acute Category: Medical Code(s): R11.2 - Nausea with vomiting, unspecified Plan The patient is a 74-year-old female presenting after an episode of hypotension with several days of nausea and vomiting in the absence of fever, abdominal pain, or urinary symptoms. Laboratory studies indicate acute kidney injury (MASON) with hyponatremia, elevated BUN, creatinine, and significantly reduced eGFR, suggesting prerenal azotemia likely due to volume depletion from decreased oral intake. Although NT-proBNP is not elevated, hypotension and nausea necessitate monitoring for other possible contributors to MASON, including chronic kidney disease, underlying systemic illness, or medication effects. Given the patient?s history of chronic pain and intermittent reduced oral intake, admission is warranted for close monitoring, intravenous hydration, and further diagnostic evaluation. Acute kidney injury: * Received 1 L LR in emergency room * Administer LR at 50 an hour continuous x 1 L to address suspected volume depletion. * Monitor renal function daily * Avoid nephrotoxic medications and closely evaluate home medication regimen for potential contributing factors. * Baseline creatinine 1.2, BUN and creatinine on presentation of 28 and 2.5. Sodium low at 132. Repeat CBC, CMP, magnesium ordered for the morning Hyponatremia: * Mild * Correct sodium gradually with IV fluids to prevent osmotic demyelination syndrome. * Will repeat BMP daily Hypotension: * Continue to monitor blood pressure closely. * Address volume status with IV fluids and assess for other potential causes if hypotension persists. * Request orthostatic blood pressure Nausea and vomiting: * Administer 4 mg IV Zofran as needed every 8 * Monitor for further episodes and consider abdominal imaging or gastrointestinal consultation if symptoms persist. Chronic pain: * Evaluate current pain management strategy to optimize control without exacer bating dehydration or nausea. * Continue home pain medications as requested, monitor for signs of hypotension or sedation Dehydration: * Continue IV fluid regimen as previously stated * Encourage oral intake * Provide education regarding signs and symptoms of dehydration and when to seek medical attention. Tobacco dependence: * Initiate nicotine replacement therapy with a nicotine patch to manage withdrawal symptoms during hospitalization. * Provide smoking cessation counseling and resources. Disposition: * Discussed patient with ER physician requesting admission for acute kidney injury and mild hyponatremia along with orthostatic hypotension., medicine agreed to admit * Reviewed all pertinent labs and imaging * to the medical floor for close monitoring of renal function, serum electrolytes, fluid status, and response to therapy. * Coordinate follow-up with nephrology for further evaluation of kidney function if no significant improvement occurs. * Discussed plan of care with patient which she agrees * Patient CODE STATUS DNR/DNI * DVT prophylaxis SCDs hold Lovenox due to MASON, consider subcu heparin if extended hospitalization Rounded on patient after nurse practitioner. Personally examined and interviewed patient. Agree with exam findings and care plan as documented.
[2024-10-05] MEDS: LACTATED RINGERS 1000ML 1,000 ML 50 ML IV (23:54)
[2024-10-05] MEDS: OXYCODONE 10MG W/APAP 325MG TABLET 1 EACH PO (23:54)
[2024-10-06] MEDS: NICOTINE 21MG/24HR PATCH 21 MG TD ×2 (00:09→09:16)
[2024-10-06] MEDS: LORazepam 1MG TABLET 0.5 MG PO ×2 (00:59→09:25)
[2024-10-06] MEDS: ACETAMINOPHEN 325MG TAB 650 MG PO (03:48)
[2024-10-06 04:00] VITALS: BP 111/59; PULSE 73; RESP 18; TEMP 36.8; O2SAT 93; BMI 24.3
[2024-10-06 06:01] LABS: Microscopic, Urine URINE MICROSCOPIC (MICROSCOPIC)
[2024-10-06 06:03] LABS: Appearance,Urine CLEAR (Clear); Bilirubin,Urine Negative (Negative); Blood, Urine TRACE-I (Negative); Color,Urine YELLOW (Yellow); Glucose,Urine (UA) Negative (Negative); Ketones,Urine Negative (Negative); Leukocyte Esterase,Urine TRACE (Negative); Nitrate,Urine Negative (Negative); Protein,Urine Negative (Negative); Urobilinogen,Urine 0.2 EU/dl (0.2)
--- NOTE | 2024-10-06 06:10 | PC.NURSE ---
Pt. admitted at change of shift last night. Pt. is alert and orientated x 4. Pt. was seen the the ED with SOA and chest pains. admitted with MASON and dehydration. Pt. c/o generalized pain especially her back. Pt. medicated with her normal pain meds per MAR. . Later pt. c/o headache and got medicated with Tylenol and fell back to sleep. Pt. has a congested cough. Pt. on room air. Pt. getting IVF for hydration. VSS, personal items and call griffiths in reach.
[2024-10-06 06:18] LABS: WBC,Urine Occasional #/hpf (0-3)
[2024-10-06 06:19] LABS: Bacteria,Urine Trace /lpf; Squamous Epithelial Cell,Urine Occasional #/hpf (0-5)
[2024-10-06 06:56] VITALS: BP 100/48; BP 102/67; BP 81/54; PULSE 74; PULSE 75; PULSE 78
[2024-10-06 07:18] LABS: Chloride 103 mmol/L (98-107)
[2024-10-06 07:19] LABS: Albumin Level 3.4 g/dl (3.5-5.0); Potassium 4.7 mmoL/L (3.5-5.1); Sodium 131 mmol/L (136-145)
[2024-10-06 07:21] LABS: Anion Gap 10.7 mEq/L (5-15); Blood Urea Nitrogen 29 mg/dl (7-17); Carbon Dioxide 22 mmol/L (22.0-30.0); Creatinine Clearance Estimated 27 mL/min (50-200); Estimated Glomerular Filt Rate 26 ml/min (>60); GFR (African American) 31 ML/MIN (>60)
[2024-10-06 07:22] LABS: Alanine Aminotransferase 15 U/L (12-78); Albumin/Globulin Ratio 1.1 (1.1-1.8); Alkaline Phosphatase 112 U/L (38-126); Aspartate Amino Transferase 24 U/L (14-36); Bilirubin,Total 0.4 mg/dl (0.2-1.3); Calcium 8.8 mg/dl (8.4-10.2); Glucose 94 mg/dl (74-100); Magnesium 1.6 mg/dl (1.6-2.3); Total Protein,Serum 6.4 g/dl (6.3-8.2)
[2024-10-06 07:27] LABS: Basophils % 0.5 % (0.1-2.0); Eosinophils # 0.2 K/mm3 (0.0-0.4); Eosinophils % 2.8 % (0.1-12.0); Hematocrit 33.3 % (37.0-47.0); Lymphocytes # 2.4 K/mm3 (0.7-4.5); Lymphocytes % 28.6 % (10-50); Mean Corpuscular HGB Conc 33.3 g/dL (31.8-35.4); Mean Corpuscular Hemoglobin 32.1 pg (27.0-31.2); Mean Corpuscular Volume 96.2 fl (81-99); Mean Platelet Volume 9.5 fl (7.4-10.4); Monocytes # 0.8 K/mm3 (0.1-1.0); Monocytes % 9.8 % (1.7-9.3); Neutrophils # 4.8 K/mm3 (1.8-7.8); Neutrophils % 57.8 % (37.0-80.0); Platelet Count 271 K/mm3 (142-424); Red Blood Count 3.46 M/mm3 (4.20-5.40); Red Cell Distribution Width 13.3 % (11.5-17.5); White Blood Count 8.2 K/mm3 (4.8-10.8)
[2024-10-06 07:30] LABS: Chol/HDL Ratio 4.3 (1-3.5); Cholesterol 175 mg/dl (140-200); HDL Cholesterol 41 mg/dl (40-60); Triglycerides 115 mg/dl (30-150); VLDL Cholesterol 23 mg/dL (0-40)
[2024-10-06 08:00] VITALS: BP 104/57; PULSE 74; RESP 18; TEMP 36.8; O2SAT 95
[2024-10-06] MEDS: FLUOXETINE 20MG CAPSULE 20 MG PO (09:16)
[2024-10-06] MEDS: ASPIRIN EC 81MG TABLET 81 MG PO (09:16)
[2024-10-06] MEDS: NYSTATIN SUSP 500,000 UNITS/5ML UDC 500000 UNIT PO (09:16)
[2024-10-06] MEDS: CLOPIDOGREL 75MG TAB 75 MG PO (09:16)
[2024-10-06] MEDS: METHOCARBAMOL 500MG TABLET 500 MG PO ×3 (09:16→20:58)
[2024-10-06] MEDS: ROPINIROLE 1MG TABLET 1 MG PO (09:16)
--- NOTE | 2024-10-06 09:56 | HMH.PHAINT1 ---
Pharmacy Intervention Comments: MEDICATION RECONCILIATION COMPLETED ON PATIENT USING EXTERNAL FILL HISTORY FROM PHARMACY. -BHAVNA GARCIA, TEED
[2024-10-06 10:18] VITALS: BP 116/55; PULSE 74; RESP 18; TEMP 36.6; O2SAT 93
[2024-10-06] MEDS: RANOLAZINE 500MG ER TABLET 500 MG PO ×2 (11:15→20:58)
[2024-10-06] MEDS: ONDANSETRON 4MG/2ML VIAL 4 MG IV (11:17)
--- NOTE | 2024-10-06 13:21 | P.PN_ITS ---
Subjective *Date: 10/06/24 *Time: 13:21 Interval history: Patient feeling somewhat better today but still weak. Orthostatics positive on exam. Stable on room air. Worked with therapy, stable to discharge home when medically appropriate. Tolerating p.o. intake. Medical Exam Vital signs and Labs for Last 24 Hours: Vital Signs Temp Pulse Pulse Pulse Pulse Pulse Resp 10/06/24 11:00 10/06/24 10:18 97.8 F 74 18 10/06/24 09:00 10/06/24 08:00 98.3 F 74 18 10/06/24 06:56 10/06/24 06:56 74 75 78 10/06/24 05:00 10/06/24 04:00 98.2 F 73 18 10/06/24 03:00 10/06/24 01:00 10/05/24 23:00 10/05/24 21:04 97.7 F 68 12 10/05/24 21:00 10/05/24 20:00 10/05/24 19:29 98.1 F 66 16 10/05/24 18:37 10/05/24 18:30 66 16 10/05/24 18:01 62 16 10/05/24 17:30 57 L 16 10/05/24 17:00 61 18 10/05/24 16:59 60 15 10/05/24 16:39 58 L 15 10/05/24 16:30 56 L 19 10/05/24 16:10 64 10/05/24 16:06 98.3 F 65 20 BP BP BP BP BP Pulse Ox O2 Del Method 10/06/24 11:00 Room Air 10/06/24 10:18 116/55 L 93 L Room Air 10/06/24 09:00 Room Air 10/06/24 08:00 104/57 L 95 Room Air 10/06/24 06:56 Room Air 10/06/24 06:56 100/48 L 102/67 L 81/54 L 10/06/24 05:00 Room Air 10/06/24 04:00 111/59 L 93 L Room Air 10/06/24 03:00 Room Air 10/06/24 01:00 Room Air, Nasal Cannula 10/05/24 23:00 Room Air 10/05/24 21:04 112/65 94 L Room Air 10/05/24 21:00 Room Air 10/05/24 20:00 Room Air 10/05/24 19:29 97/59 L Room Air 10/05/24 18:37 Room Air 10/05/24 18:30 97/59 L 94 L Room Air 10/05/24 18:01 105/55 L 94 L Room Air 10/05/24 17:30 98/53 L 94 L Room Air 10/05/24 17:00 95/57 L 94 L Room Air 10/05/24 16:59 101/56 L 94 L Room Air 10/05/24 16:39 85/54 L 94 L Room Air 10/05/24 16:30 84/51 L 95 Room Air 10/05/24 16:10 108/58 L 95 Room Air 10/05/24 16:06 108/58 L 96 Intake and Output 10/05/24 10/06/24 10/06/24 23:59 07:59 15:59 Intake Total 1195 / 1395 200 / 1395 Output Total 0 / 0 0 / 0 Balance 1195 / 1395 200 / 1395 Intake: Intake, Oral Amount 200 / 200 Intake, Total IV Amount 1195 / 1195 Lactated Ringers 1000ML 1,000 195 / 195 ml @ 50 mls/hr IV .Q20H ONE Rx# :[id number] Lactated Ringers 1000ML 1,000 1000 / 1000 ml @ 999 mls/hr IV .Q1H1M ONE Rx#:[id number] Output: Output, Urine Amount 0 / 0 0 / 0 Other: Number of Unmeasured Voids 1 1 Weight 66.179 kg 66.179 kg Patient Weight 10/06/24 23:59 Weight 66.179 kg Laboratory Results - last 24 hr 10/05/24 16:11: WBC 8.7, RBC 4.04 L, Hgb 12.7, Hct 38.9, MCV 96.3, MCH 31.4 H, MCHC 32.6, RDW 13.3, Plt Count 378, MPV 9.0, Neut % (Auto) 60.5, Lymph % (Auto) 25.7, [place] % (Auto) 11.0 H, Eos % (Auto) 1.8, Baso % (Auto) 0.5, Neut # (Auto) 5.3, Lymph # (Auto) 2.2, [place] # (Auto) 1.0, Eos # (Auto) 0.2, Baso # (Auto) 0.0, Sodium 132 L, Potassium 4.2, Chloride 100, Carbon Dioxide 23, Anion Gap 13.2, BUN 28 H, Creatinine 2.50 H, Estimated Creat Clear 20, Estimated GFR 19 L*, Est GFR ( Amer) 23 L, Glucose 99, Calcium 9.0, Magnesium 1.6, Total Bilirubin 0.5, AST 29, ALT 14, Alkaline Phosphatase 127 H, Total Creatine Kinase 29 L, Troponin I < 0.01, NT-Pro-B Natriuret Pep 122, Total Protein 7.4, Albumin 4.1, Globulin 3.3 H, Albumin/Globulin Ratio 1.2, Lipase 73, HCV Ab KATYA w/Rflx PCR Qn Negative, HIV Ag/Ab Combo Qual Negative 10/05/24 19:55: Troponin I < 0.01 10/06/24 05:53: Urine Color Yellow, Urine Appearance Clear, Urine pH 6.0, Ur Specific [place] 1.010, Urine Protein Negative, Urine Glucose (UA) Negative, Urine Ketones Negative, Urine Blood Trace-i, Urine Nitrate Negative, Urine Bilirubin Negative, Urine Urobilinogen 0.2, Ur Leukocyte Esterase Trace, Urine RBC 3-5, Urine WBC Occasional, Ur Squamous Epith Cells Occasional, Urine Bacteria Trace 10/06/24 06:35: WBC 8.2, RBC 3.46 L, Hgb 11.0 L D, Hct 33.3 L, MCV 96.2, MCH 32.1 H, MCHC 33.3, RDW 13.3, Plt Count 271 D, MPV 9.5, Neut % (Auto) 57.8, Lymph % (Auto) 28.6, [place] % (Auto) 9.8 H, Eos % (Auto) 2.8, Baso % (Auto) 0.5, Neut # (Auto) 4.8, Lymph # (Auto) 2.4, [place] # (Auto) 0.8, Eos # (Auto) 0.2, Baso # (Auto) 0.0, Sodium 131 L, Potassium 4.7, Chloride 103, Carbon Dioxide 22, Anion Gap 10.7, BUN 29 H, Creatinine 1.90 H D, Estimated Creat Clear 27, Estimated GFR 26 L, Est GFR ( Amer) 31 L D, Glucose 94, Calcium 8.8, Magnesium 1.6, Total Bilirubin 0.4, AST 24, ALT 15, Alkaline Phosphatase 112, Total Protein 6.4, Albumin 3.4 L D, Globulin 3.0, Albumin/Globulin Ratio 1.1, Triglycerides 115, Cholesterol 175, LDL Cholesterol Direct 89.90 L, VLDL Cholesterol 23, HDL Cholesterol 41, Cholesterol/HDL Ratio 4.3 H I & O for Labs for Last 24 Hours: Intake & Output 10/03/24 10/04/24 10/05/24 10/06/24 23:59 23:59 23:59 23:59 Intake Total 1395 / 1395 Output Total 0 / 0 Balance 1395 / 1395 Weight 66.179 kg 66.179 kg Constitutional: Present no acute distress, chronically ill appearing and cooperative Head: Present atraumatic and normocephalic ENT: Present normal exam Respiratory: Present prolonged expiratory phase, rhonchi (Clear with cough) and normal respiratory effort; Absent respiratory distress, stridor, wheezes or crackles Cardiac: Present Reg Rate and Rhythm GI: Present soft and normal bowel sounds; Absent distention or tenderness Extremities: Present normal inspection and full ROM Skin: Present intact; Absent erythema Neuro: Present Grossly Intact, alert, awake, oriented x 3 and moves all extremities Assessment and Plan *Assessment and plan (1) MASON (acute kidney injury): Status: Acute Category: Medical Code(s): N17.9 - Acute kidney failure, unspecified (2) Hypovolemia: Status: Acute Category: Medical Code(s): E86.1 - Hypovolemia (3) Nausea and vomiting: Status: Acute Category: Medical Code(s): R11.2 - Nausea with vomiting, unspecified Plan The patient is a 74-year-old female presenting after an episode of hypotension with several days of nausea and vomiting in the absence of fever, abdominal pain, or urinary symptoms. Laboratory studies indicate acute kidney injury (MASON) with hyponatremia, elevated BUN, creatinine, and significantly reduced eGFR, suggesting prerenal azotemia likely due to volume depletion from decreased oral intake. Although NT-proBNP is not elevated, hypotension and nausea necessitate monitoring for other possible contributors to MASON, including chronic kidney disease, underlying systemic illness, or medication effects. Given the patient?s history of chronic pain and intermittent reduced oral intake, admission is warranted for close monitoring, intravenous hydration, and further diagnostic evaluation. Doing better this morning but still orthostatic. Monitor improvement in blood pressure and sodium and kidney function. Holding home diltiazem while patient is hypotensive. Anticipate discharge tomorrow. Problems addressed as follows: Acute kidney injury: * Showing improvement, BUN 29, creatinine 1.9, baseline 1.2. Down from 2.5 on presentation. Avoid nephrotoxic medications and closely evaluate home medication regimen for potential contributing factors. Repeat CBC, CMP, magnesium ordered for the morning Hyponatremia: * Stable, sodium 131, chloride 103. Repeat CBC, CMP, magnesium ordered for the morning. Magnesium 1.6, replacing with protocol. Potassium 4.7. * Continue maintenance IV fluids with NS at 100 cc an hour today. Hypotension: Dehydration: * Continue to monitor blood pressure closely. Orthostatics remain positive this morning. Monitor for 24 more hours. If stable by morning, discharge home. * Discontinue diltiazem. Monitor blood pressure closely Nausea and vomiting: * Administer 4 mg IV Zofran as needed every 8 hours as needed. No further vomiting since admission. Chronic pain: * Continue oxycodone 10 mg every 6 hours as needed based on home regimen. Monitor for toxicity in combination with home benzo use Tobacco dependence: * Initiate nicotine replacement therapy with a nicotine patch to manage withdrawal symptoms during hospitalization. * Provide smoking cessation counseling and resources. DNR Regular diet
--- NOTE | 2024-10-06 14:25 | HMH.PTEV ---
Physical Therapy Evaluation Rehab PT IP Evaluation Start: 10/05/24 23:01 Freq: ONCE Status: Active Protocol: Document 10/06/24 14:11 PDESEROUX (Rec: 10/06/24 14:25 PDESEROUX [id number]) Subjective/History History History Pt. is a 74 year old Female who presents to [facility] Inpatient Setting w/ c/o progressively worsening nausea, vomit, and weakness for the last several days. Pt. vocalizes she was just getting weaker making it harder for her to get around her home environment. Pt. reports she lives in a 1-story home w/ the assistance of her 2 family members. Pt. reports she ambulates I hold onto my couch IND. at home, however, intermittently uses assistance from family members she lives with. Pt.'s oldest son was also present in pt.'s room at the time of the initial evaluation where he informed Physical Therapy that himself and his Girlfriend visits his mother 3-4 days a week to assist w/ ADLs. Pt. reports owning medical equipment including walker. PMH includes Bipolar 1 disorder, Cholecystectomy planned, Angina pectoris, Hypertension, Coronary artery disease, Tobacco use, COPD ( chronic obstructive pulmonary disease), Hyperlipidemia, History of stroke in adulthood , and Arthritis. Subjective Subjective Pt. denies reports of P! this date. Pt. vocalizes eagerness to return to home environment. Pt. vocalizes 3 times to Physical Therapist to refrain from assisting pt. 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 Physical Therapist educated pt. of components of being safe w/ pt. for overall fall risk reduction. New diagnosis of cancer in past 12 No months? Rehab PT IP Eval Objective Appearance Patient Behavior Patient Baseline Patient Orientation Patient Baseline Difficulty following instructions none Speech Pattern Patient Baseline Ambulation Patient Able to Ambulate Yes Ambulation Observation IP General Gait Pattern Observation Shuffling Step Ambulation Distance (feet) 10 Ambulation Assistive Device None Ambulation Ability Contact Guard/Hand Hold Balance Ability to Arise Able, uses arms to help Sitting Balance Steady, safe Standing Balance Steady, wide stance Dynamic Sitting Balance Ability Good Dynamic Standing Balance Ability Fair Transfers Bed Transfer Ability Supervision/Stand by Chair Transfer Ability Supervision/Stand by Sit to Stand Bed Transfer Ability Supervision/Stand by Sit to Stand Chair Transfer Ability Supervision/Stand by ROM RLE PT ROM Status WFL LLE PT ROM Status WFL MMT RLE PT MMT WFL LLE PT MMT WFL Rehab PT IP prob,goals,plan Problems Date of Evaluation: 10/06/24 Rehab Potential Rehab Potential Innapropriate for Skilled Therapy Discharge Plan PT Discharge Plan Upon discharge from [facility], once deemed medically stable per MD , pt. is appropriate to return to home environment secondary to having the assistance from multiple and capable family members. Pt. was instructed per Physical Therapist to use AD upon ambulation and transitional movements for fall risk reduction, or to obtain order from MD for an FWW. Pt. would receive further benefit in BLE muscle strength and endurance, reduce fall risk at home, and improve pt.'s current ADL baseline at home from a skilled Home Health or Outpatient Physical Therapy order. Eval Complexity Eval Charge Codes 05862 - Low Complexity PHYSICIAN CERTIFICATION: I certify the specified therapy services for Heidi Arguelles are required, authorized, and reviewed every 30 days.
[2024-10-06] MEDS: MAGNESIUM SULFATE IN WATER 2 GM/50 ML PIGGYBACK IV ×2 (15:20→16:21)
--- NOTE | 2024-10-06 15:22 | PC.NURSE ---
Spoke with Cait at [facility]. Okay to run LR and mag sulfate together.
[2024-10-06 16:00] VITALS: BP 114/61; PULSE 79; RESP 17; TEMP 36.8; O2SAT 91
[2024-10-06 20:00] VITALS: BP 124/61; PULSE 84; RESP 16; TEMP 37.1; O2SAT 96
[2024-10-06] MEDS: PANTOPRAZOLE 40MG TABLET 40 MG PO (20:58)
[2024-10-06] MEDS: OXYCODONE 10MG W/APAP 325MG TABLET 1 EACH PO (20:59)
[2024-10-07 04:00] VITALS: BP 120/61; PULSE 79; RESP 17; TEMP 36.9; O2SAT 92; BMI 22.3
[2024-10-07] MEDS: OXYCODONE 10MG W/APAP 325MG TABLET 1 EACH PO (05:35)
[2024-10-07 07:00] LABS: Basophils % 0.6 % (0.1-2.0); Eosinophils # 0.2 K/mm3 (0.0-0.4); Eosinophils % 2.5 % (0.1-12.0); Hematocrit 35.3 % (37.0-47.0); Hemoglobin 11.8 g/dL (12.2-16.2); Lymphocytes # 1.9 K/mm3 (0.7-4.5); Lymphocytes % 26.6 % (10-50); Mean Corpuscular HGB Conc 33.4 g/dL (31.8-35.4); Mean Corpuscular Hemoglobin 32.2 pg (27.0-31.2); Mean Corpuscular Volume 96.2 fl (81-99); Mean Platelet Volume 9.1 fl (7.4-10.4); Monocytes # 0.7 K/mm3 (0.1-1.0); Monocytes % 10.1 % (1.7-9.3); Neutrophils # 4.3 K/mm3 (1.8-7.8); Neutrophils % 59.9 % (37.0-80.0); Platelet Count 318 K/mm3 (142-424); Red Blood Count 3.67 M/mm3 (4.20-5.40); Red Cell Distribution Width 13.1 % (11.5-17.5); White Blood Count 7.2 K/mm3 (4.8-10.8)
[2024-10-07 07:13] LABS: Albumin Level 3.6 g/dl (3.5-5.0); Chloride 103 mmol/L (98-107); Potassium 5.2 mmoL/L (3.5-5.1); Sodium 133 mmol/L (136-145)
[2024-10-07 07:16] LABS: Alanine Aminotransferase 14 U/L (12-78); Albumin/Globulin Ratio 1.2 (1.1-1.8); Alkaline Phosphatase 124 U/L (38-126); Anion Gap 10.2 mEq/L (5-15); Aspartate Amino Transferase 23 U/L (14-36); Bilirubin,Total 0.3 mg/dl (0.2-1.3); Blood Urea Nitrogen 25 mg/dl (7-17); Carbon Dioxide 25 mmol/L (22.0-30.0); Creatinine Clearance Estimated 33 mL/min (50-200); Estimated Glomerular Filt Rate 31 ml/min (>60); GFR (African American) 38 ML/MIN (>60); Glucose 93 mg/dl (74-100); Total Protein,Serum 6.6 g/dl (6.3-8.2)
[2024-10-07 07:17] LABS: Magnesium 2.4 mg/dl (1.6-2.3)
--- NOTE | 2024-10-07 07:27 | P.DS_ITS ---
General Admission date:: 10/05/24 Discharge date: 10/07/24 HPI HPI HPI: The patient is a 74year-old female, with past medical history of bipolar 1, hypertension, coronary artery disease, tobacco dependence, COPD, arthritis, presenting for evaluation after an episode of hypotension noted by home health. She reports several days of nausea and vomiting without abdominal pain, urinary symptoms, medication changes, missed doses, or identifiable exacerbating or alleviating factors. She denies sick contacts, fevers, headache, trauma, or other concerning symptoms. The patient also endorses chronic pain throughout her body for which she takes opiate pain medication and states that she drinks plenty of liquids but acknowledges periods of decreased oral intake. Laboratory studies show hyponatremia (sodium 132 mmol/L), elevated BUN (28 mg/dL), elevated creatinine (2.5 mg/dL), and significantly reduced estimated glomerular filtration rate (eGFR 19 mL/min/1.73m?). Alkaline phosphatase is mildly elevated, but other liver enzymes and lipase are within normal limits. NT-proBNP is 122 pg/mL, suggesting no significant cardiac strain. Troponin is negative, and inflammatory markers, including white blood cell count and neutrophil percentage, are unremarkable. Given her symptoms, history of decreased oral intake, and laboratory findings, she will require evaluation and management for acute kidney injury, likely secondary to volume depletion, with rule out consideration of other potential contributing factors such as chronic kidney disease or systemic illness. Hospital Course Hospital Course Hospital Course: The patient is a 74-year-old female presenting after an episode of hypotension with several days of nausea and vomiting in the absence of fever, abdominal pain, or urinary symptoms. Laboratory studies indicate acute kidney injury (MASON) with hyponatremia, elevated BUN, creatinine, and significantly reduced eGFR, suggesting prerenal azotemia likely due to volume depletion from decreased oral intake. Although NT-proBNP is not elevated, hypotension and nausea necessitate monitoring for other possible contributors to MASON, including chronic kidney disease, underlying systemic illness, or medication effects. Given the patient?s history of chronic pain and intermittent reduced oral intake, admission is warranted for close monitoring, intravenous hydration, and further diagnostic evaluation. Orthostasis resolved. Dizziness resolved. Tolerating p.o. intake. Given improvement in condition, will discharge home. Adjustments made to medications until follow-up with PCP. Problems addressed as follows: Acute kidney injury: * Present on admission. Showed improvement during admission. Creatinine improved to 1.6, baseline is 1.2. Down from 2.5 on admission. Responded well to IV fluids. Would benefit from repeat CMP in 1 to 2 weeks as an outpatient. * Hyponatremia: * 131 on admission, improved to 133 with chloride of 103. Responded to fluid resuscitation. Magnesium normal at 2.4, potassium 5.2 on day of discharge. Tolerating p.o. intake. Hypotension: Dehydration: * Soft blood pressure on admission. Positive orthostatics, resolved with fluid resuscitation and holding diltiazem. Recommend holding diltiazem at discharge until follow-up with PCP and reevaluate blood pressure. Nausea and vomiting: * Responded to Zofran. No vomiting during admission Chronic pain: * Continue oxycodone 10 mg every 6 hours as needed based on home regimen. Tobacco dependence: Nicotine patch during admission. Recommended smoking cessation Exam Data for Last 24 hours Vital signs and Labs for Last 24 Hours: Temp Pulse Resp BP Pulse Ox O2 Del Method 98.4 F 79 17 120/61 92 L Room Air 10/07/24 04:00 10/07/24 04:00 10/07/24 04:00 10/07/24 04:00 10/07/24 04:00 10/07/24 04:00 Laboratory Results - last 24 hr 10/06/24 06:35: WBC 8.2, RBC 3.46 L, Hgb 11.0 L D, Hct 33.3 L, MCV 96.2, MCH 32.1 H, MCHC 33.3, RDW 13.3, Plt Count 271 D, MPV 9.5, Neut % (Auto) 57.8, Lymph % (Auto) 28.6, [place] % (Auto) 9.8 H, Eos % (Auto) 2.8, Baso % (Auto) 0.5, Neut # (Auto) 4.8, Lymph # (Auto) 2.4, [place] # (Auto) 0.8, Eos # (Auto) 0.2, Baso # (Auto) 0.0, Sodium 131 L, Potassium 4.7, Chloride 103, Carbon Dioxide 22, Anion Gap 10.7, BUN 29 H, Creatinine 1.90 H D, Estimated Creat Clear 27, Estimated GFR 26 L, Est GFR ( Amer) 31 L D, Glucose 94, Calcium 8.8, Magnesium 1.6, Total Bilirubin 0.4, AST 24, ALT 15, Alkaline Phosphatase 112, Total Protein 6.4, Albumin 3.4 L D, Globulin 3.0, Albumin/Globulin Ratio 1.1, Triglycerides 115, Cholesterol 175, LDL Cholesterol Direct 89.90 L, VLDL Cholesterol 23, HDL Cholesterol 41, Cholesterol/HDL Ratio 4.3 H 10/07/24 06:20: WBC 7.2, RBC 3.67 L, Hgb 11.8 L, Hct 35.3 L, MCV 96.2, MCH 32.2 H, MCHC 33.4, RDW 13.1, Plt Count 318, MPV 9.1, Neut % (Auto) 59.9, Lymph % (Auto) 26.6, [place] % (Auto) 10.1 H, Eos % (Auto) 2.5, Baso % (Auto) 0.6, Neut # (Auto) 4.3, Lymph # (Auto) 1.9, [place] # (Auto) 0.7, Eos # (Auto) 0.2, Baso # (Auto) 0.0, Sodium 133 L, Potassium 5.2 H, Chloride 103, Carbon Dioxide 25, Anion Gap 10.2, BUN 25 H, Creatinine 1.60 H, Estimated Creat Clear 33, Estimated GFR 31 L, Est GFR ( Amer) 38 L D, Glucose 93, Calcium 9.0, Magnesium 2.4 H D, Total Bilirubin 0.3, AST 23, ALT 14, Alkaline Phosphatase 124, Total Protein 6.6, Albumin 3.6, Globulin 3.0, Albumin/Globulin Ratio 1.2 I & O for Last 24 hours: Intake & Output 10/04/24 10/05/24 10/06/24 10/07/24 23:59 23:59 23:59 23:59 Intake Total 2762 / 2762 Output Total 0 / 0 Balance 276 / 2762 Weight 66.179 kg 66.179 kg 68.447 kg Constitutional Constitutional: no acute distress, average body habitus, chronically ill appearing and cooperative *Routine HEENT Exam Head: Present normocephalic Eye: Present EOMI and PERRL ENT: Present mucous membranes moist *Routine Neck Exam Neck: Present supple; Absent lymphadenopathy *Routine Respiratory Exam Respiratory: Present CTA bilaterally; Absent rhonchi, wheezes or crackles *Routine Cardiovascular Exam Cardiovascular: Present RRR *Routine Abdominal Exam Abdominal: Present soft and normoactive bowel sounds; Absent tenderness *Routine Rectal Exam Patient deferred: visual exam *Routine Exam Patient deferred: external exam *Routine Extremities Exam Extremities: Absent cyanosis, clubbing or edema *Routine Skin Exam Skin: Present warm; Absent rash *Routine Neurological Exam Neurological: Present alert, oriented X3 and moving all extremities; Absent altered mental status Routine Psychiatric Exam Psychiatric: Present normal affect Results Data Completed and Pending Labs on day of discharge: Labs from last 24 hours 10/07/24 10/06/24 06:20 06:35 WBC 7.2 8.2 RBC 3.67 L 3.46 L Hgb 11.8 L 11.0 L D Hct 35.3 L 33.3 L MCV 96.2 96.2 MCH 32.2 H 32.1 H MCHC 33.4 33.3 RDW 13.1 13.3 Plt Count 318 271 D MPV 9.1 9.5 Neut % (Auto) 59.9 57.8 Lymph % (Auto) 26.6 28.6 [place] % (Auto) 10.1 H 9.8 H Eos % (Auto) 2.5 2.8 Baso % (Auto) 0.6 0.5 Neut # (Auto) 4.3 4.8 Lymph # (Auto) 1.9 2.4 [place] # (Auto) 0.7 0.8 Eos # (Auto) 0.2 0.2 Baso # (Auto) 0.0 0.0 Sodium 133 L 131 L Potassium 5.2 H 4.7 Chloride 103 103 Carbon Dioxide 25 22 Anion Gap 10.2 10.7 BUN 25 H 29 H Creatinine 1.60 H 1.90 H D Estimated Creat Clear 33 27 Estimated GFR 31 L 26 L Est GFR ( Amer) 38 L D 31 L D Glucose 93 94 Calcium 9.0 8.8 Magnesium 2.4 H D 1.6 Total Bilirubin 0.3 0.4 AST 23 24 ALT 14 15 Alkaline Phosphatase 124 112 Total Protein 6.6 6.4 Albumin 3.6 3.4 L D Globulin 3.0 3.0 Albumin/Globulin Ratio 1.2 1.1 Triglycerides 115 Cholesterol 175 LDL Cholesterol Direct 89.90 L VLDL Cholesterol 23 HDL Cholesterol 41 Cholesterol/HDL Ratio 4.3 H DS: Diagnosis Discharge Diagnosis (1) MASON (acute kidney injury): Status: Acute Code(s): N17.9 - Acute kidney failure, unspecified (2) Hypovolemia: Status: Acute Code(s): E86.1 - Hypovolemia (3) Nausea and vomiting: Status: Acute Code(s): R11.2 - Nausea with vomiting, unspecified Meds Home Medications and Allergies Home Medications ?Medication ?Instructions ?Recorded ?Confirmed ?Type aspirin 81 mg tablet,delayed 81 mg PO DAILY 03/25/20 10/05/24 History release (Adult Aspirin Regimen) diltiazem HCl 240 mg 240 mg PO DAILY #90 caps 12/26/23 10/05/24 Rx capsule,extended release 24 hr naproxen 500 mg tablet (Naprosyn) 500 mg PO BID #60 tabs 08/27/24 10/05/24 Rx lorazepam 1 mg tablet 0.5 mg (1/2 x 1 mg) PO TID Anxiety 08/31/24 10/05/24 Rx 30 days #45 tabs oxycodone-acetaminophen 10 mg-325 1 tab PO Q6H PRN pain #120 tabs 09/28/24 10/05/24 Rx mg tablet (Percocet) methocarbamol 500 mg tablet 500 mg PO TID Pain #90 tabs 10/03/24 10/05/24 Rx clopidogrel 75 mg tablet 75 mg PO DAILY 10/05/24 10/05/24 History fluoxetine 20 mg capsule 20 mg PO DAILY 10/05/24 10/05/24 History omeprazole 40 mg capsule,delayed 40 mg PO DAILY 10/05/24 10/05/24 History release ropinirole 1 mg tablet 1 mg PO DAILY 10/05/24 10/05/24 History ranolazine 500 mg tablet,extended 500 mg PO BID #0 tabs 10/07/24 Rx release,12 hr New Prescriptions to Start Prescriptions: Allergies Allergy/AdvReac Type Severity Reaction Status Date / Time methylprednisolone AdvReac Severe Anaphylaxis Verified 10/05/24 18:34 Discharge Plan Disposition Patient Disposition: Home, Self-Care Condition: Fair Follow up Plan Follow up with: Rafael Pritchett MD [Primary Care Provider] - Enter time for follow up Prescriptions/Medication Reconciliation: New ranolazine 500 mg Tablet Extended Release 12 Hr 500 mg PO BID Qty: 0 0RF Continued aspirin [Adult Aspirin Regimen] 81 mg tablet,delayed release (DR/EC) 81 mg PO DAILY lorazepam 1 mg tablet 0.5 mg PO TID 30 Days Qty: 45 1RF oxycodone-acetaminophen [Percocet] 10-325 mg tablet 1 tab PO Q6H PRN (Reason: pain) Qty: 120 0RF naproxen [Naprosyn] 500 mg tablet 500 mg PO BID Qty: 60 2RF methocarbamol 500 mg tablet 500 mg PO TID Qty: 90 0RF ropinirole 1 mg tablet 1 mg PO DAILY clopidogrel 75 mg tablet 75 mg PO DAILY omeprazole 40 mg capsule,delayed release(DR/EC) 40 mg PO DAILY fluoxetine 20 mg capsule 20 mg PO DAILY Held diltiazem HCl 240 mg capsule,extended release 24hr 240 mg PO DAILY Qty: 90 3RF Hold Instructions: until follow-up with PCP and re-eval BP Problem Reconciliation Problems Reviewed?: Yes Patient Discharge Instructions ACTIVITY: Continue current activity DIET: continue same diet Patient Instructions: Dehydration, Acute Kidney Injury Print Language: Italian Providers Primary Care Provider: Rafael Pritchett Admit Provider: Jonathon Montaño Attending Provider: Jonathon Montaño
--- NOTE | 2024-10-07 07:30 | PC.NURSE ---
Pt. is alert and orientated x 4. Pt. on room air. Pt. had a good night. slept well. c/o chronic back pain medicated x 2 per MAR. Pt. up ambulating to and from bathroom. denies dizziness. Pt. refused bed alarm. Pt. hoping to go home today. VSS, personal items and call griffiths in reach.
[2024-10-07 07:48] VITALS: BP 125/78; PULSE 83; RESP 20; TEMP 36.4; O2SAT 90
[2024-10-07] MEDS: METHOCARBAMOL 500MG TABLET 500 MG PO (08:37)
[2024-10-07] MEDS: CLOPIDOGREL 75MG TAB 75 MG PO (08:37)
[2024-10-07] MEDS: RANOLAZINE 500MG ER TABLET 500 MG PO (08:37)
[2024-10-07] MEDS: ROPINIROLE 1MG TABLET 1 MG PO (08:37)
[2024-10-07] MEDS: FLUOXETINE 20MG CAPSULE 20 MG PO (08:37)
[2024-10-07] MEDS: LORazepam 1MG TABLET 0.5 MG PO (08:37)
[2024-10-07] MEDS: ASPIRIN EC 81MG TABLET 81 MG PO (08:37)
[2024-10-07] MEDS: NICOTINE 21MG/24HR PATCH 21 MG TD (08:37)
--- NOTE | 2024-10-08 10:34 | SW/DCPLANNER ---
Addendum entered by Elaine De Santiago 10/08/24 10:48: Patient stated declines at this time for Home Health Services. Akash Wilson Original Note: Spoke with patient on the phone. Patient stated that her son is coming to pick her up and that she has been vomiting still and taking her to see Dr Valencia. Patient stated that she didnt know about her new medicine and asked where to pick it up from and told patient to get it from [facility]. Patient stated that she has no concerns or questions at this time. Aaksh Wilson
== END 2024-10-07 10:38 | disposition home or self-care (01) ==
LOC: ER 16:58 → 2ND 18:45
PROVIDERS: Nurse Practitioner Family; Admitting Provider Internal Medicine Adolescent Medicine; Emergency Provider Emergency Medicine; PCP Family Medicine; Visit Provider Internal Medicine Adolescent Medicine
DX: N17.9 Acute kidney failure, unspecified (principal); E87.1 Hypo-osmolality and hyponatremia; E86.1 Hypovolemia; E86.0 Dehydration; J44.9 Chronic obstructive pulmonary disease, unspecified; R11.2 Nausea with vomiting, unspecified; F17.210 Nicotine dependence, cigarettes, uncomplicated; M19.90 Unspecified osteoarthritis, unspecified site; Z79.82 Long term (current) use of aspirin; Z79.899 Other long term (current) drug therapy; Z71.6 Tobacco abuse counseling; Z86.73 Personal history of transient ischemic attack (TIA), and cerebral infarction without residual deficits
CPT/HCPCS: 36415; 71045; 80053; 80061; 81001; 82550; 83690; 83735; 83880; 84484; 85025; 86803; 87389; 93005; 97161; 99285; G0378; J2405; J3475; J7120

== ENCOUNTER 2024-10-08 19:23 | Outpatient (CLI) | payer MEDICARE, OTHER, SELFPAY ==
[2024-10-08 20:12] LABS: Albumin Level 3.9 g/dl (3.5-5.0); Chloride 98 mmol/L (98-107)
[2024-10-08 20:13] LABS: Potassium 5.5 mmoL/L (3.5-5.1); Sodium 129 mmol/L (136-145)
[2024-10-08 20:15] LABS: Blood Urea Nitrogen 21 mg/dl (7-17); Estimated Glomerular Filt Rate 44 ml/min (>60); GFR (African American) 53 ML/MIN (>60)
[2024-10-08 20:16] LABS: Alanine Aminotransferase 15 U/L (12-78); Albumin/Globulin Ratio 1.3 (1.1-1.8); Alkaline Phosphatase 132 U/L (38-126); Anion Gap 11.5 mEq/L (5-15); Aspartate Amino Transferase 22 U/L (14-36); Bilirubin,Total 0.3 mg/dl (0.2-1.3); Calcium 9.4 mg/dl (8.4-10.2); Carbon Dioxide 25 mmol/L (22.0-30.0); Glucose 98 mg/dl (74-100); Total Protein,Serum 6.9 g/dl (6.3-8.2)
== END 2024-10-08 23:59 | disposition home or self-care (01) ==
LOC: LAB.DROPOF 19:25
PROVIDERS: PCP Family Medicine; Visit Provider Family Medicine
DX: I10 Essential (primary) hypertension (principal)
CPT/HCPCS: 80053

== ENCOUNTER 2024-10-17 08:17 | Day surgery (SDC) | payer MEDICARE, OTHER, SELFPAY ==
[2024-10-17] VITALS (13 sets, daily range): BP systolic 87–144; BP diastolic 44–77; PULSE 66–89; RESP 16–18; TEMP 36.9; O2SAT 92–96; BMI 25.0
--- NOTE | 2024-10-17 07:08 | IR_ITS ---
APPROVED REPORT Patient Location: Outpatient PROCEDURES Left heart catheterization Left ventriculogram Selective coronary angiogram Drug-eluting stent deployment to the proximal and mid LAD in a contiguous manner INDICATION Coronary artery disease, Angina pectoris, Informed consent was obtained prior to the procedure. COMPLICATIONS None Estimated Blood Loss: Less than 10 mls TECHNIQUE One percent lidocaine was used to anesthetize the right groin. The right femoral artery was accessed via the Seldinger technique. A 4-Argentine sheath was placed in the right femoral artery. The JL-4 and JR-4 catheter was also used to perform left heart catheterization left ventriculogram and selective coronary angiogram. At the end the diagnostic angiogram 4 Argentine sheath exchanged for a 6 Argentine sheath and therapeutic heparin is administered giving a therapeutic ACT. A JL 3 guide catheter was placed in left main artery followed by Choice PT extra-support wire placed into the LAD. A 2.75 x 15 mm Bruce frontier stent was placed in the proximal LAD at 14 coral reducing the stenosis. An additional 2.5 x 38 mm Bruce frontier stent was placed distal to the for stent is still overlapping which then crossed over the first diagonal artery extending to the mid LAD and then deployed at 16 coral reducing the stenosis to 0%. MAXI-3 flow was present before and after the procedure. At the end the procedure the apparatus was removed the groin is reprepped closure change sheath was removed good hemostasis was achieved using Perclose device patient was transferred to the postop putting in stable condition ANGIOGRAPHIC RESULTS The left main artery Normal The left anterior descending artery Has proximal 30% stenosis with a concentric 70 to 80% stenosis followed by additional 50% mid vessel stenosis The circumflex artery Widely patent in the proximal and midportion with a distal eccentric 40% stenosis The right coronary artery Large dominant with proximal 30% followed by additional smooth 30% stenoses after a large RV marginal branch The JOHNSON ventriculogram reveals Normal 65 to 70% The left ventricular end-diastolic pressure Less than 10 mmHg IMPRESSION Severe disease in the proximal to mid LAD as described above with successful stenting reducing the lesion to 0% with 2 contiguous drug-eluting stents Normal to slightly hyperdynamic ejection fraction Normal LVEDP PLAN 1. Dual antiplatelet therapy 2. Cardiac rehabilitation 3. Avoidance of tobacco products 4. Risk factor modification 5. LDL less than 55 to achieve that high intensity statin Electronically signed by : Nicola London MD 10/17/2024 13:58:36
[2024-10-17 08:55] LABS: Chloride 103 mmol/L (98-107); Sodium 134 mmol/L (136-145)
[2024-10-17 08:56] LABS: Potassium 4.7 mmoL/L (3.5-5.1)
[2024-10-17 08:58] LABS: Blood Urea Nitrogen 26 mg/dl (7-17)
[2024-10-17 08:59] LABS: Anion Gap 13.7 mEq/L (5-15); Calcium 9.7 mg/dl (8.4-10.2); Carbon Dioxide 22 mmol/L (22.0-30.0); Creatinine Clearance Estimated 33 mL/min (50-200); Estimated Glomerular Filt Rate 31 ml/min (>60); GFR (African American) 38 ML/MIN (>60); Glucose 111 mg/dl (74-100)
[2024-10-17 09:22] LABS: Basophils # 0.1 K/mm3 (0-0.2); Basophils % 0.5 % (0.1-2.0); Eosinophils # 0.3 K/mm3 (0.0-0.4); Eosinophils % 2.9 % (0.1-12.0); Hematocrit 39.3 % (37.0-47.0); Hemoglobin 13.1 g/dL (12.2-16.2); Lymphocytes # 2.4 K/mm3 (0.7-4.5); Lymphocytes % 25.1 % (10-50); Mean Corpuscular HGB Conc 33.3 g/dL (31.8-35.4); Mean Corpuscular Hemoglobin 31.9 pg (27.0-31.2); Mean Corpuscular Volume 95.6 fl (81-99); Mean Platelet Volume 9.3 fl (7.4-10.4); Monocytes # 0.7 K/mm3 (0.1-1.0); Monocytes % 6.9 % (1.7-9.3); Neutrophils % 64.1 % (37.0-80.0); Platelet Count 372 K/mm3 (142-424); Red Blood Count 4.11 M/mm3 (4.20-5.40); Red Cell Distribution Width 13.2 % (11.5-17.5); White Blood Count 9.4 K/mm3 (4.8-10.8)
[2024-10-17] MEDS: HEPARIN 1,000 UNITS/500ML NS (CATH LAB) 3000 UNIT IV (11:48)
[2024-10-17] MEDS: 0.9 % SODIUM CHLORIDE 500 ML 25 ML IV (11:48)
[2024-10-17] MEDS: LIDOCAINE 1% 10ML MDV 20 ML IJ (11:49)
[2024-10-17] MEDS: diphenhydrAMINE 50MG/ML VIAL 50 MG IV (11:49)
[2024-10-17] MEDS: HEPARIN 1,000 UNITS/ML 10ML VIAL (CATH LAB) 10000 UNIT IV ×3 (11:49→12:50)
[2024-10-17] MEDS: NITROGLYCERIN 800MCG/8ML SYR (CATH LAB) 800 MCG IA (11:49)
[2024-10-17] MEDS: VERAPAMIL 2.5MG/ML 2ML VIAL 2.5 MG IV (11:49)
[2024-10-17] MEDS: MIDAZOLAM HCL 1MG/ML 5ML VIAL 1 MG IV ×3 (12:22→12:47)
[2024-10-17] MEDS: FENTANYL 100MCG/2ML VIAL 50 MCG IV (12:23)
[2024-10-17] MEDS: FENTANYL 100MCG/2ML VIAL 25 MCG IV (12:29)
[2024-10-17] MEDS: IOPAMIDOL-370 (76%);100ML BOTTLE 110 ML IV (14:06)
[2024-10-17 14:10] LABS: CATHL Activated Clotting Time 217 SEC (74-125)
== END 2024-10-17 15:54 | disposition home or self-care (01) ==
PROVIDERS: PCP Family Medicine; Visit Provider Internal Medicine
DX: I25.118 Atherosclerotic heart disease of native coronary artery with other forms of angina pectoris (principal); I10 Essential (primary) hypertension; R93.1 Abnormal findings on diagnostic imaging of heart and coronary circulation; R94.39 Abnormal result of other cardiovascular function study; Z86.73 Personal history of transient ischemic attack (TIA), and cerebral infarction without residual deficits; E78.5 Hyperlipidemia, unspecified; F17.210 Nicotine dependence, cigarettes, uncomplicated; J44.9 Chronic obstructive pulmonary disease, unspecified; Z95.5 Presence of coronary angioplasty implant and graft; Z79.899 Other long term (current) drug therapy; I77.1 Stricture of artery
CPT/HCPCS: 80048; 85025; 85347; 92928; 93458; 99152; 99153; C1725; C1760; C1769; C1874; C9600; J1200; J1644; J2250; J3010; Q9967

== ENCOUNTER 2025-01-22 10:29 | Outpatient (CLI) | payer MEDICARE, SELFPAY | END 2025-01-22 23:59 | disposition home or self-care (01) | LOC: RT 10:30 | PROVIDERS: PCP Family Medicine; Visit Provider Physician Assistant | DX: R00.1 Bradycardia, unspecified (principal); G47.9 Sleep disorder, unspecified; R40.0 Somnolence | CPT/HCPCS: 93270 ==

== ENCOUNTER 2025-06-17 15:16 | Outpatient (CLI) | payer MEDICARE, OTHER, SELFPAY ==
[2025-06-17 20:16] LABS: Albumin Level 4.1 g/dl (3.5-5.0); Chloride 100 mmol/L (98-107); Potassium 4.6 mmoL/L (3.5-5.1); Sodium 134 mmol/L (136-145)
[2025-06-17 20:19] LABS: Alanine Aminotransferase 11 U/L (12-78); Albumin/Globulin Ratio 1.4 (1.1-1.8); Alkaline Phosphatase 117 U/L (38-126); Anion Gap 11.6 mEq/L (5-15); Aspartate Amino Transferase 25 U/L (14-36); Bilirubin,Total 0.6 mg/dl (0.2-1.3); Blood Urea Nitrogen 17 mg/dl (7-17); Carbon Dioxide 27 mmol/L (22.0-30.0); Cholesterol 148 mg/dl (140-200); Creatinine,Serum 1.00 mg/dl (0.52-1.04); Estimated Glomerular Filt Rate 54 ml/min (>60); GFR (African American) 65 ML/MIN (>60); Globulin 3.0 g/dL (1.3-3.2); Total Protein,Serum 7.1 g/dl (6.3-8.2); Triglycerides 174 mg/dl (30-150)
[2025-06-17 20:20] LABS: Calcium 9.1 mg/dl (8.4-10.2); Glucose 105 mg/dl (74-100); HDL Cholesterol 46 mg/dl (40-60)
--- OUTSIDE RECORDS SUMMARY | 2025-06-18 14:30 | XMS_ITS | Encounter Summary ---
Author Organization [facility] [place] [address] Care Team Providers Care Control Engineer Name Role Phone Unavailable Primary Care Provider Unavailabl e Reason for Referral * Interventional Radiology (Routine) - Closed Specialty Diagnoses / Procedures Referred By Contac t Referred To Contact Radiology Diagnoses Osteoporosis with pathological fracture of multiple sites, initial encounter Non-traumatic compression fracture of thoracic vertebra, initial encounter Procedures IR GUIDED PERCUTANEOUS VERTEBROPLASTY CERVICOTHORACIC Ivana Contreras PA-C [facility] [address] [place] [address] Phone: tel: fax: Referral ID Status Reason Start Date Expiration Date Visits Re quested Visits Authorized [id number] Closed 04/13/2017 04/13/2018 1 1 Encounter Details Date Type Department Care Team (Latest Contact Info) Description 04/13/2017 Pre-Imaging Procedure MD Adult Med [address] [place], [place] [id number] Ivana Contreras PA-C Osteoporosis with pathological fracture of multiple sites, initial encounter (Primary Dx); Non-traumatic compression fracture of thoracic vertebra, initial encounter (HCC) Social History Tobacco Use Types Packs/Day Years Used Date Smoking Tobacco: Never Assessed Comments Unknown Sex and Gender Information Value Date Recorded Sex Assigned at Not on file Legal Sex Female 2:56 PM EDT Gender Identity Not on file Sexual Orientation Not on file documented as of this encounter Plan of Treatment Not on file documented as of this encounter Results * IR GUIDED PERCUTANEOUS VERTEBROPLASTY CERVICOTHORACIC (04/20/2017 1:58 PM EDT) Anatomical Region Laterality Modality Interventional R adiology 04/20/2017 1:58 PM EDT Impressions 04/20/2017 2:12 PM EDT Technically successful T7 vertebroplasty. RECOMMENDATION: Appropriate osteoporosis management to reduce incidence of subsequent fracture. Narrative 04/20/2017 2:12 PM EDT FLUOROSCOPICALLY GUIDED VERTEBROPLASTY, [04/20/2017 1:58 PM] HISTORY: M80.08XA, Age-related osteoporosis with current pathological fracture, vertebrae, initial encounter for fracture. Intractable back pain, failed conservative management. PERFORMED BY: Dr. Matthews. Procedure: Written and verbal informed consent were obtained. The patient was placed prone and the back prepped and draped in sterile fashion. The skin overlying the vertebral body was anesthetized with lidocaine. Under fluoroscopic guidance, the T7 vertebral body was accessed via bilateral transpedicular approach with 13 gauge bone biopsy needles. Vertebroplasty was then performed with polymethylmethacrylate mixed with barium powder injected under fluoroscopic control. When adequate filling was achieved, the needle were removed and pressure held until hemostasis was achieved. A sterile dressing was then applied. Post-procedure fluoroscopic spot films were obtained. There was no immediate complication and the patient left the IR suite in stable condition. MEDICATIONS: Preoperative IV antibiotic was administered, type and dosage in the patients chart. Sedation provided by the anesthesia service. FINDINGS: T7 vertebral compression fracture present. Adequate filling of the vertebral body(bodies) was achieved. There was no significant extravasation. FLUOROSCOPY TIME: 4.5 minutes, 0 exposures Procedure Note Selvin Chavez MD - 04/20/2017 FLUOROSCOPICALLY GUIDED VERTEBROPLASTY, [04/20/2017 1:58 PM] HISTORY: M80.08XA, Age-related osteoporosis with current pathologicalfracture, vertebrae, initial encounter for fracture. Intractable back pain, failed conservative management. PERFORMED BY: Dr. Matthews. Procedure: Written and verbal informed consent were obtained. The patientwas placed prone and the back prepped and draped in sterile fashion. Theskin overlying the vertebral body was anesthetized with lidocaine. Underfluoroscopic guidance, the T7 vertebral body was accessed via bilateraltranspedicular approach with 13 gauge bone biopsy needles. Vertebroplasty was thenperformed with polymethylmethacrylate mixed with barium powder injected underfluoroscopic control. When adequate filling was achieved, the needle were removed and pressure held until hemostasis was achieved. A sterile dressing was then applied. Post-procedure fluoroscopic spot films were obtained. There wasno immediate complication and the patient left the IR suite in stablecondition. MEDICATIONS: Preoperative IV antibiotic was administered, type and dosagein the patients chart. Sedation provided by the anesthesia service. FINDINGS: T7 vertebral compression fracture present. Adequate filling ofthe vertebral body(bodies) was achieved. There was no significantextravasation. FLUOROSCOPY TIME: 4.5 minutes, 0 exposures IMPRESSION: Technically successful T7 vertebroplasty. RECOMMENDATION: Appropriate osteoporosis management to reduce incidenceof subsequent fracture. us Ivana Contreras PA-C [facility] ORDERABLES Final Resu lt documented in this encounter Visit Diagnoses Diagnosis Osteoporosis with pathological fracture of multiple sites, initial encounter- Primary Non-traumatic compression fracture of thoracic vertebra, initial encounter Osteoporosis with pathological fracture of multiple sites, initial encounter Non-traumatic compression fracture of thoracic vertebra, initial encounter documented in this encounter
--- OUTSIDE RECORDS SUMMARY | 2025-06-18 14:30 | XMS_ITS | Clinical Summary ---
Author Organization [facility] Address [address] [place] [address] Care Team Providers Care General Internist Name Role Phone Rafael Prithcett MD Primary Care Provider [phone] Family History Medical History Relation Name Comments Arthritis Other 1 Cardiac disorder Other 2 Diabetes Other 3 Hyperlipidemia Other 4 Hypertension Other 5 Other cancer Other 6 Heart attack Other 7 Relation Name Status Comments Other 1 Other 2 Other 3 Other 4 Other 5 Other 6 Other 7 Social History Tobacco Use Types Packs/Day Years Used Date Smoking Tobacco: Every Day Alcohol Use Standard Drinks/Week Comments No 0 (1 standard drink = 0.6 oz pur e alcohol) Comments Unknown Sex and Gender Information Value Date Recorded Sex Assigned at Not on file Legal Sex Female 7:30 PM EDT Gender Identity Not on file Sexual Orientation Not on file Last Filed Vital Signs Vital Sign Reading Time Taken Comments Blood Pressure - - Pulse - - Temperature - - Respiratory Rate - - Oxygen Saturation - - Inhaled Oxygen Concentration - - Weight 83.6 kg (184 lb 4.9 oz) 08/02/2016 9:59 A M EST Height 167.6 cm (5' 6 ) 08/02/2016 9:59 AM EST Body Mass Index 29.75 08/02/2016 9:59 AM EST Plan of Treatment Health Maintenance Due Date Last Done Comments [facility]-Bone Density Scan 1949 [facility]-Depression Screening 1949 [facility]-/Child/Adol SDOH Screenings 1950 [facility]- SDOH Screenings 1967 [facility]-Adult SDOH Screenings 1967 [facility]-DTaP,Tdap,and Td Vaccine s (1 - Tdap) 1968 [facility]-Pneumococcal Vaccine: 50 + Years (1 of 1 - PCV) 1999 [facility]-Zoster Vaccines (1 of 2) 1999 [facility]-RSV Vaccine: 60+ Years o r (1 - 1-dose 75+ series) 2024 [id number] Vaccine (1 - 20 24-25 season) 2025 [facility]-Influenza Vaccine (#1) 2025 HPV Vaccines Aged Out No longer eligi ble based on patient's age to complete this topic [facility]-HIB Vaccines Aged Out No longer e ligible based on patient's age to complete this topic [facility]-Hepatitis A Vaccines Aged Out No longer eligible based on patient's age to complete this topic [facility]-IPV Vaccines Aged Out No longer e ligible based on patient's age to complete this topic [facility]-Rotavirus Vaccines Aged Out No lo nger eligible based on patient's age to complete this topic Care Teams General Internist Relationship Specialty Start Date End Date Rafael Pritchett MD PCP - General 02/06/21
--- OUTSIDE RECORDS SUMMARY | 2025-06-18 14:30 | XMS_ITS | Clinical Summary ---
Author Organization [facility] Address [address] [place] [address] Phone Care Team Providers Care Ice Cream Dipper Name Role Phone Unavailable Primary Care Provider Unavailabl e Allergies Active Allergy Reactions Criticality Noted Date Comments Adhesive 04/20/2017 Causes skin tears if left on too long Latex Rash 04/20/2017 Medications HYDROcodone-acet aminophen (NORCO) 7.5-325 mg Oral Tablet Take 1 Tab by mouth every 1 hour. Active LORazepam (ATIVAN) 1 mg Oral Tablet Take by mouth every 8 hours. Active losartan (COZAAR) 100 mg Oral Tablet Take 100 mg by mouth daily. Active atorvastatin (LIPITOR) 40 mg Oral Tablet Take 40 mg by mouth daily. Active clopidogrel (PLAVIX) 75 mg Oral Tablet Take by mouth daily. Active meloxicam (MOBIC) 15 mg Oral Tablet Take 15 mg by mouth daily. Active spironolactone (ALDACTONE) 25 mg Oral Tablet Take by mouth 2 times daily. Active diltiazem 240 mg Oral Capsule, Sust. Release 24 hr Take 240 mg by mouth daily. Active ranitidine (ZANTAC) 150 mg Oral Tablet Take 150 mg by mouth 2 times daily. Active ranolazine (RANEXA) 500 mg Oral Tablet Sustained Release 12 hr Take 500 mg by mouth 2 times daily. Active FLUoxetine (PROZAC) 20 mg Oral Tablet Take 20 mg by mouth daily. Active aspirin 81 mg Oral Tablet, Delayed Release (E.C.) Take by mouth daily. Active Active Problems Problem Noted Date Diagnosed Date Osteoporosis with pathological fracture of multi ple sites 04/13/2017 Non-traumatic compression fracture of thoracic v ertebra 04/13/2017 Collapse of thoracic vertebra Surgical History Surgery Date Site/Laterality Comments CHOLECYSTECTOMY EYE SURGERY left eye cataract LEG SURGERY left fx and left ankle BLADDER SURGERY lifted HERNIA REPAIR abd hernia with mesh TUBAL LIGATION DENTAL SURGERY full mouth extraction Medical History Medical History Date Comments Angina pectoris Carotid artery occlusion Cardiac dysrhythmia a fib Hyperlipidemia Hypertension CAD (coronary artery disease) Heartburn Arthritis Headache Stroke (HCC) 2015 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 Chronic kidney disease Depression Social History Tobacco Use Types Packs/Day Years Used Date Smoking Tobacco: Every Day Cigarettes 1 53 Alcohol Use Standard Drinks/Week Comments Yes 0 (1 standard drink = 0.6 oz pur e alcohol) occ Comments No Sex and Gender Information Value Date Recorded Sex Assigned at Not on file Legal Sex Female 2:56 PM EDT Gender Identity Not on file Sexual Orientation Not on file Obstetrics History Last Filed Vital Signs Vital Sign Reading Time Taken Comments Blood Pressure 108/60 04/20/2017 4:00 PM EDT Pulse 61 04/20/2017 4:00 PM EDT Temperature 36.9 C (98.4 F) 04/20/2017 4:00 PM EDT Respiratory Rate 18 04/20/2017 4:00 PM EDT Oxygen Saturation 95% 04/20/2017 4:00 PM EDT Inhaled Oxygen Concentration - - Weight 85.7 kg (189 lb) 04/20/2017 10:00 AM EDT Height - - Body Mass Index - - Plan of Treatment Health Maintenance Due Date Last Done Comments Wellness Exam Medicare 1953 Hepatitis C Screening 1967 DTaP/TDaP/Td (1 - Tdap) 1968 Pneumococcal Vaccine 50+ (1 of 1 - PCV) 1999 Zoster (1 of 2) 1999 Bone Density Screening 2014 RSV or 60+ (1 - 1-d ose 75+ series) 2024 COVID-19 Vaccine ( - 2023-2 5 season) 2025 Influenza Vaccine (#1) 2025 Hepatitis B Vaccine Aged Out No longe r eligible based on patient's age to complete this topic Meningococcal B Vaccine Aged Out No l onger eligible based on patient's age to complete this topic Medical Devices Implanted Type Area Asset Liability Analyst Device Identifier Shelf Expiration Date Model / Serial / Lot Vertaplex- [id number] Implanted:Qty: 1 on 04/20/2017 by Selvin Chavez MD [employer] 10/26/2019 / / [id number] Insurance [place]ARE [place] [employer] [place] B
== END 2025-06-17 23:59 | disposition home or self-care (01) ==
LOC: LAB.DROPOF 06-18 14:29
PROVIDERS: PCP Family Medicine; Visit Provider Family Medicine
DX: N28.9 Disorder of kidney and ureter, unspecified (principal); I25.10 Atherosclerotic heart disease of native coronary artery without angina pectoris
CPT/HCPCS: 80053; 80061